=== PATIENT | male | born 1960 | race Caucasian/White ===

== ENCOUNTER 2016-09-12 08:32 | Observation (INO) ==
[2016-09-12] MEDS ORDERED: 0.9 % Sodium Chloride 500 ML IVC ONE (08:35)
[2016-09-12] MEDS ORDERED: Aspirin 81 MG TAB.CHEW PO ONE (08:35)
--- NOTE | 2016-09-12 08:37 | Emergency Department Note ---
Disposition Clinical Impression: Chest pain Disposition: Admitted As Inpatient Condition: Fair General Adult HPI - General Chief complaint: ED Chest Pain Stated complaint: CP/BEN Time Seen by Provider: 09/12/16 08:33 - Related Data Home Medications Medication Instructions Recorded Confirmed ALPRAZolam [Xanax 1 MG Tablet] 1 mg PO QID 06/29/15 09/12/16 Albuterol Sulfate [Albuterol 1 - 2 puff IH Q6HR PRN 06/29/15 09/12/16 Inhaler] Atorvastatin [Lipitor] 40 mg PO DAILY 06/29/15 09/12/16 Mirabegron [Myrbetriq] 50 mg PO DAILY 06/29/15 09/12/16 Nitroglycerin [Nitrostat] 0.4 mg SL PRN PRN 08/19/15 09/12/16 Aspirin 81 mg PO DAILY 09/12/16 09/12/16 Mirtazapine [Remeron] 15 mg PO HS 09/12/16 09/12/16 OxyCODONE/APAP 5/325 [Percocet 1 tab PO Q6HR PRN 09/12/16 09/12/16 5/325 MG] Pantoprazole Sodium [Protonix] 20 mg PO DAILY 09/12/16 09/12/16 Previous Rx's Medication Instructions Recorded Dicyclomine [Bentyl] 20 mg PO QID #56 capsule 12/29/15 Simethicone [Gas-X] 80 mg PO TID #21 tab.chew 12/29/15 Allergies Allergy/AdvReac Type Severity Reaction Status Date / Time cephalexin [From Keflex] Allergy Hives Verified 12/25/15 11:12 ciprofloxacin [From Cipro] Allergy Hives Verified 12/25/15 11:12 clindamycin Allergy Rash Verified 12/24/15 19:52 meperidine [From Demerol] Allergy Rash Verified 12/24/15 19:52 Penicillins Allergy Rash Verified 12/24/15 19:52 sulfamethoxazole Allergy Rash Verified 12/24/15 19:52 [From Bactrim] trimethoprim [From Bactrim] Allergy Rash Verified 12/24/15 19:52 bupropion AdvReac Dizziness Verified 12/24/15 19:52 Past Medical History - Past Medical History Medical history: Reports: asthma, COPD, coronary artery disease, CVA, GERD, hyperlipidemia, hypertension, kidney stones, myocardial infarction, peripheral artery disease, renal disease, other Surgical history: Reports: angioplasty/stent, cholecystectomy, vasectomy Psychiatric history: Reports: no psych history - Social History Smoking Status: Former smoker Smokeless Tobacco Status: No Alcohol use: Reports: occasionally Drug use: Reports: none Course Vital Signs Temperature 97.8 F 09/12/16 08:34 Pulse Rate 72 09/12/16 08:34 Respiratory Rate 16 09/12/16 08:34 Blood Pressure 168/72 09/12/16 08:34 O2 Sat by Pulse Oximetry 98 09/12/16 08:34 Temperature 97.5 F L 09/14/16 04:15 Pulse Rate 70 09/14/16 04:15 Respiratory Rate 16 09/14/16 04:15 Blood Pressure 109/60 09/14/16 04:15 O2 Sat by Pulse Oximetry 98 09/14/16 04:15 Oxygen Delivery Oxygen Delivery Room Air Medical Decision Making - Lab Data Result diagrams: 09/13/16 05:11 09/13/16 05:11 Lab Results 09/12/16 09/12/16 09/12/16 Range/Units 09:05 09:05 09:05 WBC 6.5 (4.3-11.1) K/mcL RBC 4.11 L (4.19-5.50) M/mcL Hgb 12.3 L (12.9-16.9) g/dL Hct 37.6 (37.5-50.1) % MCV 91.5 (83.0-100.0) fL MCH 29.9 (28.0-33.3) pg MCHC 32.7 (31.6-35.5) g/dL RDW 14.4 (11.5-14.5) % Plt Count 136 L (140-400) K/mcL MPV 11.7 (9.4-12.4) fL Immature Gran % 0.3 (0-4) % Seg Neutrophils % 67.2 % Lymphocytes % 21.2 % Monocytes % 8.8 % Eosinophils % 2.2 % Basophils % 0.3 % Neutrophils # 4.4 (1.6-8.9) K/mcL Lymphocytes # 1.4 (0.6-4.6) K/mcL Monocytes # 0.6 (0.0-1.3) K/mcL Eosinophils # 0.1 (0.0-0.6) K/mcL Basophils # 0.0 (0.0-0.2) K/mcL PT 10.3 (9.4-12.1) Seconds INR 1.0 APTT 27.5 (26.0-36.0) Seconds Sodium (136-145) mEq/L Potassium (3.5-4.5) mEq/L Chloride (98-109) mEq/L Carbon Dioxide (19-29) mEq/L BUN (8-26) mg/dL Creatinine (0.72-1.25) mg/dL Est GFR ( Amer) (> 60) Est GFR (Non-Af Amer) (> 60) BUN/Creatinine Ratio (6-26) Glucose (70-99) mg/dL Calculated Osmolality (280-300) Calcium (8.6-10.8) mg/dL Troponin I (0-0.03) ng/mL B-Natriuretic Peptide 86 (0-100) pg/mL 09/12/16 09/12/16 Range/Units 09:05 09:05 WBC (4.3-11.1) K/mcL RBC (4.19-5.50) M/mcL Hgb (12.9-16.9) g/dL Hct (37.5-50.1) % MCV (83.0-100.0) fL MCH (28.0-33.3) pg MCHC (31.6-35.5) g/dL RDW (11.5-14.5) % Plt Count (140-400) K/mcL MPV (9.4-12.4) fL Immature Gran % (0-4) % Seg Neutrophils % % Lymphocytes % % Monocytes % % Eosinophils % % Basophils % % Neutrophils # (1.6-8.9) K/mcL Lymphocytes # (0.6-4.6) K/mcL Monocytes # (0.0-1.3) K/mcL Eosinophils # (0.0-0.6) K/mcL Basophils # (0.0-0.2) K/mcL PT (9.4-12.1) Seconds INR APTT (26.0-36.0) Seconds Sodium 139 (136-145) mEq/L Potassium 4.0 (3.5-4.5) mEq/L Chloride 110 H (98-109) mEq/L Carbon Dioxide 22 (19-29) mEq/L BUN 17 (8-26) mg/dL Creatinine 0.87 (0.72-1.25) mg/dL Est GFR ( Amer) > 60 (> 60) Est GFR (Non-Af Amer) > 60 (> 60) BUN/Creatinine Ratio 20 (6-26) Glucose 101 H (70-99) mg/dL Calculated Osmolality 290 (280-300) Calcium 8.5 L (8.6-10.8) mg/dL Troponin I 0.04 H* (0-0.03) ng/mL B-Natriuretic Peptide (0-100) pg/mL Attestation Statement - Attestation Attestation: I examined this patient and my medical decision-making was reviewed with the PLATING INSPECTOR/PA/Advanced Practice Nurse/Resident Physician. I agree with the documented findings, disposition and treatment plan as described except to the extent set forth below. [id number] time provided Patient reports chest pain since yesterday. He has a history of coronary artery disease and takes nitroglycerin. he has a previous history of myocardial infarctions. Patient seen and evaluated in conjunction with the resident physician Dr. Whalen. He appears in no acute distress on exam
--- NOTE | 2016-09-12 08:47 | Emergency Department Note ---
Disposition Clinical Impression: Chest pain Qualifiers: Chest pain type: unspecified Qualified Code(s): R07.9 - Chest pain, unspecified Disposition: Admitted As Inpatient Condition: Fair Chest Pain HPI - General Chief Complaint: ED Chest Pain Stated Complaint: CP/BEN Time Seen by Provider: 09/12/16 08:33 Source: patient Mode of arrival: ambulatory Limitations: no limitations Vital Signs Reviewed: Yes Nursing Notes Reviewed: Yes - History of Present Illness HPI Narrative: Patient with a past medical history of COPD as well as 5 stents and previous CABG that was performed 2 years ago presents for evaluation of chest pain and dyspnea similar to previous symptoms that required stents and CABG. Patient woke up with chest pain yesterday at 5:30 secondary to chest pain with associated shortness of breath and diaphoresis that was relieved with nitroglycerin. Patient awoke with similar symptoms but has not taken any nitroglycerin. - Related Data Home Medications Medication Instructions Recorded Confirmed ALPRAZolam [Xanax 1 MG Tablet] 1 mg PO QID 06/29/15 09/12/16 Albuterol Sulfate [Albuterol 1 - 2 puff IH Q6HR PRN 06/29/15 09/12/16 Inhaler] Atorvastatin [Lipitor] 40 mg PO DAILY 06/29/15 09/12/16 Mirabegron [Myrbetriq] 50 mg PO DAILY 06/29/15 09/12/16 Nitroglycerin [Nitrostat] 0.4 mg SL PRN PRN 08/19/15 09/12/16 Aspirin 81 mg PO DAILY 09/12/16 09/12/16 Mirtazapine [Remeron] 15 mg PO HS 09/12/16 09/12/16 OxyCODONE/APAP 5/325 [Percocet 1 tab PO Q6HR PRN 09/12/16 09/12/16 5/325 MG] Pantoprazole Sodium [Protonix] 20 mg PO DAILY 09/12/16 09/12/16 Previous Rx's Medication Instructions Recorded Dicyclomine [Bentyl] 20 mg PO QID #56 capsule 12/29/15 Simethicone [Gas-X] 80 mg PO TID #21 tab.chew 12/29/15 Allergies Allergy/AdvReac Type Severity Reaction Status Date / Time cephalexin [From Keflex] Allergy Hives Verified 12/25/15 11:12 ciprofloxacin [From Cipro] Allergy Hives Verified 12/25/15 11:12 clindamycin Allergy Rash Verified 12/24/15 19:52 meperidine [From Demerol] Allergy Rash Verified 12/24/15 19:52 Penicillins Allergy Rash Verified 12/24/15 19:52 sulfamethoxazole Allergy Rash Verified 12/24/15 19:52 [From Bactrim] trimethoprim [From Bactrim] Allergy Rash Verified 12/24/15 19:52 bupropion AdvReac Dizziness Verified 12/24/15 19:52 Review of Systems: CONSTITUTIONAL: Diaphoresis; No weight loss, fever, chills, weakness or fatigue. HEENT: Eyes: No visual changes. Ears, Nose, Throat: No hearing loss, difficulty talking or unable to swallow. SKIN: No rash or itching. CARDIOVASCULAR: Chest pain RESPIRATORY: SOB GASTROINTESTINAL: epigastric burning GENITOURINARY: No burning on urination or hematuria. NEUROLOGICAL: No headache, dizziness, syncope, paralysis, ataxia, numbness or tingling in the extremities. No change in bowel or bladder control. MUSCULOSKELETAL: No muscle pain, back pain, joint pain or stiffness. HEMATOLOGIC: No bleeding or bruising. LYMPHATICS: No enlarged lymphnodes. PSYCHIATRIC: No change to depression or anxiety. ENDOCRINOLOGIC: No reports of heat or cold intolerance, Polyuria ALLERGIES: No history of asthma, hives, eczema or rhinitis. Chest Pain PMH - Past Medical History Medical history: Reports: asthma, COPD, coronary artery disease, CVA, GERD, hyperlipidemia, hypertension, kidney stones, myocardial infarction, peripheral artery disease, renal disease, other Surgical history: Reports: angioplasty/stent, cholecystectomy, vasectomy Psychiatric history: Reports: no psych history - Social History Smoking Status: Former smoker Alcohol use: Reports: occasionally Drug use: Reports: none Physical Exam General appearance: NAD, conversant Eyes: anicteric sclerae, moist conjunctivae; PERRL HENT: Atraumatic; oropharynx clear with moist mucous membranes and no mucosal ulcerations Neck: Normal inspection; Trachea midline; FROM, supple Lungs: CTA, with normal respiratory effort and no intercostal retractions CV: RRR, no MRGs Abdomen: Soft, non-tender; no rebound or gaurding Extremities: No peripheral edema or extremity lymphadenopathy Skin: Normal temperature; no rash, ulcers or lesions Psych: Appropriate mood and affect Neuro: alert and oriented to person, place and time Course - Reevaluation(s) Reevaluation #1: Patient's pain significantly relieved with nitroglycerin. Patient is almost pain-free. Troponin slightly elevated at 0.04. This is consistent with previous troponins. Heparin drip held at this time. - Consultations Consultation #1: Dr. Lyons discussed with hospitalistTrevor. Patient excepted for admission Vital Signs Temperature 97.8 F 09/12/16 08:34 Pulse Rate 72 09/12/16 08:34 Respiratory Rate 16 09/12/16 08:34 Blood Pressure 168/72 09/12/16 08:34 O2 Sat by Pulse Oximetry 98 09/12/16 08:34 Temperature 97.7 F 09/12/16 18:41 Pulse Rate 67 09/12/16 18:41 Respiratory Rate 16 09/12/16 18:41 Blood Pressure 112/66 09/12/16 18:41 O2 Sat by Pulse Oximetry 94 09/12/16 18:41 Oxygen Delivery Oxygen Delivery Room Air Chest Pain - Medical Records Medical records reviewed: Yes I reviewed the patient's medical records. - Lab Data Lab results reviewed: Yes I reviewed the patient's lab results. Result diagrams: 09/12/16 09:05 09/12/16 09:05 Lab Results 09/12/16 09/12/16 09/12/16 Range/Units 09:05 09:05 09:05 WBC 6.5 (4.3-11.1) K/mcL RBC 4.11 L (4.19-5.50) M/mcL Hgb 12.3 L (12.9-16.9) g/dL Hct 37.6 (37.5-50.1) % MCV 91.5 (83.0-100.0) fL MCH 29.9 (28.0-33.3) pg MCHC 32.7 (31.6-35.5) g/dL RDW 14.4 (11.5-14.5) % Plt Count 136 L (140-400) K/mcL MPV 11.7 (9.4-12.4) fL Immature Gran % 0.3 (0-4) % Seg Neutrophils % 67.2 % Lymphocytes % 21.2 % Monocytes % 8.8 % Eosinophils % 2.2 % Basophils % 0.3 % Neutrophils # 4.4 (1.6-8.9) K/mcL Lymphocytes # 1.4 (0.6-4.6) K/mcL Monocytes # 0.6 (0.0-1.3) K/mcL Eosinophils # 0.1 (0.0-0.6) K/mcL Basophils # 0.0 (0.0-0.2) K/mcL PT 10.3 (9.4-12.1) Seconds INR 1.0 APTT 27.5 (26.0-36.0) Seconds Sodium (136-145) mEq/L Potassium (3.5-4.5) mEq/L Chloride (98-109) mEq/L Carbon Dioxide (19-29) mEq/L BUN (8-26) mg/dL Creatinine (0.72-1.25) mg/dL Est GFR ( Amer) (> 60) Est GFR (Non-Af Amer) (> 60) BUN/Creatinine Ratio (6-26) Glucose (70-99) mg/dL Calculated Osmolality (280-300) Calcium (8.6-10.8) mg/dL Troponin I (0-0.03) ng/mL B-Natriuretic Peptide 86 (0-100) pg/mL 09/12/16 09/12/16 Range/Units 09:05 09:05 WBC (4.3-11.1) K/mcL RBC (4.19-5.50) M/mcL Hgb (12.9-16.9) g/dL Hct (37.5-50.1) % MCV (83.0-100.0) fL MCH (28.0-33.3) pg MCHC (31.6-35.5) g/dL RDW (11.5-14.5) % Plt Count (140-400) K/mcL MPV (9.4-12.4) fL Immature Gran % (0-4) % Seg Neutrophils % % Lymphocytes % % Monocytes % % Eosinophils % % Basophils % % Neutrophils # (1.6-8.9) K/mcL Lymphocytes # (0.6-4.6) K/mcL Monocytes # (0.0-1.3) K/mcL Eosinophils # (0.0-0.6) K/mcL Basophils # (0.0-0.2) K/mcL PT (9.4-12.1) Seconds INR APTT (26.0-36.0) Seconds Sodium 139 (136-145) mEq/L Potassium 4.0 (3.5-4.5) mEq/L Chloride 110 H (98-109) mEq/L Carbon Dioxide 22 (19-29) mEq/L BUN 17 (8-26) mg/dL Creatinine 0.87 (0.72-1.25) mg/dL Est GFR ( Amer) > 60 (> 60) Est GFR (Non-Af Amer) > 60 (> 60) BUN/Creatinine Ratio 20 (6-26) Glucose 101 H (70-99) mg/dL Calculated Osmolality 290 (280-300) Calcium 8.5 L (8.6-10.8) mg/dL Troponin I 0.04 H* (0-0.03) ng/mL B-Natriuretic Peptide (0-100) pg/mL - Radiology Data Radiology results reviewed: Yes I reviewed the patient's radiology results. - EKG Data EKG attestation: Yes I reviewed and interpreted this EKG. EKG results narrative: EKG shows sinus rhythm with ventricular rate of 68. [place] interval 142. QRS 96. QTC 415. There is no evidence of acute ST elevation or depressions. There is some mild flattening of V2 T-wave otherwise no acute abnormality previous EKG of 04/20/16.
[2016-09-12] MEDS: Nitroglycerin 0.4 MG TAB.SUBL SL ONE ×2 (08:55→09:01)
[2016-09-12 09:14] LABS: Basophils % 0.3 %; Eosinophils # 0.1 K/mcL (0.0-0.6); Eosinophils % 2.2 %; Hematocrit 37.6 % (37.5-50.1); Hemoglobin 12.3 g/dL (12.9-16.9); Immature Granulocytes % 0.3 % (0-4); Lymphocytes # 1.4 K/mcL (0.6-4.6); Lymphocytes % 21.2 %; Mean Corpuscular HGB Conc 32.7 g/dL (31.6-35.5); Mean Corpuscular Hemoglobin 29.9 pg (28.0-33.3); Mean Corpuscular Volume 91.5 fL (83.0-100.0); Mean Platelet Volume 11.7 fL (9.4-12.4); Monocytes # 0.6 K/mcL (0.0-1.3); Monocytes % 8.8 %; Neutrophils # 4.4 K/mcL (1.6-8.9); Platelet Count 136 K/mcL (140-400); Red Blood Count 4.11 M/mcL (4.19-5.50); Red Cell Distribution Width 14.4 % (11.5-14.5); Segmented Neutrophils % 67.2 %
[2016-09-12 09:18] LABS: Prothrombin Time 10.3 Seconds (9.4-12.1)
[2016-09-12 09:20] LABS: Activated Partial Thrombo Time 27.5 Seconds (26.0-36.0)
[2016-09-12 09:26] LABS: Calcium 8.5 mg/dL (8.6-10.8); Carbon Dioxide 22 mEq/L (19-29); Chloride 110 mEq/L (98-109); Glucose 101 mg/dL (70-99); Sodium 139 mEq/L (136-145); eGFR For African Americans > 60 (> 60); eGFR For Non-African Americans > 60 (> 60)
[2016-09-12 09:58] LABS: BUN/Creatinine Ratio 20 (6-26); Blood Urea Nitrogen 17 mg/dL (8-26); Osmolality,Calculated 290 (280-300)
[2016-09-12] MEDS ORDERED: Naloxone 0.4 MG/ML INJ IVP PRN (11:38)
[2016-09-12] MEDS ORDERED: Nitroglycerin 0.4 MG TAB.SUBL SL PRN (11:40)
--- NOTE | 2016-09-12 12:02 | Internal Med History&Physical ---
<Maral Murray - Last Filed: 09/12/16 16:51> Date of Encounter: 09/12/16 Time of Encounter: 12:00 Assessment and Plan (1) Chest pain Current visit: Yes Status: Acute 1 patient was awakened with chest pain which was relieved with nitroglycerin he does have an extensive cardiac history with CABG stents mitral valve replacement. Cardiac troponins 0.04 he does seem to have chronically elevated troponins we will continue to cycle. 2 continuous cardiac monitoring 3 consult cardiology I did speak with Dr. Esteban will see patient 4 nitroglycerin as needed for chest pain 5 continue with aspirin and statin beta quyen Qualifiers: Chest pain type: unspecified Qualified Code(s): R07.9 - Chest pain, unspecified (2) HTN (hypertension) Current visit: Yes Status: Acute 1 continue home medications goals maintain systolic less than 140 Qualifiers: Hypertension type: essential hypertension Qualified Code(s): I10 - Essential (primary) hypertension (3) COPD (chronic obstructive pulmonary disease) Current visit: Yes Status: Acute 1 presently stable we will continue with bronchodilators 2 oxygen as needed Qualifiers: COPD type: unspecified COPD Qualified Code(s): J44.9 - Chronic obstructive pulmonary disease, unspecified (4) Coronary artery disease Current visit: No Status: Chronic 1 continue with aspirin and statin and beta quyen Qualifiers: Coronary Disease-Associated Artery/Lesion type: [place] artery [place] vs. transplanted heart: [place] heart Associated angina: with unstable angina Qualified Code(s): I25.110 - Atherosclerotic heart disease of [place] coronary artery with unstable angina pectoris (5) DVT prophylaxis Current visit: Yes Status: Acute Enoxaparin Internal Medicine - H&P: HPI Chief complaint: Chest pain Admitted From: Emergency Dept Plans for Post Hospital Care: Home History of present illness: Mr. Champion is a 56 year old male with extensive medical history including COPD coronary artery disease 5 stents CABG 2 years ago hypertension mitral valve replacement CVA. According to the patient he was awakened yesterday morning by midsternal chest pain that he described as squeezing spasm like that radiated to his epigastric region . He also experienced shortness of breath and diaphoresis during this episode. He took 2 nitroglycerin which did relieve his pain. This a.m. the patient awoke the same symptoms he did not take any nitroglycerin was concerned about his heart so he presented to the ER for evaluation. Patient does state that he has been seen at [facility] as well as [facility] for cardiology management. He was recently on Coumadin I suspect for mural thrombus?. He states he had a TOI completed 3 weeks ago and his physician switched him to full strength aspirin. He also states that he had a link placed last year after he sustained a stroke He states he has been doing well up until yesterday. According to ER records first cardiac troponins 0.04 which seems to be chronically elevated he did have an echo of June this year which revealed EF of 50-55% with mild mitral stenosis and mild tricuspid regurg and mild pulmonary hypertension. EKG with nonspecific T-wave changes chest x- ray no acute findings. Patient has been admitted for further workup and evaluation. Presently patient denies any chest pain or shortness of breath at this time. He does not appear to be in any respiratory distress. He is sinus rhythm on the monitor lung sounds are clear heart sounds S1-S2 with no rub clipped counts murmurs noted no peripheral edema. Patient does state that he does experience epigastric discomfort during his chest pain. He is concerned about the epigastric discomfort. It does appear that he did have GI workup approximately one month ago EGD was normal gastric emptying study was normal He is hemodynamically stable at this time. I reviewed this case with who agrees with plan. Past Med Surg Social Fam HX - Past Medical History Medical history: asthma, COPD, coronary artery disease, CVA, GERD, hyperlipidemia, hypertension, kidney stones, myocardial infarction, peripheral artery disease, renal disease, other Psychiatric history: no psych history - Past Surgical History Surgical History: angioplasty/stent, cholecystectomy, vasectomy - Social History Smoking Status: Former smoker Smokeless Tobacco Status: No Alcohol use: occasionally Drug use: none - Family History Father Living Status: Still Living Hx Family Cardiac Disorders: Yes Hx Family Respiratory Disorders: Yes (COPD) Hx Family Cancer: Yes Hx Family GI Disorders: Yes (Ulcers) Hx Family Endocrine Disorder: No Hx Family Neuromuscular Disorders: No Hx Family Neurologic Disorders: No Hx Family HEENT Disorders: No Hx Family Autoimmune Disorders: No Mother Living Status: Still Living Hx Family Cardiac Disorders: Yes (NH, stents) Hx Family Respiratory Disorders: No Hx Family Cancer: Yes (Stomach) Hx Family GI Disorders: No Hx Family Endocrine Disorder: Yes (DM) Hx Family Neuromuscular Disorders: No Hx Family Neurologic Disorders: No Hx Family HEENT Disorders: No Hx Family Autoimmune Disorders: No Internal Medicine - H&P: Meds ALPRAZolam [Xanax 1 MG Tablet] 1 mg PO QID 06/29/15 [History] Albuterol Sulfate [Albuterol Inhaler] 1 - 2 puff IH Q6HR PRN 06/29/15 [History] Atorvastatin [Lipitor] 40 mg PO DAILY 06/29/15 [History] Mirabegron [Myrbetriq] 50 mg PO DAILY 06/29/15 [History] Nitroglycerin [Nitrostat] 0.4 mg SL PRN PRN 08/19/15 [History] Dicyclomine [Bentyl] 20 mg PO QID #56 capsule 12/29/15 [Rx] Simethicone [Gas-X] 80 mg PO TID #21 tab.chew 12/29/15 [Rx] Aspirin 81 mg PO DAILY 09/12/16 [History] Mirtazapine [Remeron] 15 mg PO HS 09/12/16 [History] OxyCODONE/APAP 5/325 [Percocet 5/325 MG] 1 tab PO Q6HR PRN 09/12/16 [History] Pantoprazole Sodium [Protonix] 20 mg PO DAILY 09/12/16 [History] Allergies cephalexin [From Keflex] Allergy (Verified 12/25/15 11:12) Hives ciprofloxacin [From Cipro] Allergy (Verified 12/25/15 11:12) Hives clindamycin Allergy (Verified 12/24/15 19:52) Rash meperidine [From Demerol] Allergy (Verified 12/24/15 19:52) Rash Penicillins Allergy (Verified 12/24/15 19:52) Rash sulfamethoxazole [From Bactrim] Allergy (Verified 12/24/15 19:52) Rash trimethoprim [From Bactrim] Allergy (Verified 12/24/15 19:52) Rash bupropion Adverse Reaction (Verified 12/24/15 19:52) Dizziness All Systems PM: A 10-system review of systems was performed and is negative for pertinent findings except as documented above in the HPI. - Constitutional Constitutional: no chills, no fever(s), no night sweats - EENT Eyes: no change in vision, no discharge, no pain, no photophobia Nose, mouth and throat: no dysphagia, no nasal discharge, no neck pain, no sore throat - Cardiovascular Cardiovascular ROS IM: no chest pain, no diaphoresis, no dyspnea, no lightheadedness, no palpitations, no syncope - Respiratory Respiratory: no cough, no dyspnea, no wheezing, no excessive phlegm production - Gastrointestinal Gastrointestinal: abdominal pain, no diarrhea, no hematemesis, no hematochezia, no melena, no nausea, no vomiting - Musculoskeletal Musculoskeletal ROS IM: no numbness, no tingling - Constitutional Vitals: Temp Pulse Resp BP Pulse Ox 97.8 F 57 16 133/79 98 09/12/16 08:34 09/12/16 11:47 09/12/16 11:47 09/12/16 11:47 09/12/16 11:47 General appearance: Present: A&O X 3, answers questions appropriately - Head Head exam: Present: atraumatic, normocephalic - Eye Eye exam: Present: PERRL, conjuntiva pink, sclera anicteric Pupils: Present: PERRL - Neck Neck exam general surgery: Present: supple, trachea midline. Absent: lymphadenopathy - Respiratory Respiratory exam: Present: CTAB. Absent: accessory muscle use, rales, rhonchi, wheezes - Cardiovascular Cardiovascular exam: Present: RRR, +S1, +S2. Absent: diastolic murmur, gallop, rubs, systolic murmur - GI/Abdominal GI/Abdominal exam: Present: normal bowel sounds, soft, no peritoneal signs. Absent: distended, tenderness - Extremities Exam Extremities exam: Present: warm, radial pulses palpable and symetrical. Absent : calf tenderness, cyanotic, pedal edema - Neurological Exam Neurological exam: Present: CN II-XII intact, oriented X3, no focal deficits. Absent: pronater drift, facial droop, speech deficit - Skin Skin exam: Present: dry, intact Internal Med - H&P Results - Labs CBC & Chem 7: 09/12/16 09:05 09/12/16 09:05 Labs: Short CBC 09/12/16 Range/Units 09:05 WBC 6.5 (4.3-11.1) K/mcL Hgb 12.3 L (12.9-16.9) g/dL Hct 37.6 (37.5-50.1) % Plt Count 136 L (140-400) K/mcL Neutrophils # 4.4 (1.6-8.9) K/mcL BMP 09/12/16 09:05 Sodium 139 Potassium 4.0 Chloride 110 H Carbon Dioxide 22 BUN 17 Creatinine 0.87 Glucose 101 H Calcium 8.5 L Cardiac Enzymes 09/12/16 Range/Units 09:05 Troponin I 0.04 H* (0-0.03) ng/mL - EKG Data EKG shows normal: sinus rhythm - EKG Data Prior EKG available for review: yes When compared to previous EKG: there is no significant change - Impressions ITS Impressions Chest X-Ray 09/12/16 08:35 IMPRESSION: Mild bibasilar atelectasis. No focal consolidation. D/ / Earlene Rome MD / Earlene Rome MD Interpreting Provider: Earlene Rome MD - Diagnostic Studies Other Images Additional comments: Chest X-Ray 09/12/16 08:35 IMPRESSION: Mild bibasilar atelectasis. No focal consolidation. D/ / Earlene Rome MD / Earlene Rome MD Interpreting Provider: Earlene Rome MD <Rogelio Castro T - Last Filed: 09/12/16 17:37> Date of Encounter: 09/12/16 Internal Medicine - H&P: HPI History of present illness: Mr. Champion is a 56 year old male All Systems PM: A 10-system review of systems was performed and is negative for pertinent findings except as documented above in the HPI. - Constitutional Vitals: Temp Pulse Resp BP Pulse Ox 97.6 F 66 15 144/79 96 09/12/16 14:21 09/12/16 14:21 09/12/16 14:21 09/12/16 14:21 09/12/16 14:21 Internal Med - H&P Results - Labs CBC & Chem 7: 09/12/16 09:05 09/12/16 09:05 Labs: Cardiac Enzymes 09/12/16 Range/Units 14:34 Troponin I 0.03 (0-0.03) ng/mL - Attending Attestation 56 year old male with extensive medical history including COPD, CAD s/p stents/ CABG, HTN, s/p CVA, s/p MVR Patient is seen and independently examined Physical exam unremarkable Labs and Imaging reviewed: Chronic thrombocytopenia, Chronically elevated troponin, EKG with biphasic Twaves i V2, new. A/P: Unstable angina, continue ASA/Statin, cycle trops, consult cardiology, Rest of details as in FEDERICA Murray' documentation which i agree with
[2016-09-12] MEDS ORDERED: *HR* OxyCODONE/APAP 5/325 TABLET PO ONE (12:56)
[2016-09-12] MEDS: ALPRAZolam 1 MG TABLET PO SCH ×3 (15:14→21:16)
[2016-09-12] MEDS: Simethicone 80 MG TAB.CHEW PO SCH ×2 (16:45→21:16)
[2016-09-12] MEDS: *HR* OxyCODONE/APAP 5/325 TABLET PO PRN (20:13)
--- NOTE | 2016-09-12 20:25 | Electrocardiograph Report ---
[place] [address] Test Date: 2016-09-12 Pat Name: Warren Champion Department: 105 Room: 3B14 Gender: M Crew Leader/Control Room Operator: AM : 1960 Requested By: Rajinder Whalen Order Number: [id number] Reading MD: Bo Mak MD Measurements Intervals [place] Rate: 68 P: 64 DE: 142 QRS: 73 QRSD: 96 T: 47 QT: 398 QTc: 415 Interpretive Statements SINUS RHYTHM LEFT ATRIAL ENLARGEMENT Electronically Signed On 09-12-2016 20:23:56 EDT by Bo Mak MD
[2016-09-12] MEDS: Mirtazapine 15 MG TABLET PO SCH (21:16)
[2016-09-13 05:46] LABS: BUN/Creatinine Ratio 16 (6-26); Basophils % 0.4 %; Blood Urea Nitrogen 15 mg/dL (8-26); Calcium 8.4 mg/dL (8.6-10.8); Carbon Dioxide 23 mEq/L (19-29); Chloride 112 mEq/L (98-109); Chol/HDL Ratio 4.5 (0-4.9); Cholesterol 122 mg/dL (< 200); Eosinophils # 0.2 K/mcL (0.0-0.6); Eosinophils % 4.1 %; Glucose 89 mg/dL (70-99); HDL Cholesterol 27 mg/dL (40-59); Hematocrit 37.3 % (37.5-50.1); Immature Granulocytes % 0.2 % (0-4); LDL Cholesterol,Calculated 76 mg/dL (0-99); Lymphocytes # 1.5 K/mcL (0.6-4.6); Lymphocytes % 28.4 %; Mean Corpuscular HGB Conc 32.2 g/dL (31.6-35.5); Mean Corpuscular Hemoglobin 29.6 pg (28.0-33.3); Mean Corpuscular Volume 91.9 fL (83.0-100.0); Mean Platelet Volume 12.2 fL (9.4-12.4); Monocytes # 0.5 K/mcL (0.0-1.3); Monocytes % 8.5 %; Neutrophils # 3.2 K/mcL (1.6-8.9); Osmolality,Calculated 290 (280-300); Platelet Count 139 K/mcL (140-400); Potassium 4.3 mEq/L (3.5-4.5); Red Blood Count 4.06 M/mcL (4.19-5.50); Red Cell Distribution Width 14.4 % (11.5-14.5); Segmented Neutrophils % 58.4 %; Sodium 140 mEq/L (136-145); Triglycerides 94 mg/dL (< 150); eGFR For African Americans > 60 (> 60); eGFR For Non-African Americans > 60 (> 60)
[2016-09-13] MEDS: Aspirin 81 MG TAB.CHEW PO SCH (08:52)
[2016-09-13] MEDS: Simethicone 80 MG TAB.CHEW PO SCH ×3 (08:53→20:02)
[2016-09-13] MEDS: ALPRAZolam 1 MG TABLET PO SCH ×4 (08:54→20:02)
--- NOTE | 2016-09-13 11:17 | Cardiology Consult Note ---
Date of Encounter: 09/13/16 Time of Encounter: 11:11 Assessment and Plan (1) Chest pain Current Visit: Yes Status: Acute Reports chest/epigastric discomfort 2 mornings prior to admission, relieved with nitro. Pt unable to recall if this is similar to prior anginal equivalent. No significant EKG changes. Recent TOI 08/19/16 at [facility] EF 60-65%. No evidence of LV thrombus. Troponins 0.04, 0.03, 0.04. Hx of chronically borderline troponins. [facility] in 2012 pt received DENG to 99% mid circ lesion, had moderate 3 vessel disease and atrectic/occluded TILLMAN. [place] left main had 40-50% stenosis and [place] LAD with 50-60% mid LAD stenosis. Pt denies any ischemic evaluation since that time. Pt has already eaten breakfast this AM. Plan for pharmacologic nuclear stress test in AM to further evaluate. Qualifiers: Chest pain type: unspecified Qualified Code(s): R07.9 - Chest pain, unspecified (2) H/O mitral valve repair Current Visit: Yes Status: Chronic Hx of mitral valve ring annuloplasty. TOI 08/19/16 at [facility]. Mild-moderate mitral valve regurgitation and mild stenosis. (3) Coronary artery disease Current Visit: No Status: Chronic As above, hx of CABG and PCI. [facility] 2012 with DENG to mid circ, occluded TILLMAN and moderate 3 vessel disease otherwise. Continue ASA and Statin. Currently not on BB. Will not initiate since AVG HR is 59. Qualifiers: Coronary Disease-Associated Artery/Lesion type: [place] artery [place] vs. transplanted heart: [place] heart Associated angina: with unstable angina Qualified Code(s): I25.110 - Atherosclerotic heart disease of [place] coronary artery with unstable angina pectoris (4) Elevated troponin Current Visit: Yes Status: Acute Borderline--0.04, 0.03, 0.04. Hx of chronically borderline troponins. Nondiagnostic for ACS. Plan as above, stress in AM. Discussion w patient/family: The assessment and plan as outlined above was discussed with the patient and/or family members who expressed understanding and agreement. All questions were answered. Thank you for involving us in the care of your patient. Please call with any questions. History of Present Illness Consult date: 09/13/16 Requesting physician: Rogelio Castro Consult reason: Chest pain Chief complaint: chest/epigastric pain History of present illness: Mr. Champion is a 56 year old male with PMH significant for CAD s/p CABG 2009, hx of NSTEMI in 2012 and underwent LHC demonstrating atretic, occluded TILLAMN and had PCI with DENG to mLCx. LV function previously has been normal. He also had a complex mitral valve repair in the past. He has hx of CVA and loop recorder insertion in 2014. Hx of suspected LV mural thrombus in setting of CVA and previously on Coumadin. He receives all his cardiology care in [place] at [facility] and [place]. He recently had a TOI at [facility] 08/19/16. No evidence of thrombus, so Coumadin has been discontinued. Pt presented to ED for chest pain that woke him 2 days ago, described as squeezing spasm like that radiated to his epigastric region . He also experienced shortness of breath and diaphoresis. He took 2 nitroglycerin with relief. Yesterday a.m. the patient awoke the same symptoms he did not take any nitroglycerin was concerned about his heart so he presented to the ER for evaluation. Also reports increased fatigue over the past 6 months. Troponin 0.04, troponins are chronically borderline/mildly elevated. Pt currently chest pain free. No significant EKG changes. Past Med Surg Social Fam HX - Past Medical History Medical history: asthma, COPD, coronary artery disease, CVA, GERD, hyperlipidemia, hypertension, kidney stones, myocardial infarction, peripheral artery disease, renal disease, other Psychiatric history: no psych history - Past Surgical History Surgical History: angioplasty/stent, cholecystectomy, vasectomy - Social History Smoking Status: Former smoker Smokeless Tobacco Status: No Alcohol use: occasionally Drug use: none - Family History Father Living Status: Still Living Hx Family Cardiac Disorders: Yes Hx Family Respiratory Disorders: Yes (COPD) Hx Family Cancer: Yes Hx Family GI Disorders: Yes (Ulcers) Hx Family Endocrine Disorder: No Hx Family Neuromuscular Disorders: No Hx Family Neurologic Disorders: No Hx Family HEENT Disorders: No Hx Family Autoimmune Disorders: No Mother Living Status: Still Living Hx Family Cardiac Disorders: Yes (UT, stents) Hx Family Respiratory Disorders: No Hx Family Cancer: Yes (Stomach) Hx Family GI Disorders: No Hx Family Endocrine Disorder: Yes (DM) Hx Family Neuromuscular Disorders: No Hx Family Neurologic Disorders: No Hx Family HEENT Disorders: No Hx Family Autoimmune Disorders: No Medications and Allergies ALPRAZolam [Xanax 1 MG Tablet] 1 mg PO QID 06/29/15 [History] Albuterol Sulfate [Albuterol Inhaler] 1 - 2 puff IH Q6HR PRN 06/29/15 [History] Atorvastatin [Lipitor] 40 mg PO DAILY 06/29/15 [History] Mirabegron [Myrbetriq] 50 mg PO DAILY 06/29/15 [History] Nitroglycerin [Nitrostat] 0.4 mg SL PRN PRN 08/19/15 [History] Dicyclomine [Bentyl] 20 mg PO QID #56 capsule 12/29/15 [Rx] Simethicone [Gas-X] 80 mg PO TID #21 tab.chew 12/29/15 [Rx] Aspirin 81 mg PO DAILY 09/12/16 [History] Mirtazapine [Remeron] 15 mg PO HS 09/12/16 [History] OxyCODONE/APAP 5/325 [Percocet 5/325 MG] 1 tab PO Q6HR PRN 09/12/16 [History] Pantoprazole Sodium [Protonix] 20 mg PO DAILY 09/12/16 [History] Allergies cephalexin [From Keflex] Allergy (Verified 12/25/15 11:12) Hives ciprofloxacin [From Cipro] Allergy (Verified 12/25/15 11:12) Hives clindamycin Allergy (Verified 12/24/15 19:52) Rash meperidine [From Demerol] Allergy (Verified 12/24/15 19:52) Rash Penicillins Allergy (Verified 12/24/15 19:52) Rash sulfamethoxazole [From Bactrim] Allergy (Verified 12/24/15 19:52) Rash trimethoprim [From Bactrim] Allergy (Verified 12/24/15 19:52) Rash bupropion Adverse Reaction (Verified 12/24/15 19:52) Dizziness All Systems Review: A 10-system review of systems was performed and is negative for pertinent findings except as documented above in the HPI. - Constitutional Constitutional: fatigue - Cardiovascular Cardiovascular: as per HPI, chest pain at rest, diaphoresis, dyspnea at rest, dyspnea on exertion - Respiratory Respiratory: dyspnea Physical Examination Vital Signs, Last 4 Hours Temp Pulse Resp BP Pulse Ox 09/13/16 08:00 97.5 F L 64 15 133/85 93 Vital Signs Temp Pulse Resp BP Pulse Ox 09/13/16 08:00 97.5 F L 64 15 133/85 93 09/13/16 04:07 97.4 F L 60 16 128/80 95 09/12/16 22:21 97.4 F L 62 16 116/72 95 09/12/16 18:41 97.7 F 67 16 112/66 94 09/12/16 14:21 97.6 F 66 15 144/79 96 09/12/16 14:00 16 121/74 09/12/16 12:38 60 16 148/85 97 09/12/16 11:47 57 16 133/79 98 Intake and Output 09/12/16 09/13/16 09/13/16 23:59 07:59 15:59 Intake Total 220 / 220 0 / 0 Balance 220 / 220 0 / 0 Intake: Oral 220 / 220 0 / 0 Other: Meal Dinner Breakfast Percent of Meal Consumed 100% 100% Weight 92.941 kg Patient Weight 09/13/16 23:59 Weight 92.941 kg General: Conversant, No Apparent Distress HEENT: Atraumatic, Normocephaly, Mucus Membranes Moist Neck: No JVD, Normal carotid pulses Cardiac: Reg Rate and Rhythm, Normal S1 and S2, No Murmur Lungs: Normal Breath Sounds, No Wheeze, Rales, Rhonchi Neuro: Alert and responsive, No focal deficits noted Abdomen: Soft, Non-Tender Skin: No rashes noted on visualized skin Musculoskeletal: No Chest Wall Tenderness Extremities: No Clubbing, No Cyanosis, No Edema, Normal Pulses Results 09/13/16 05:11 09/13/16 05:11 Lab Results 09/12/16 09/12/16 09/13/16 14:34 21:08 05:11 WBC 5.4 Hgb 12.0 L Hct 37.3 L Plt Count 139 L Sodium Potassium Chloride Carbon Dioxide BUN Creatinine Glucose Calcium Troponin I 0.03 0.04 H* 09/13/16 05:11 WBC Hgb Hct Plt Count Sodium 140 Potassium 4.3 Chloride 112 H Carbon Dioxide 23 BUN 15 Creatinine 0.95 Glucose 89 Calcium 8.4 L Troponin I Short CBC 09/13/16 Range/Units 05:11 WBC 5.4 (4.3-11.1) K/mcL Hgb 12.0 L (12.9-16.9) g/dL Hct 37.3 L (37.5-50.1) % Plt Count 139 L (140-400) K/mcL Neutrophils # 3.2 (1.6-8.9) K/mcL BMP 09/13/16 Range/Units 05:11 Sodium 140 (136-145) mEq/L Potassium 4.3 (3.5-4.5) mEq/L Chloride 112 H (98-109) mEq/L Carbon Dioxide 23 (19-29) mEq/L BUN 15 (8-26) mg/dL Creatinine 0.95 (0.72-1.25) mg/dL Glucose 89 (70-99) mg/dL Calcium 8.4 L (8.6-10.8) mg/dL Cardiac Enzymes 09/12/16 09/12/16 Range/Units 21:08 14:34 Troponin I 0.04 H* 0.03 (0-0.03) ng/mL Active Medications Albuterol Sulfate (Albuterol Inhaler) 2 puff IH Q6HR PRN PRN Reason: Allergy Symptoms Stop: 03/14/17 11:41 Alprazolam (Xanax) 1 mg PO QID [facility] PRN Reason: Protocol Stop: 03/14/17 13:01 Last Admin: 09/13/16 08:54 Dose: 1 mg Aspirin (Aspirin) 81 mg PO DAILY [facility] Stop: 03/15/17 09:01 Last Admin: 09/13/16 08:52 Dose: 81 mg Atorvastatin Calcium (Lipitor) 40 mg PO DAILY [facility] Stop: 03/15/17 09:01 Last Admin: 09/13/16 08:53 Dose: 40 mg Dicyclomine HCl (Bentyl) 20 mg PO QID [facility] Stop: 03/14/17 13:01 Last Admin: 09/13/16 08:52 Dose: 20 mg Mirtazapine (Remeron) 15 mg PO HS [facility] Stop: 03/14/17 21:01 Last Admin: 09/12/16 21:16 Dose: 15 mg Naloxone HCl (Narcan) 0.4 mg IVP Q2MIN PRN PRN Reason: Opioid Reversal Stop: 03/14/17 11:39 Nitroglycerin (Nitroglycerin) 0.4 mg SL Q5MIN PRN PRN Reason: Chest Pain Stop: 03/14/17 11:41 Omeprazole (Prilosec) 20 mg PO DAILY [facility] Stop: 03/15/17 09:01 Last Admin: 09/13/16 08:54 Dose: 20 mg Oxycodone/Acetaminophen (Percocet 5/325) 1 each PO Q6HR PRN PRN Reason: Pain Stop: 03/14/17 11:41 Last Admin: 09/12/16 20:13 Dose: 1 each Pharmacy Profile Note (Patient Taking Own Medication) 0 each PO DAILY [facility] Stop: 03/15/17 09:01 Last Admin: 09/13/16 08:53 Dose: Not Given Simethicone (Gas-X) 80 mg PO TID [facility] Stop: 03/14/17 15:01 Last Admin: 09/13/16 08:53 Dose: 80 mg - Imaging and Cardiology Echo: report reviewed Cardiac cath: report reviewed - EKG Interpretation EKG results cardiology: personally reviewed (SR, no significant change from prior), other (24 hour tele AVG HR 59, no significant pauses or arrhythmias noted.) Consult Discharge Plan - Plan Referrals: Graham Holden MD [Primary Care Provider] -
--- NOTE | 2016-09-13 12:08 | Internal Med Progress Note ---
Date of Encounter: 09/13/16 Time of Encounter: 12:05 - Assessment and plan (1) Coronary artery disease Current Visit: No Status: Chronic Assessment and plan: With angina/angina equivalents Continue ASA/Statin Not on BB due to bradycardia Qualifiers: Coronary Disease-Associated Artery/Lesion type: [place] artery [place] vs. transplanted heart: [place] heart Associated angina: with unstable angina Qualified Code(s): I25.110 - Atherosclerotic heart disease of [place] coronary artery with unstable angina pectoris (2) Hyperlipidemia Current Visit: Yes Status: Chronic Assessment and plan: Continue statin Qualifiers: Hyperlipidemia type: unspecified Qualified Code(s): E78.5 - Hyperlipidemia , unspecified (3) HTN (hypertension) Current Visit: Yes Status: Chronic Assessment and plan: Controlled, continue meds Qualifiers: Hypertension type: essential hypertension Qualified Code(s): I10 - Essential (primary) hypertension (4) COPD (chronic obstructive pulmonary disease) Current Visit: Yes Status: Chronic Assessment and plan: Not wheezing, no evidence of exacerbation, duonebs prn Qualifiers: COPD type: unspecified COPD Qualified Code(s): J44.9 - Chronic obstructive pulmonary disease, unspecified (5) Chest pain Current Visit: Yes Status: Acute Assessment and plan: Follow [facility] report Will follow cardiology recommendations Qualifiers: Chest pain type: unspecified Qualified Code(s): R07.9 - Chest pain, unspecified (6) H/O mitral valve repair Current Visit: Yes Status: Chronic Assessment and plan: Chronic, stable, LINC in-situ - Subjective Interval history: Seen and evaluated at bedside Patient is being worked up for chest pain r/o ACS No new complains Still thinks his abdomen is distended, he had a Gastric study done in 07/2016 which was normal Per cardiology, he will undergo C - Constitutional Vitals: Temp Pulse Resp BP Pulse Ox 97.6 F 63 18 127/87 95 09/13/16 11:40 09/13/16 11:40 09/13/16 11:40 09/13/16 11:40 09/13/16 11:40 General appearance: Present: A&O X 3, no acute distress, answers questions appropriately - Head Head exam: Present: atraumatic, normocephalic - Eye Eye exam: Present: PERRL, conjuntiva pink, sclera anicteric Pupils: Present: PERRL - Neck Neck exam general surgery: Present: supple, trachea midline. Absent: lymphadenopathy - Respiratory Respiratory exam: Present: CTAB. Absent: accessory muscle use, rales, rhonchi, wheezes - Cardiovascular Cardiovascular exam: Present: RRR, +S1, +S2. Absent: diastolic murmur, gallop, rubs, systolic murmur - GI/Abdominal GI/Abdominal exam: Present: normal bowel sounds, soft, no peritoneal signs. Absent: distended, tenderness - Extremities Exam Extremities exam: Present: warm, radial pulses palpable and symetrical. Absent : calf tenderness, cyanotic, pedal edema - Neurological Exam Neurological exam: Present: alert, CN II-XII intact, oriented X3, no focal deficits. Absent: pronater drift, facial droop, speech deficit - Skin Skin exam: Present: dry, intact Internal Medicine: Result - Labs CBC & Chem 7: 09/13/16 05:11 09/13/16 05:11 Labs: Short CBC 09/13/16 Range/Units 05:11 WBC 5.4 (4.3-11.1) K/mcL Hgb 12.0 L (12.9-16.9) g/dL Hct 37.3 L (37.5-50.1) % Plt Count 139 L (140-400) K/mcL Neutrophils # 3.2 (1.6-8.9) K/mcL BMP 09/13/16 05:11 Sodium 140 Potassium 4.3 Chloride 112 H Carbon Dioxide 23 BUN 15 Creatinine 0.95 Glucose 89 Calcium 8.4 L Cardiac Enzymes 09/12/16 09/12/16 Range/Units 14:34 21:08 Troponin I 0.03 0.04 H* (0-0.03) ng/mL - ABG Interpretation ABG results: PT/INR, D-dimer PT 10.3 Seconds (9.4-12.1) 09/12/16 09:05 Consult Discharge Plan - Plan Referrals: Graham Holden MD [Primary Care Provider] -
[2016-09-13] MEDS: *HR* OxyCODONE/APAP 5/325 TABLET PO PRN (12:11)
[2016-09-13] MEDS ORDERED: Verapamil 5 MG/2 ML VIAL ONE (13:14)
[2016-09-13] MEDS ORDERED: 0.9 % Sodium Chloride 1,000 ML ONE ×2 (13:15→13:56)
[2016-09-13] MEDS ORDERED: Heparin 1,000 UNITS/500 mL NS 500 ML ONE (13:15)
[2016-09-13] MEDS ORDERED: *HR* Heparin 10,000 UNIT/10 ML VIAL ONE (13:15)
[2016-09-13] MEDS ORDERED: Nitroglycerin 1,000 MCG/10 ML VIAL IV ONE (13:15)
[2016-09-13] MEDS ORDERED: *HR* FentaNYL (PF) 100 MCG/2 ML VIAL ONE (13:55)
[2016-09-13] MEDS ORDERED: *HR* Midazolam HCl 2 MG/2 ML VIAL ONE (13:55)
[2016-09-13] MEDS ORDERED: Tirofiban 5 MG/100ML 5 MG/100 ML BAG IV ONE ×2 (14:40)
[2016-09-13] MEDS ORDERED: *HR* Ticagrelor 90 MG TABLET ONE (14:57)
--- NOTE | 2016-09-13 15:13 | Invasive Diagnostic Lab Proc ---
Name: Warren Champion Date of Study: 09/13/2016 Date: 1960 Ht: 68.1in Medical Record#: [id number] Age: 56 Wt: 205.03lb Gender: Male BSA: 2.07 Order #: [id number] BMI: 31.07 Physicians Procedure Physician: Bo Mak MD, [facility] Referring MD: Referring MD: Staff Name Position Time In Kalyani Aragon RT (R) Monitor 01:23 PM Miryam Reese RT Scrub 01:23 PM Freida Corcoran RN Pharmaceutical Physician 01:23 PM Indications Indication Non-Stemi Procedures Performed Procedure L HRT ARTERY/VENTRICLE ANGIO PRQ CARD DENG STENT W/ANGIO 1 VSL Pre-Procedure Checklist Informed consent is complete signed and on chart. H\T\P is on chart. ID band is on and ID verified with patient. Patient NPO for procedure The procedure was described for the patient and questions were answered. ECG is on chart. Plan of Care Patient will tolerate the procedure without complications. Adequate level of comfort will be maintained. Hemodynamics will remain stable Patient will recover from procedure without complications. Respiratory function will be maintained. Cardiac rhythm will remain stable. Patient temperature will be maintained. Patient and/or family have verbalized understanding of the procedure. Patient Education Chief Complaint/Reason for Test: Cardiac Cath Developmental Category: Geriatric (65+ years) Developmentally Appropriate for Age: Yes Learning Barriers: None Education Needs: Procedure Education Method: Verbal Information Taught: Cardiac Cath Educational Evaluation: Able to repeat information Allergies clindamycin Penicillins cephalexin sulfamethoxazole trimethoprim Vital Signs Time BP (mmHg) HR (bpm) O2 Sat. RR (bpm) LOC 01:21 PM 127 / 87 63 95 % 18 5 = Fully awake and oriented or at pre-proc level 02:09 PM / % 5 = Fully awake and oriented or at pre-proc level 02:09 PM / % 5 = Fully awake and oriented or at pre-proc level 02:24 PM 139 / 76 60 95 % 17 02:29 PM 88 / 46 64 87 % 16 02:31 PM 116 / 69 60 90 % 13 02:35 PM 120 / 69 68 89 % 13 02:39 PM 120 / 71 62 91 % 17 02:44 PM 127 / 72 60 94 % 12 02:49 PM 127 / 76 59 93 % 15 02:54 PM 118 / 64 57 92 % 16 02:59 PM 101 / 64 56 90 % 23 02:00 PM 133 / 72 57 94 % 7 02:04 PM 135 / 76 54 93 % 16 02:09 PM 142 / 75 55 92 % 13 02:14 PM 131 / 75 56 93 % 13 02:19 PM 125 / 79 54 92 % 17 Procedural Medications Time Medication Dose Units Method Given By 02:09 PM Oxygen 2 L/min nasal cannula Bethanie Diehl RN 02:22 PM Lidocaine 2% 0.5 ml Subcutaneous Bo Mak MD, FAC 02:24 PM Heparin 4000 units Nitroglycerin 200 mcg Verapamil 2.5 mg Intraarterial Bo Mak MD, FAC 02:28 PM Nitroglycerin 100 mcg Intracoronary Bo Mak MD 02:43 PM Aggrastat Bolus: 46 ml Intravenous Bethanie Diehl RN 02:43 PM Aggrastat 5mg/100ml 16.5 ml Intravenous Bethanie Diehl RN 02:44 PM Heparin 1000 units Intravenous Bethanie Diehl RN 02:52 PM Nitroglycerin 150 mcg Intracoronary Bo Mak MD 02:53 PM Versed 1 mg Intravenous Bethanie Diehl RN 02:53 PM Fentanyl 12.5 mcg Intravenous Bethanie Diehl RN 02:53 PM Fentanyl 12.5 mcg Intravenous Bethanie Diehl RN 02:54 PM Nitroglycerin 200 mcg IntracoronBo Yuen MD 02:56 PM Brilinta 180 mg Orally Bethanie Diehl RN ASA Classification: CLASS II- Mild systemic disease (i.e. well-controlled diabetes, hypertension, asthma, cigarette smoking) Grabiel Score Preprocedure Postprocedure Activity 2- Moves 4 extremities sustained head lift Activity 2- Moves 4 extremities sustained head lift Circulation 2- SBP +/= 20 points of pre-anesthetic level Circulation 2- SBP +/= 20 points of pre-anesthetic level Consciousness 2- Awake and alert oriented x 3 Consciousness 2- Awake and alert oriented x 3 O2 Saturation 2- Able to maintain O2 satruation of 92% on room air O2 Saturation 2- Able to maintain O2 satruation of 92% on room air Respiratory 2- Able to deep breathe and cough well Respiratory 2- Able to deep breathe and cough well Total Score 10 Total Score 10 Contrast Agent: Isovue Diagnostic Contrast: 134 ml Total Contrast: 134 ml Fluoro Dose: 546 mGy Procedure Log Time Note Enter By 01: PM Kalyani Aragon RT (R) Position: Monitor Time in: : PM Miryam Reese RT Position: Scrub Time in: PM Freida Corcoran RN Position: Pharmaceutical Physician Time in: :: PM Patient charges- Angio tray pack, Navilyst 3mm J, Pulse Oximetry and ACIST tubing and transducer PM IV Supplies used: J loop Angio Cath. :57 PM Physician arrived 13:57 58 PM ASA Class CLASS II- Mild systemic disease (i.e. well-controlled diabetes, hypertension, asthma, cigarette smoking) Meet and greet completed PM Sign in performed according to hospital policy. 58 PM Procedure start :58 58 PM Vitals capture started with the following parameters, Patient=Adult, Interval=5 min, Initial Cmzlwejk=505 mmHg, Deflation Rate=5 mmHg, Cuff placed on Right Arm :59 PM Case Start :59 PM CathStat 02:00 PM HR=57 bpm, NUZN=704/72 mmhg, SpO2=94.0 %, Resp=7 B/min, Comment=NSR 02:04 PM HR=54 bpm, RLAU=760/76 mmhg, SpO2=93 %, Resp=16 B/min 02:09 PM Time: 14:09 Oxygen on at 2 L/min per nasal cannula by Bethanie Diehl RN : PM Time: 14:09 Patient comfortable and pain free: Yes :09 PM HR=55 bpm, MBYH=353/75 mmhg, SpO2=92 %, Resp=13 B/min 02:09 PM Time: 14:09LOC: 5 = Fully awake and oriented or at pre-proc level 02:12 PM Hair removed from procedure site in procedure lab using clippers. Right wrist, right groin prepped with Chloraprep by Freida Corcoran RN, safety strap applied then patient was draped. Skin intact. 02:14 PM HR=56 bpm, OFEC=716/75 mmhg, SpO2=93.0 %, Resp=13 B/min, Comment=NSR 02:19 PM HR=54 bpm, ELHD=901/79 mmhg, SpO2=92.0 %, Resp=17 B/min, Comment=NSR 02:21 PM Clinical Presentation: Non-STEMI : PM Time out performed according to hospital policy : PM Time: 14:22 0.5 ml Lidocaine 2% to right radial Subcutaneous Given by Bo Mak MD, [facility] :23 PM Access obtained by percutaneous puncture. 5Fr 10cm Terumo Glidesheath sheath placed in right Radial artery. [id number] :24 PM Time: 14:24 Patient given 4,000 units Heparin, 200 mcg Nitroglycerin, and 2.5 mg Verapamil Intraarterial by Bo Mak MD, [facility] : PM HR=60 bpm, GZLZ=330/76 mmhg, SpO2=95.0 %, Resp=17 B/min, Comment=NSR PM Time: 14:09 Patient comfortable and pain free: Yes : PM 5Fr TIG catheter inserted over the wire [facility] PM Time: 14:09LOC: 5 = Fully awake and oriented or at pre-proc level : PM 0.035 260cm Navilyst 3mmJ wire [id number] 02: PM LCA angiography performed in multiple views. :27 PM Recorded Pressure: Ao, HR=60, Condition=Condition 1 (Aorta) Ao 96/66/80 02:28 PM RCA angiography performed in multiple views. PM Time: 14:28 Nitroglycerin 100 mcg Intracoronary Given by Bo Mak MD :29 PM Recorded Pressure: Ao, HR=65, Condition=Condition 1 (Aorta) Ao 76/55/65 02:29 PM HR=64 bpm, NIBP=88/46 mmhg, SpO2=87 %, Resp=16 B/min 02:30 PM NIBP STAT measurement started. 02:31 PM HR=60 bpm, HZYU=035/69 mmhg, SpO2=90.0 %, Resp=13 B/min, Comment=NSR 02:32 PM Catheter removed [email or web address] 02:32 PM 5Fr Pigtail catheter inserted over the wire [facility] dspellman 02:32 PM Catheter selectively placed in left ventricle [email or web address] 02:32 PM Bolus angiogram of left Ventricle complete: 10 ml/sec for a total of 30 mls [email or web address] 02:34 PM Recorded Pressure: LV, HR=58, Condition=Condition 1 (Left Ventricle) LV 114/8/11 02:34 PM Recorded Pressure: LV, HR=65, Condition=Condition 1 (Left Ventricle) LV 115/19/11 02:35 PM HR=68 bpm, XNWC=292/69 mmhg, SpO2=89.0 %, Resp=13 B/min, Comment=NSR 02:35 PM Recorded Pressure: LV, Ao, HR=47, Condition=Condition 1 (Left Ventricle) LV 91/1/33, (Aorta) Ao 101/58/76 02:36 PM Catheter removed [email or web address] 02:36 PM Coronary Dominance: Co-dominant dspellman 02:38 PM PCI Status Urgent tsites 02:38 PM PCI Indication: PCI for high risk Non-STEMI or unstable angina tsites 02:38 PM PCI lesion in Mid LAD. tsites 02:38 PM 6Fr RBL 3.5 Convey guide catheter was used to cannulate the PCI vessel successfully. reused? No tsites 02:39 PM .014 PT Graphix 182cm guide wire across target lesion- successful. reused? No tsites 02:39 PM Inflation device was opened. tsites 02:39 PM HR=62 bpm, GDCG=280/71 mmhg, SpO2=91.0 %, Resp=17 B/min 02:40 PM 2.5 mm x 20 mm Emerge Monorail balloon across target lesion- successful. reused? No tsites 02:41 PM Balloon inflated @ 12 alvina for 14 seconds tsites 02:42 PM Recorded Pressure: Ao, HR=62, Condition=Condition 1 (Aorta) Ao 110/71/88 02:42 PM Balloon inflated @ 12 alvina for 10 seconds tsites 02:43 PM Balloon inflated @ 12 alvina for 10 seconds tsites 02:43 PM Time: 14:43 Aggrastat Bolus: 46 ml Intravenous Given by Bethanie Deihl RN Aragon pump tsites 02:43 PM Time: 14:43 Aggrastat 5mg/100ml 16.5 ml Intravenous Given by [place], Bethanie RN Aragon pump tsites 02:44 PM Balloon catheter removed intact. tsites 02:44 PM HR=60 bpm, JCTJ=608/72 mmhg, SpO2=94 %, Resp=12 B/min 02:44 PM Time: 14:44 Heparin 1000 units Intravenous Given by Bethanie iDehl RN tsites 02:45 PM 3.5mm x 38mm Synergy drug-eluting stent across target lesion- successful Lot #[id number] tsites 02:46 PM Stent deployed @ 16 alvina for 20 seconds tsites 02:47 PM Stent delivery system removed intact. tsites 02:47 PM 3.75 mm x 20mm NC Trek Rx balloon across target lesion- successful. reused? No tsites 02:48 PM Lesion found in Mid RCA. Pre Stenosis: 60 Pre CINDY Flow: tsites 02:48 PM Lesion found in LMCA. Pre Stenosis: 30 Pre CINDY Flow: tsites 02:49 PM Lesion found in Mid LAD. Pre Stenosis: 90 Pre CINDY Flow: 2: Partial Flow/Perfusion (> 1 but < 3) tsites 02:49 PM Left Main Coronary Artery with 30% stenosis tsites 02:49 PM HR=59 bpm, PPBJ=496/76 mmhg, SpO2=93.0 %, Resp=15 B/min 02:49 PM Mid/Distal Left Anterior Descending Coronary Artery and diagonal branches with 90% stenosis. If graft is supplying this area, 0 % stenosis tsites 02:50 PM Right Coronary, Right Posterior Descending Arteries with Right Posterolateral and Acute Marginal branches with 60 % stenosis. If graft is supplying this area, 0 % stenosis tsites 02:50 PM Balloon inflated @ 8 alvina for 10 seconds tsites 02:51 PM Balloon inflated @ 8 alvina for 10 seconds tsites 02:51 PM Balloon inflated @ 18 alvina for 9 seconds tsites 02:52 PM Time: 14:52 Nitroglycerin 150 mcg Intracoronary Given by Bo Mak MD tsites 02:52 PM Recorded Pressure: Ao, HR=58, Condition=Condition 1 (Aorta) Ao 113/71/88 02:53 PM Time: 14:53 Versed 1 mg Intravenous Given by Bethanie Diehl RN tsites 02:53 PM Time: 14:53 Fentanyl 12.5 mcg Intravenous Given by Bethanie Diehl RN tsites 02:54 PM Time: 14:53 Fentanyl 12.5 mcg Intravenous Given by Bethanie Diehl RN tsites 02:54 PM Time: 14:54 Nitroglycerin 200 mcg Intracoronary Given by Bo Mak MD tsites 02:54 PM HR=57 bpm, WZMF=267/64 mmhg, SpO2=92 %, Resp=16 B/min 02:55 PM Guide wire removed intact. tsites 02:55 PM Balloon catheter removed intact. tsites 02:56 PM Guide catheter removed intact. tsites 02:57 PM Time: 14:56 Brilinta 180 mg Orally Given by Bethanie Diehl RN tsites 02:57 PM Procedure completed at 14:57 tsites 02:57 PM Sign out completed: Radiation Dose 546 mGy Fluoro Time: 8.4 Isovue 370 - 200ml contrast 134 ml given by Bo Mak MD, [facility]. Complications: NoneCardiac Rehab Consult needed: YesConfirmed administered medications: Yes tsites 02:58 PM Isovue 370 - 200ml,1 Bottle(s) used. tsites 02:58 PM Arterial sheath pulled, Vasc Band closure device used and was Successful S/N. tsites 02:58 PM 9 ml air in Vasc Band. tsites 02:58 PM Post ECG NSR tsites 02:58 PM Post Blood Pressure 116/64 tsites 02:58 PM 14:58 Post Pulses Rt Radial 2+ tsites 02:58 PM Information taught Cardiac Cath, PCI, and Vasc Band tsites 02:58 PM Education needs Procedure, Plan of Care, and Responsibilities of Patient in Care tsites 02:58 PM Learning barriers :None tsites 02:58 PM Education Methods Verbal tsites 02:58 PM Education evaluation Able to repeat information tsites 02:59 PM Site status No bleeding/hematoma - Rt Wrist as reported by Miryam Reese RT at 14:58 tsites 02:59 PM HR=56 bpm, SNWQ=864/64 mmhg, SpO2=90 %, Resp=23 B/min 03:02 PM Plavix, Effient or Brilinta given Yes tsites 03:02 PM Delay to floor No tsites 03:02 PM Patient out of room: 15:02 tsites 03:02 PM Family placed in consult room. tsites 03:03 PM Report given to racheal ADEN Pt taken to 3B Room #14. 15:03 tsites Complications Complication None Hemodynamics Pressures Site Systolic/A Wave Diastolic/V Wave Mean AO 96 66 80 AO 76 55 65 LV 114 8 11 LV 115 19 11 LV 91 1 33 AO 101 58 76 AO 110 71 88 AO 113 71 88 Post Procedure Information Blood Pressure: 116/64 mmHg Rhythm: NSR Post procedural instructions were given Closure Device Time Device Success/Fail 09/13/2016 3:04:00 PM Mechanical Compression Successful Site Checks Time Location Status Staff Sheath In? Note 02:58 PM Rt Wrist No bleeding/hematoma Miryam Reese RT Pulses Time Site Pre-Procedure Post-Procedure Note 09/13/2016 1:21:00 PM Bilateral DP \T\ PT 1+ 09/13/2016 1:21:00 PM Bilateral radial 2+ 2:58:00 PM Rt Radial 2+ Updated by [facility], RT (R) on 09/13/2016 3:07:55 PM [facility], RT electronically signed on 09/13/2016 3:09:00 PM with status of Final
[2016-09-13] MEDS ORDERED: Tirofiban 12.5 MG/250ML 12.5 MG/250 ML BAG IVC SCH (15:30)
[2016-09-13] MEDS: *HR* Ticagrelor 90 MG TABLET PO SCH (20:02)
[2016-09-13] MEDS: Mirtazapine 15 MG TABLET PO SCH (20:02)
[2016-09-14] MEDS: *HR* Ticagrelor 90 MG TABLET PO SCH (07:50)
[2016-09-14] MEDS: *HR* OxyCODONE/APAP 5/325 TABLET PO PRN (07:50)
[2016-09-14] MEDS: ALPRAZolam 1 MG TABLET PO SCH ×2 (07:50→12:09)
[2016-09-14] MEDS: Aspirin 81 MG TAB.CHEW PO SCH (07:51)
[2016-09-14] MEDS: Simethicone 80 MG TAB.CHEW PO SCH (07:51)
[2016-09-14 08:34] LABS: Basophils % 0.3 %; Eosinophils # 0.1 K/mcL (0.0-0.6); Eosinophils % 1.8 %; Hematocrit 39.6 % (37.5-50.1); Hemoglobin 12.7 g/dL (12.9-16.9); Immature Granulocytes % 0.3 % (0-4); Lymphocytes # 1.1 K/mcL (0.6-4.6); Lymphocytes % 13.6 %; Mean Corpuscular HGB Conc 32.1 g/dL (31.6-35.5); Mean Corpuscular Hemoglobin 29.4 pg (28.0-33.3); Mean Corpuscular Volume 91.7 fL (83.0-100.0); Mean Platelet Volume 11.9 fL (9.4-12.4); Monocytes # 0.6 K/mcL (0.0-1.3); Monocytes % 7.4 %; Neutrophils # 5.9 K/mcL (1.6-8.9); Platelet Count 142 K/mcL (140-400); Red Blood Count 4.32 M/mcL (4.19-5.50); Red Cell Distribution Width 14.3 % (11.5-14.5); Segmented Neutrophils % 76.6 %
[2016-09-14 08:42] LABS: BUN/Creatinine Ratio 19 (6-26); Blood Urea Nitrogen 17 mg/dL (8-26); Calcium 8.7 mg/dL (8.6-10.8); Carbon Dioxide 21 mEq/L (19-29); Chloride 113 mEq/L (98-109); Glucose 95 mg/dL (70-99); Osmolality,Calculated 293 (280-300); Potassium 4.1 mEq/L (3.5-4.5); Sodium 141 mEq/L (136-145); eGFR For African Americans > 60 (> 60); eGFR For Non-African Americans > 60 (> 60)
--- NOTE | 2016-09-14 09:24 | Invasive Diagnostic Lab ---
Name: Warren Champion Date of Study: 09/13/2016 Date: 1960 Ht: 172.7 cm /68.1 in Medical Record#: [id number] Age: 56 Wt: 93.2 kg / 205.03 lb Account/Order#: [id number] Gender: Male BSA: 2.07 Order #: [id number] Fluoro Dose: 546 mGy BMI: 31.07 Procedure Physician: Bo Mak MD, [facility] Referring MD: Referring MD: Procedures Performed: LEFT HEART CATH Stent w/ PTCA Single Major Vessel Indications: Non-Stemi Impressions: There is severe one vessel coronary artery disease. The left ventricle is normal and has normal contractility EF 50% Patient had successful PTCA/Drug-Eluting Stent placement in the mid LAD. Recommendations: Optimal medical therapy of patient's disease. Aggressive risk factor modification. Patient being referred for cardiac rehab. History/Risk Factors: chest pain asthma mitral valve repair Hypertension Dyslipidemia Family History of CAD Chronic Lung Disease Procedure Access obtained in the right Radial artery by percutaneous puncture Patient had successful PTCA/Drug-Eluting Stent placement in the mid LAD. Complications: None Contrast: Isovue 134ml Closure Device: Mechanical Compression Hemodynamics: Pressures Site Systolic/ A Wave Diastolic/ V Wave End Diastolic/ Mean HR AO 96 66 80 60 AO 76 55 65 65 LV 114 8 11 58 LV 115 19 11 65 LV 91 1 33 41 AO 101 58 76 65 AO 110 71 88 62 AO 113 71 88 58 LV Ventriculography Ejection Method: LV Gram Ejection Fraction: 50% Wall Motion: ROMAN Anterobasal Normal Anterolateral Normal Apical: Normal Inferoapical Normal Inferobasal Normal Coronary Dominance: Co-dominant Lesion Findings/Interventions * Left Main Coronary Artery There is a 30% stenosis in the LMCA. * Left Anterior Descending There is a 38 mm long, 90% stenosis in the Mid LAD. The lesion has a CINDY flow of 2 and has no thrombus present. An intervention was performed on the Mid LAD with a final stenosis of 0%. There were no lesion complications. The final CINDY flow was 3. * Circumflex The Circumflex has 30% stenosis The 1st Marginal has 50% stenosis The Left PDA is subtotally occluded in the midportion * Right Coronary Artery There is a 50-60% stenosis in the Mid RCA. R PDA with mild disease - Additional Findings: Grafts * The left internal mammary graft to the is occluded. Interventional Device(s) Vessel Segment Type Name Diameter (mm) Length (mm) Mid LAD Balloon Emerge Monorail 2.5 20 Mid LAD Drug Eluting Stent Synergy 3.5 38 Mid LAD Balloon NC Trek Rx 3.75 20 Updated by Kim Maciel RT (R) on 09/13/2016 3:09:04 PM Bo Mak MD, [facility] electronically signed on 09/14/2016 9:18:56 AM with status of Final
--- NOTE | 2016-09-14 10:07 | Cardiology Progress Note ---
Date of Encounter: 09/14/16 Time of Encounter: 10:04 Assessment and Plan (1) Coronary artery disease Current Visit: No Status: Chronic Hx of CABG and PCI. S/P [facility] yesterday with severe 1 vessel CAD, successful PTCA/DENG to mid LAD. 30% LMCA stenosis, 50-60% mid RCA stenosis. Known occluded TILLMAN-LAD. Pt denies chest pain, reports continued intermittent epigastric pain. Recommend DAPT (ASA and Brilinta) uninterrupted x 1 year. Pt verbalizes understanding. Continue Statin. AVG HR overnight 65, add low dose BB. Echo EF 55-60%. Right radial access site healing well. No bleeding, hematoma or ecchymosis noted. Cardiology signing off. Reconsult PRN. Follow-up as outpt in 3-4 weeks. Will coordinate. Qualifiers: Coronary Disease-Associated Artery/Lesion type: [place] artery [place] vs. transplanted heart: [place] heart Associated angina: with unstable angina Qualified Code(s): I25.110 - Atherosclerotic heart disease of [place] coronary artery with unstable angina pectoris (2) H/O mitral valve repair Current Visit: Yes Status: Chronic Hx of mitral valve ring annuloplasty. TOI 08/19/16 at [facility]. Mild-moderate mitral valve regurgitation and mild stenosis. Echo 09/13/16 EF 55-60%, borderline mild MS. Discussion w patient/family: The assessment and plan as outlined above was discussed with the patient and/or family members who expressed understanding and agreement. All questions were answered. Thank you for involving us in the care of your patient. Please call with any questions. I will discuss all the above with Dr. Esteban and make changes as necessary. Subjective Principal diagnosis: CAD Interval history: S/p [facility] yesterday--revealed severe 1 vessel CAD, EF 50%. Successful PTCA/DENG to mid LAD. Echo EF 55-60%, mild concentric LVH, s/p mitral valve repair, borderline mild MS, trace MR, mild-moderate phtn est RVSP 46mmHg. Pt denies chest pain overnight, but reports intermittent epigastric pain continues. Objective Vital Signs, Last 4 Hours Temp Pulse Resp BP Pulse Ox 09/14/16 08:18 97.5 F L 68 16 137/81 96 Vital Signs Temp Pulse Resp BP Pulse Ox 09/14/16 08:18 97.5 F L 68 16 137/81 96 09/14/16 04:15 97.5 F L 70 16 109/60 98 09/13/16 23:22 98.3 F 63 16 129/74 96 09/13/16 18:49 97.4 F L 56 15 142/88 96 09/13/16 18:00 60 15 122/78 97 09/13/16 17:00 97.7 F 58 18 121/80 95 09/13/16 16:30 63 18 124/85 95 09/13/16 16:00 57 14 138/85 97 09/13/16 15:45 59 14 131/76 95 09/13/16 15:30 55 14 135/86 94 09/13/16 15:15 97.7 F 58 12 118/71 92 09/13/16 11:40 97.6 F 63 18 127/87 95 Intake and Output 09/13/16 09/14/16 09/14/16 23:59 07:59 15:59 Intake Total 250 / 250 Balance 250 / 250 Intake: IV Fluids 250 / 250 Aggrastat 12.5 MG/250 ML 250 / 250 12.5 mg In 250 ml @ 0.15 MCG/KG/MIN 16.729 mls/hr IVC .[id number] [facility] Rx#: [id number] Other: Weight 91.172 kg Patient Weight 09/14/16 23:59 Weight 91.172 kg General: Conversant HEENT: Atraumatic, Normocephaly, Mucus Membranes Moist Neck: No JVD, Normal carotid pulses Cardiac: Reg Rate and Rhythm, Normal S1 and S2, No Murmur Lungs: Normal Breath Sounds, No Wheeze, Rales, Rhonchi Neuro: Alert and responsive, No focal deficits noted Abdomen: Soft, Non-Tender Skin: Other (right radial access site healing well. No bleeding, hematoma or ecchymosis noted.) Musculoskeletal: No Chest Wall Tenderness Extremities: No Clubbing, No Cyanosis, No Edema, Normal Pulses Results 09/14/16 08:22 09/14/16 08:22 Lab Results 09/14/16 09/14/16 08:22 08:22 WBC 7.7 Hgb 12.7 L Hct 39.6 Plt Count 142 Sodium 141 Potassium 4.1 Chloride 113 H Carbon Dioxide 21 BUN 17 Creatinine 0.88 Glucose 95 Calcium 8.7 Short CBC 09/14/16 Range/Units 08:22 WBC 7.7 (4.3-11.1) K/mcL Hgb 12.7 L (12.9-16.9) g/dL Hct 39.6 (37.5-50.1) % Plt Count 142 (140-400) K/mcL Neutrophils # 5.9 (1.6-8.9) K/mcL BMP 09/14/16 Range/Units 08:22 Sodium 141 (136-145) mEq/L Potassium 4.1 (3.5-4.5) mEq/L Chloride 113 H (98-109) mEq/L Carbon Dioxide 21 (19-29) mEq/L BUN 17 (8-26) mg/dL Creatinine 0.88 (0.72-1.25) mg/dL Glucose 95 (70-99) mg/dL Calcium 8.7 (8.6-10.8) mg/dL Active Medications Albuterol Sulfate (Albuterol Inhaler) 2 puff IH Q6HR PRN PRN Reason: Allergy Symptoms Stop: 03/14/17 11:41 Alprazolam (Xanax) 1 mg PO QID [facility] PRN Reason: Protocol Stop: 03/14/17 13:01 Last Admin: 09/14/16 07:50 Dose: 1 mg Aspirin (Aspirin) 81 mg PO DAILY [facility] Stop: 03/15/17 09:01 Last Admin: 09/14/16 07:51 Dose: 81 mg Atorvastatin Calcium (Lipitor) 40 mg PO DAILY [facility] Stop: 03/15/17 09:01 Last Admin: 09/14/16 07:51 Dose: 40 mg Dicyclomine HCl (Bentyl) 20 mg PO QID [facility] Stop: 03/14/17 13:01 Last Admin: 09/14/16 07:51 Dose: 20 mg Mirtazapine (Remeron) 15 mg PO HS [facility] Stop: 03/14/17 21:01 Last Admin: 09/13/16 20:02 Dose: 15 mg Naloxone HCl (Narcan) 0.4 mg IVP Q2MIN PRN PRN Reason: Opioid Reversal Stop: 03/14/17 11:39 Nitroglycerin (Nitroglycerin) 0.4 mg SL Q5MIN PRN PRN Reason: Chest Pain Stop: 03/14/17 11:41 Omeprazole (Prilosec) 20 mg PO DAILY [facility] Stop: 03/15/17 09:01 Last Admin: 09/14/16 07:51 Dose: 20 mg Oxycodone/Acetaminophen (Percocet 5/325) 1 each PO Q6HR PRN PRN Reason: Pain Stop: 03/14/17 11:41 Last Admin: 09/14/16 07:50 Dose: 1 each Pharmacy Profile Note (Patient Taking Own Medication) 0 each PO DAILY [facility] Stop: 03/15/17 09:01 Last Admin: 09/14/16 07:51 Dose: Not Given Simethicone (Gas-X) 80 mg PO TID [facility] Stop: 03/14/17 15:01 Last Admin: 09/14/16 07:51 Dose: 80 mg Ticagrelor (Brilinta) 90 mg PO BID [facility] Stop: 03/15/17 21:01 Last Admin: 09/14/16 07:50 Dose: 90 mg - Imaging and Cardiology Echo: report reviewed Cardiac cath: report reviewed - EKG Interpretation EKG results cardiology: other (24 hour tele AVG HR 65, no significant pauses or arrhythmias noted.) Consult Discharge Plan - Plan Additional Instructions: RISK FACTORS: STOP SMOKING: If you smoke, STOP. Smoking or tobacco use significantly increases your risk of heart disease because nicotine causes the arteries to narrow or constrict. It also causes fats to stick to the artery. Your chances of having a heart attack are greatly increased if you continue to smoke. For more information, call the education line for smoking cessation 8-198-LRFEZGX EAT A LOW FAT/CHOLESTEROL/SODIUM DIET: This diet may help reduce your chances of having a heart attack. LIFTING: With affected extremity: Avoid bending, pushing off and lifting more than 2 pounds for 24 hours The following 48 hours, avoid lifting anything more than 5 pounds Avoid strenuous activity or repetitive motions ACTIVITY: You may walk or climb stairs as tolerated You can resume sexual activity as tolerated In general, you are encouraged to engage in a minimum of 30 minutes or more of moderate intensity physical activity, such as brisk walking, daily or at least 3 -4 times weekly BATHING Do not submerge the site into water (bath tub, hot tub, swimming pool, dishes) for 1 week. This can be a source for infection into the blood stream. You may shower after 24 hours SITE CARE: After 24 hours, you may remove the dressing and leave the site open to air. Keep the site clean and dry. Clean gently and pat dry. You can expect bruising and tenderness that gradually resolve within a week or two. Return to work as instructed per your physician Resume driving as instructed per physician Keep all scheduled follow up appointments Resume medications as instructed IMPORTANT: If prescribed a Platelet Aggregation Inhibitor such as, Plavix, Brilinta or Effient: Duration of therapy is minimum one year These medications are often used in combination with Aspirin in prevention of future heart attacks Never discontinue unless consult with your Engagement Manager STROKE (CVA) Risk factors for a stroke are: Age, cigarette smoking, diabetes, excessive alcohol consumption, family history, high blood pressure, overweight, physical inactivity, prior stroke, heart attack, diagnosis of carotid artery stenosis or other artery disease. Warning signs: Sudden numbness or weakness of the face, arm or leg; especially on one side of the body, sudden confusion, trouble speaking or understanding, sudden trouble seeing in one or both eyes, sudden trouble walking, dizziness, loss of balance or coordination, sudden severe headache with no cause. Call 911 or go to the Emergency Room. CONGESTIVE HEART FAILURE: If you have been diagnosed with Congestive Heart Failure (CHF) and your symptoms return, make an appointment with your physician Weigh yourself daily. Notify your physician if you have a weight gain of two or more pounds in one day or five or more pounds in one week. If you experience any difficulty breathing, please call 911 BLEEDING: Although the risk of bleeding is minimal, it can happen. If you have any bleeding from the site, apply firm pressure above the puncture site for 10-15 minutes. If the bleeding does not stop, continue manual pressure and call 911 Contact [facility] ( ) if: You develop a fever greater than 101 degrees Fahrenheit Your site becomes reddened or has any drainage You have an increase in pain or burning at the site or if a large knot forms at the site. If you experience chest pain, shortness of breath, dizziness, or extreme tiredness, stop the activity and rest. Please notify [facility] office if you experience any of these symptoms and they are not relieved by rest please call 911! Referrals: Graham Holden MD [Primary Care Provider] -
[2016-09-14] MEDS ORDERED: Metoprolol XL (24 HR) Succ 25 MG TAB.ER.24H PO SCH (10:15)
[2016-09-14 11:24] VITALS: BP 130/86
--- NOTE | 2016-09-14 12:07 | Discharge Summary ---
Date of Encounter: 09/14/16 Time of Encounter: 12:05 - Discharge Diagnosis (1) Coronary artery disease Priority: Secondary Status: Chronic Qualifiers: Coronary Disease-Associated Artery/Lesion type: [place] artery [place] vs. transplanted heart: [place] heart Associated angina: with unstable angina Qualified Code(s): I25.110 - Atherosclerotic heart disease of [place] coronary artery with unstable angina pectoris (2) Hyperlipidemia Priority: Secondary Status: Chronic Qualifiers: Hyperlipidemia type: unspecified Qualified Code(s): E78.5 - Hyperlipidemia , unspecified (3) HTN (hypertension) Priority: Secondary Status: Chronic Qualifiers: Hypertension type: essential hypertension Qualified Code(s): I10 - Essential (primary) hypertension (4) COPD (chronic obstructive pulmonary disease) Priority: Secondary Status: Chronic Qualifiers: COPD type: unspecified COPD Qualified Code(s): J44.9 - Chronic obstructive pulmonary disease, unspecified (5) Chest pain Priority: Primary Status: Acute Qualifiers: Chest pain type: unspecified Qualified Code(s): R07.9 - Chest pain, unspecified (6) H/O mitral valve repair Priority: Secondary Status: Chronic - Discharge Medications Prescriptions: Metoprolol XL (24 HR) Succ [Toprol Xl] 12.5 mg PO DAILY #30 tab.er.24h Ticagrelor [Brilinta] 90 mg PO BID #60 tablet Home Medications: ALPRAZolam [Xanax 1 MG Tablet] 1 mg PO QID 06/29/15 [History] Albuterol Sulfate [Albuterol Inhaler] 1 - 2 puff IH Q6HR PRN 06/29/15 [History] Atorvastatin [Lipitor] 40 mg PO DAILY 06/29/15 [History] Mirabegron [Myrbetriq] 50 mg PO DAILY 06/29/15 [History] Nitroglycerin [Nitrostat] 0.4 mg SL PRN PRN 08/19/15 [History] Dicyclomine [Bentyl] 20 mg PO QID #56 capsule 12/29/15 [Rx] Simethicone [Gas-X] 80 mg PO TID #21 tab.chew 12/29/15 [Rx] Aspirin 81 mg PO DAILY 09/12/16 [History] Mirtazapine [Remeron] 15 mg PO HS 09/12/16 [History] OxyCODONE/APAP 5/325 [Percocet 5/325 MG] 1 tab PO Q6HR PRN 09/12/16 [History] Pantoprazole Sodium [Protonix] 20 mg PO DAILY 09/12/16 [History] Metoprolol XL (24 HR) Succ [Toprol Xl] 12.5 mg PO DAILY #30 tab.er.24h 09/14/16 [Rx] Ticagrelor [Brilinta] 90 mg PO BID #60 tablet 09/14/16 [Rx] Allergies/Adverse Reactions: Allergies cephalexin [From Keflex] Allergy (Verified 12/25/15 11:12) Hives ciprofloxacin [From Cipro] Allergy (Verified 12/25/15 11:12) Hives clindamycin Allergy (Verified 12/24/15 19:52) Rash meperidine [From Demerol] Allergy (Verified 12/24/15 19:52) Rash Penicillins Allergy (Verified 12/24/15 19:52) Rash sulfamethoxazole [From Bactrim] Allergy (Verified 12/24/15 19:52) Rash trimethoprim [From Bactrim] Allergy (Verified 12/24/15 19:52) Rash bupropion Adverse Reaction (Verified 12/24/15 19:52) Dizziness Procedures/tests Complete & Pending: Procedures Performed prior 72 hours Category Date Time Status CL Cardiac Catheterization [CL] Routine Housekeeping/Laundry Supervisor 09/13/16 12:11 Completed ECG 12 lead ECG [ECG] Routine Y 09/13/16 15:17 Ordered EV echocardiogram Routine Y 09/13/16 08:34 Completed Date of admission: 09/12/16 13:58 Primary care physician: Graham Holden MD Consults: 09/12/16 14:17 Consult to Cardiology [CONS] Routine Comment: Consulting Provider: Cardiology Elena Reason for Consult: CP Time Notified: 14:17 Call Completed: Yes 09/14/16 11:51 Consult to Cardiac Rehabilitation-Phase1 [CONS] Routine Comment: Reason for Consult: CAD s/p PCI Call Completed: No Discharging clinician: Rogelio Castro Anticipated date of discharge: 09/14/16 - Patient Status Disposition: Home, Self-Care Condition: Fair Functional capacity at discharge: independent ambulation Overall status at discharge: patient is back to baseline - Discharge Instructions Instructions: Chest Pain (DC), Chronic Hypertension (DC), Hyperlipidemia (DC) Follow Up With: Graham Holden MD [Primary Care Provider] - Additional Instructions: RISK FACTORS: STOP SMOKING: If you smoke, STOP. Smoking or tobacco use significantly increases your risk of heart disease because nicotine causes the arteries to narrow or constrict. It also causes fats to stick to the artery. Your chances of having a heart attack are greatly increased if you continue to smoke. For more information, call the education line for smoking cessation 8-464-ELBRCTW EAT A LOW FAT/CHOLESTEROL/SODIUM DIET: This diet may help reduce your chances of having a heart attack. LIFTING: With affected extremity: Avoid bending, pushing off and lifting more than 2 pounds for 24 hours The following 48 hours, avoid lifting anything more than 5 pounds Avoid strenuous activity or repetitive motions ACTIVITY: You may walk or climb stairs as tolerated You can resume sexual activity as tolerated In general, you are encouraged to engage in a minimum of 30 minutes or more of moderate intensity physical activity, such as brisk walking, daily or at least 3 -4 times weekly BATHING Do not submerge the site into water (bath tub, hot tub, swimming pool, dishes) for 1 week. This can be a source for infection into the blood stream. You may shower after 24 hours SITE CARE: After 24 hours, you may remove the dressing and leave the site open to air. Keep the site clean and dry. Clean gently and pat dry. You can expect bruising and tenderness that gradually resolve within a week or two. Return to work as instructed per your physician Resume driving as instructed per physician Keep all scheduled follow up appointments Resume medications as instructed IMPORTANT: If prescribed a Platelet Aggregation Inhibitor such as, Plavix, Brilinta or Effient: Duration of therapy is minimum one year These medications are often used in combination with Aspirin in prevention of future heart attacks Never discontinue unless consult with your Copy Center Associate STROKE (CVA) Risk factors for a stroke are: Age, cigarette smoking, diabetes, excessive alcohol consumption, family history, high blood pressure, overweight, physical inactivity, prior stroke, heart attack, diagnosis of carotid artery stenosis or other artery disease. Warning signs: Sudden numbness or weakness of the face, arm or leg; especially on one side of the body, sudden confusion, trouble speaking or understanding, sudden trouble seeing in one or both eyes, sudden trouble walking, dizziness, loss of balance or coordination, sudden severe headache with no cause. Call 911 or go to the Emergency Room. CONGESTIVE HEART FAILURE: If you have been diagnosed with Congestive Heart Failure (CHF) and your symptoms return, make an appointment with your physician Weigh yourself daily. Notify your physician if you have a weight gain of two or more pounds in one day or five or more pounds in one week. If you experience any difficulty breathing, please call 911 BLEEDING: Although the risk of bleeding is minimal, it can happen. If you have any bleeding from the site, apply firm pressure above the puncture site for 10-15 minutes. If the bleeding does not stop, continue manual pressure and call 911 Contact [facility] ( ) if: You develop a fever greater than 101 degrees Fahrenheit Your site becomes reddened or has any drainage You have an increase in pain or burning at the site or if a large knot forms at the site. If you experience chest pain, shortness of breath, dizziness, or extreme tiredness, stop the activity and rest. Please notify [facility] office if you experience any of these symptoms and they are not relieved by rest please call 911! - Diet and Activity Activity: resume usual activities as tolerated Interval History: See below Hospital course: Mr. Champion is a 56 year old male with PMH of CADs/p CABG/PCI in the past, s/p MVR , HLD, CVA He presented with typical chest pain suspicious for unstable anigna Work up on admission reveals EKG with non-specific T wave changes, and elevated troponin Patient is S/P [facility] 09/13/16 with severe 1 vessel CAD, successful PTCA/DENG to mid LAD. 30% LMCA stenosis, 50-60% mid RCA stenosis. Known occluded TILLMAN-LAD. Echo done 09/13/16 EF 55-60%, borderline mild MS. Patient is seen at bedside this morning, asymptomatic in no form of distress He is stable for discharge home on ASA, Brilinta, Metoprolol. Continue other home meds, including Statin Extensive education on lifestyle modification - Time Spent with Patient Total time spent providing and/or coordinating discharge services: Less than 30 minutes - Constitutional Vitals: Temp Pulse Resp BP Pulse Ox 97.6 F 68 16 130/86 95 09/14/16 11:21 09/14/16 11:21 09/14/16 11:21 09/14/16 11:21 09/14/16 11:21 General appearance: Present: A&O X 3, no acute distress, answers questions appropriately - Head Head exam: Present: atraumatic, normocephalic - Eye Eye exam: Present: PERRL, conjuntiva pink, sclera anicteric Pupils: Present: PERRL - Neck Neck exam general surgery: Present: supple, trachea midline. Absent: lymphadenopathy - Respiratory Respiratory exam: Present: CTAB. Absent: accessory muscle use, rales, rhonchi, wheezes - Cardiovascular Cardiovascular exam: Present: RRR, +S1, +S2. Absent: diastolic murmur, gallop, rubs, systolic murmur - GI/Abdominal GI/Abdominal exam: Present: normal bowel sounds, soft, no peritoneal signs. Absent: distended, tenderness - Extremities Exam Extremities exam: Present: warm, radial pulses palpable and symetrical. Absent : calf tenderness, cyanotic, pedal edema Additional comments: R wrist no swelling, pulse present - Neurological Exam Neurological exam: Present: alert, CN II-XII intact, oriented X3, no focal deficits. Absent: pronater drift, facial droop, speech deficit - Skin Skin exam: Present: dry, intact
== END 2016-09-14 13:15 | disposition home or self-care (01) ==
LOC: EMEROO 08:32 → 3BNU 08:32
PROVIDERS: ADMIT Nurse Practitioner Acute Care; ATTEND Nurse Practitioner Family

== ENCOUNTER 2016-10-01 19:37 | Inpatient (IN) ==
[2016-10-01 20:36] LABS: Basophils % 0.3 %; Eosinophils # 0.1 K/mcL (0.0-0.6); Eosinophils % 1.8 %; Hematocrit 37.4 % (37.5-50.1); Hemoglobin 12.3 g/dL (12.9-16.9); Immature Granulocytes % 0.3 % (0-4); Lymphocytes # 1.4 K/mcL (0.6-4.6); Lymphocytes % 21.3 %; Mean Corpuscular HGB Conc 32.9 g/dL (31.6-35.5); Mean Corpuscular Hemoglobin 29.9 pg (28.0-33.3); Mean Corpuscular Volume 90.8 fL (83.0-100.0); Mean Platelet Volume 11.6 fL (9.4-12.4); Monocytes # 0.6 K/mcL (0.0-1.3); Monocytes % 8.3 %; Neutrophils # 4.6 K/mcL (1.6-8.9); Platelet Count 174 K/mcL (140-400); Red Blood Count 4.12 M/mcL (4.19-5.50); Red Cell Distribution Width 14.5 % (11.5-14.5)
[2016-10-01 20:44] LABS: INR 1.1; Prothrombin Time 11.4 Seconds (9.4-12.1)
[2016-10-01 20:47] LABS: Activated Partial Thrombo Time 29.3 Seconds (26.0-36.0)
[2016-10-01 20:51] LABS: Alanine Aminotransferase 23 Units/L (0-55); Albumin 3.7 g/dL (3.5-5.0); Alkaline Phosphatase 122 Units/L (38-126); Aspartate Amino Transferase 26 Units/L (5-34); BUN/Creatinine Ratio 14 (6-26); Bilirubin,Direct 0.2 mg/dL (0.0-0.5); Bilirubin,Indirect 0.3 mg/dL (0.0-1.2); Bilirubin,Total 0.5 mg/dL (0.2-1.2); Blood Urea Nitrogen 15 mg/dL (8-26); Calcium 9.2 mg/dL (8.6-10.8); Carbon Dioxide 18 mEq/L (19-29); Chloride 112 mEq/L (98-109); Globulin 3.6 g/dL (2.4-3.5); Glucose 115 mg/dL (70-99); Lipase 47 Units/L (8-78); Osmolality,Calculated 294 (280-300); Potassium 3.9 mEq/L (3.5-4.5); Sodium 141 mEq/L (136-145); Total Protein 7.3 g/dL (6.0-8.3); eGFR For African Americans > 60 (> 60); eGFR For Non-African Americans > 60 (> 60)
--- NOTE | 2016-10-01 21:08 | Emergency Department Note ---
Disposition Clinical Impression: Epigastric pain, Angina at rest, Elevated troponin Disposition: Admitted As Inpatient Condition: Good General Adult HPI - General Chief complaint: ED Shortness of Breath/Dyspnea Stated complaint: BERT CONTRERAS Time Seen by Provider: 10/01/16 19:59 Source: patient Nursing Notes Reviewed: Yes Vital Signs Reviewed: Yes - History of Present Illness HPI Narrative: 56-year-old male presents to the ED with the chief complaint of epigastric pain. This has been going on intermittently for several months. He reports sharp epigastric pain and distention of the abdomen, he reports pain radiating into the back at times. He denies any chest pain however he reports some shortness of breath as if his abdomen is pushing up on his lungs. He was recently in the hospital due to similar epigastric pain and symptoms They decided to perform a heart catheterization and a stent was placed. 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 He denies any history of blood clots or DVTs. He denies any numbness or weakness in the extremities however he reports pain in both of his legs with walking and has history of peripheral arterial disease. He has not smoked in 2 years. He has had pancreatitis in the past with a previous cholecystectomy. Denies any black or bloody stools. Denies any hematemesis. He has had this pain for quite some time and undergone testing such as abdomen MRI, abdomen CT, gastric emptying test and upper endoscopy which were all normal. Pain Scale: 9 - Related Data Home Medications Medication Instructions Recorded Confirmed ALPRAZolam [Xanax 1 MG Tablet] 1 mg PO QID 06/29/15 09/12/16 Albuterol Sulfate [Albuterol 1 - 2 puff IH Q6HR PRN 06/29/15 09/12/16 Inhaler] Atorvastatin [Lipitor] 40 mg PO DAILY 06/29/15 09/12/16 Mirabegron [Myrbetriq] 50 mg PO DAILY 06/29/15 09/12/16 Nitroglycerin [Nitrostat] 0.4 mg SL PRN PRN 08/19/15 09/12/16 Aspirin 81 mg PO DAILY 09/12/16 09/12/16 Mirtazapine [Remeron] 15 mg PO HS 09/12/16 09/12/16 OxyCODONE/APAP 5/325 [Percocet 1 tab PO Q6HR PRN 09/12/16 09/12/16 5/325 MG] Pantoprazole Sodium [Protonix] 20 mg PO DAILY 09/12/16 09/12/16 Previous Rx's Medication Instructions Recorded Dicyclomine [Bentyl] 20 mg PO QID #56 capsule 12/29/15 Simethicone [Gas-X] 80 mg PO TID #21 tab.chew 12/29/15 Metoprolol XL (24 HR) Succ [Toprol 12.5 mg PO DAILY #30 tab.er.24h 09/14/16 Xl] Ticagrelor [Brilinta] 90 mg PO BID #60 tablet 09/14/16 Allergies Allergy/AdvReac Type Severity Reaction Status Date / Time cephalexin [From Keflex] Allergy Hives Verified 12/25/15 11:12 ciprofloxacin [From Cipro] Allergy Hives Verified 12/25/15 11:12 clindamycin Allergy Rash Verified 12/24/15 19:52 meperidine [From Demerol] Allergy Rash Verified 12/24/15 19:52 Penicillins Allergy Rash Verified 12/24/15 19:52 sulfamethoxazole Allergy Rash Verified 12/24/15 19:52 [From Bactrim] trimethoprim [From Bactrim] Allergy Rash Verified 12/24/15 19:52 bupropion AdvReac Dizziness Verified 12/24/15 19:52 All systems ED: reviewed and negative except as stated. Constitutional: Denies: fever, chills Cardiovascular: Denies: syncope Respiratory: Reports: dyspnea. Denies: cough Gastrointestinal: Reports: abdominal pain (epigastric), nausea. Denies: vomiting, diarrhea, melena, hematochezia Musculoskeletal: Denies: neck pain Neurological: Denies: headache, weakness, numbness Past Medical History - Past Medical History Medical history: Reports: asthma, COPD, coronary artery disease, CVA, GERD, hyperlipidemia, hypertension, kidney stones, myocardial infarction, peripheral artery disease, renal disease, other Surgical history: Reports: angioplasty/stent, cholecystectomy, vasectomy Psychiatric history: Reports: no psych history - Social History Smoking Status: Former smoker Smokeless Tobacco Status: No Alcohol use: Reports: occasionally Drug use: Reports: none Physical Exam General: Patient is resting in bed, talkative and alert Cardiovascular: Regular rate and rhythm, S1-S2, no rubs or gallops Respiratory: Breath sounds clear bilaterally. No wheezing, rales or rhonchi. No resp distress Abdomen: Abdomen is soft without any guarding, rebound or rigidity. He does have some reproducible epigastric tenderness without any pulsatile abdominal mass. No palpable organomegaly. No overlying signs of injury. Normal bowel sounds throughout. Eyes: Conjunctiva clear without scleral icterus HENT: No oral mucosal lesions. Moist mucous membranes Neuro: Normal motor and sensory throughout, stands and inability dependently, alert, oriented talkative Musculoskeletal: No lower extremity swelling, asymmetry, calf tenderness or edema. No signs of infection. No other joint swelling or tenderness. Skin: No overlying rashes, lesions. He is not diaphoretic, skin is normal color with normal turgor. Psych: Appropriate - General General appearance: alert, in no apparent distress Course Course Narrative: Presents with ongoing epigastric pain that is similar to his previous symptoms. About 2 weeks ago he had similar symptoms, had a heart catheterization and had a 90% mid LAD stenosis which a stent was placed. He had other coronary vessel disease but nothing significant. His EKG shows no change from previous. His troponin is elevated at 0.07 but patient chronically has an elevated troponin. He does have a history of lupus. He has had ongoing epigastric pain and has had an endoscopy and CT scan with no apparent diagnosis. However, with patient complaining of ongoing epigastric pain that radiates into his back without any other clear cause we discussed the possibility of dissection. The patient was completely comfortable having this CTA ordered. CTA reveals some atherosclerosis and nodes but no dissection or aneurysm. At this time the concern is epigastric pain is his anginal equivalent and has returned with recent stenting. I find no acute changes on the EKG and his troponin is chronically elevated and I discussed with the hospitals, Dr. Singh who accepts for admission. He does request that I page the navigation officer because of the recent catheterization which I will do. Patient will be admitted to the telemetry unit for further monitoring and evaluation Vital Signs Temperature 97.5 F L 10/01/16 19:38 Pulse Rate 74 10/01/16 19:38 Respiratory Rate 20 10/01/16 19:38 Blood Pressure 166/89 10/01/16 19:38 O2 Sat by Pulse Oximetry 95 10/01/16 19:38 Temperature 97.5 F L 10/01/16 19:38 Pulse Rate 66 10/01/16 23:12 Respiratory Rate 20 10/01/16 23:12 Blood Pressure 130/91 10/01/16 23:12 O2 Sat by Pulse Oximetry 97 10/01/16 23:12 Oxygen Delivery Oxygen Delivery Room Air Medical Decision Making - Lab Data Result diagrams: 10/01/16 20:25 10/01/16 20:25 Lab Results 10/01/16 10/01/16 10/01/16 Range/Units 20:25 20:25 20:25 WBC 6.7 (4.3-11.1) K/mcL RBC 4.12 L (4.19-5.50) M/mcL Hgb 12.3 L (12.9-16.9) g/dL Hct 37.4 L (37.5-50.1) % MCV 90.8 (83.0-100.0) fL MCH 29.9 (28.0-33.3) pg MCHC 32.9 (31.6-35.5) g/dL RDW 14.5 (11.5-14.5) % Plt Count 174 (140-400) K/mcL MPV 11.6 (9.4-12.4) fL Immature Gran % 0.3 (0-4) % Seg Neutrophils % 68.0 % Lymphocytes % 21.3 % Monocytes % 8.3 % Eosinophils % 1.8 % Basophils % 0.3 % Neutrophils # 4.6 (1.6-8.9) K/mcL Lymphocytes # 1.4 (0.6-4.6) K/mcL Monocytes # 0.6 (0.0-1.3) K/mcL Eosinophils # 0.1 (0.0-0.6) K/mcL Basophils # 0.0 (0.0-0.2) K/mcL PT 11.4 (9.4-12.1) Seconds INR 1.1 APTT 29.3 (26.0-36.0) Seconds Sodium (136-145) mEq/L Potassium (3.5-4.5) mEq/L Chloride (98-109) mEq/L Carbon Dioxide (19-29) mEq/L BUN (8-26) mg/dL Creatinine (0.72-1.25) mg/dL Est GFR ( Amer) (> 60) Est GFR (Non-Af Amer) (> 60) BUN/Creatinine Ratio (6-26) Glucose (70-99) mg/dL Calculated Osmolality (280-300) Lactic Acid (0.5-2.2) mmol/L Calcium (8.6-10.8) mg/dL Total Bilirubin (0.2-1.2) mg/dL Direct Bilirubin (0.0-0.5) mg/dL Indirect Bilirubin (0.0-1.2) mg/dL AST (5-34) Units/L ALT (0-55) Units/L Alkaline Phosphatase (38-126) Units/L Troponin I 0.06 H* (0-0.03) ng/mL Serum Total Protein (6.0-8.3) g/dL Albumin (3.5-5.0) g/dL Globulin (2.4-3.5) g/dL Albumin/Globulin Ratio (1.1-2.2) Lipase (8-78) Units/L 10/01/16 10/01/16 Range/Units 20:25 21:25 WBC (4.3-11.1) K/mcL RBC (4.19-5.50) M/mcL Hgb (12.9-16.9) g/dL Hct (37.5-50.1) % MCV (83.0-100.0) fL MCH (28.0-33.3) pg MCHC (31.6-35.5) g/dL RDW (11.5-14.5) % Plt Count (140-400) K/mcL MPV (9.4-12.4) fL Immature Gran % (0-4) % Seg Neutrophils % % Lymphocytes % % Monocytes % % Eosinophils % % Basophils % % Neutrophils # (1.6-8.9) K/mcL Lymphocytes # (0.6-4.6) K/mcL Monocytes # (0.0-1.3) K/mcL Eosinophils # (0.0-0.6) K/mcL Basophils # (0.0-0.2) K/mcL PT (9.4-12.1) Seconds INR APTT (26.0-36.0) Seconds Sodium 141 (136-145) mEq/L Potassium 3.9 (3.5-4.5) mEq/L Chloride 112 H (98-109) mEq/L Carbon Dioxide 18 L (19-29) mEq/L BUN 15 (8-26) mg/dL Creatinine 1.10 (0.72-1.25) mg/dL Est GFR ( Amer) > 60 (> 60) Est GFR (Non-Af Amer) > 60 (> 60) BUN/Creatinine Ratio 14 (6-26) Glucose 115 H (70-99) mg/dL Calculated Osmolality 294 (280-300) Lactic Acid 1.1 (0.5-2.2) mmol/L Calcium 9.2 (8.6-10.8) mg/dL Total Bilirubin 0.5 (0.2-1.2) mg/dL Direct Bilirubin 0.2 (0.0-0.5) mg/dL Indirect Bilirubin 0.3 (0.0-1.2) mg/dL AST 26 (5-34) Units/L ALT 23 (0-55) Units/L Alkaline Phosphatase 122 (38-126) Units/L Troponin I (0-0.03) ng/mL Serum Total Protein 7.3 (6.0-8.3) g/dL Albumin 3.7 (3.5-5.0) g/dL Globulin 3.6 H (2.4-3.5) g/dL Albumin/Globulin Ratio 1.0 L (1.1-2.2) Lipase 47 (8-78) Units/L - EKG Data EKG #1 EKG results narrative: EKG shows a sinus rhythm with a rate of [address] elevation or depression. Intervals within normal limits. Normal axis. T-wave inversion in V1. Previous EKG and 09/12/16 shows similar wave morphology without any acute changes. Attestation Statement - Attestation Attestation: I, Graham Martinez, examined this patient and my medical decision-making was reviewed with the TANNING DRUM OPERATOR/PA/Advanced Practice Nurse/Resident Physician. I agree with the documented findings, disposition and treatment plan as described except to the extent set forth below. 56-year-old male with a history of lupus presents with concerns of epigastric pain. Patient has history of epigastric pain that recently had a cardiac catheterization that showed a 90% blockage and received stenting. Patient states he has been using his brillinta faithfully since that time. Patient reports the pain in his epigastrium as sharp, stabbing, intermittent, radiating to his back. Patient denies near syncopal symptoms. Denies history of [place], melena, diarrhea, constipation. No history of manic dysuria or dysuria. No history of pancreatitis. Patient had an elevated troponin of 0.06 however this is similar to previous levels but he did have a recent stenting of his cardiac vasculature. Patient will be admitted to the hospital for further care and evaluation of his epigastric pain to rule out ACS.
[2016-10-01] MEDS ORDERED: *HR* HYDROmorphone (PF) 1 MG/ML SYRINGE IVP ONE (21:41)
[2016-10-01] MEDS ORDERED: *HR* Morphine 2 MG/ML SYRINGE IVP STA (22:49)
[2016-10-02] MEDS ORDERED: Acetaminophen 325 MG TABLET PO PRN (00:17)
[2016-10-02] MEDS ORDERED: Ondansetron 4 MG/2 ML VIAL IVP PRN (00:17)
[2016-10-02] MEDS ORDERED: Naloxone 0.4 MG/ML INJ IVP PRN (00:17)
[2016-10-02] MEDS ORDERED: Mag Hydrox/Al Hydrox/Simeth 30 ML UDC PO PRN (01:14)
--- NOTE | 2016-10-02 01:18 | Internal Med History&Physical ---
Date of Encounter: 10/02/16 Time of Encounter: 01:16 Assessment and Plan (1) Epigastric pain Current visit: Yes Status: Acute Patient presents with epigastric pain that started 3 days ago. He has a history of coronary artery stent placement about 2 weeks ago. Exam reveals tenderness to palpation in the epigastric region. Parrish's sign is negative. Patient does have a history of cholecystectomy. Troponin mildly elevated. EKG does not reveal any acute new changes. Patient will be placed under observation on telemetry. Cardiology consult. Cycle cardiac enzymes. Nitroglycerin sublingual when necessary. Maalox when necessary. (2) Elevated troponin Current visit: Yes Status: Acute Patient has chronically elevated troponins. Cycle cardiac enzymes. If adynamic, this is likely due to his baseline. Cardiology consult. (3) COPD (chronic obstructive pulmonary disease) Current visit: Yes Status: Chronic Stable and without exacerbation. Continue home medications. Qualifiers: COPD type: unspecified COPD Qualified Code(s): J44.9 - Chronic obstructive pulmonary disease, unspecified (4) Coronary artery disease Current visit: Yes Status: Chronic Stable. Continue home medications. Qualifiers: Coronary Disease-Associated Artery/Lesion type: [place] artery [place] vs. transplanted heart: [place] heart Associated angina: angina presence unspecified Qualified Code(s): I25.10 - Atherosclerotic heart disease of [place] coronary artery without angina pectoris (5) HTN (hypertension) Current visit: Yes Status: Chronic Stable. Continue home medications. Qualifiers: Hypertension type: essential hypertension Qualified Code(s): I10 - Essential (primary) hypertension (6) H/O mitral valve repair Current visit: No Status: Chronic (7) History of coronary artery bypass graft Current visit: No Status: Chronic Internal Medicine - H&P: HPI Chief complaint: Abdominal pain Admitted From: Emergency Dept Plans for Post Hospital Care: Home History of present illness: Mr. Champion is a 56 year old male who presents to the emergency department due to abdominal pain. Patient states that he has 10/10 pain in his mid abdomen in the upper aspect that is squeezing in nature with radiation to the back that started 3 days ago. The patient has a history of chronic pain in his abdomen. About 2 weeks ago, he presented to the hospital with the same complaint and was found to have single-vessel coronary artery disease and had a stent placed. Hence, he presented to the emergency department concerned about an acute SD. He states that the pain is worsened with food intake and relieved if he does not eat any food. He also reports some nausea and vomiting. He reports diarrhea which he attributes to taking stool softener in preparation for his colonoscopy to be performed by GI as an outpatient. He denies any fever or chills. He states that the abdominal pain is associated with sweating and nausea. He states that it is also associated with shortness of breath. He denies any cough or palpitations. He reports wheezing. He denies any urinary symptoms, weight changes recently or changes in his appetite. Past Med Surg Social Fam HX - Past Medical History Attestation: Yes The following information was validated with the patient. Source: patient Medical history: COPD, coronary artery disease, CVA, GERD, hyperlipidemia, hypertension, kidney stones, myocardial infarction, peripheral artery disease, renal disease, other Psychiatric history: no psych history - Past Surgical History Surgical History: angioplasty/stent, cholecystectomy, orthopedic, other, vasectomy, other (Valve replacement) - Social History Smoking Status: Former smoker Smokeless Tobacco Status: No Alcohol use: none Drug use: none - Family History Father Living Status: Still Living Hx Family Cardiac Disorders: Yes Hx Family Respiratory Disorders: Yes (COPD) Hx Family Cancer: Yes Hx Family GI Disorders: Yes (Ulcers) Hx Family Endocrine Disorder: No Hx Family Neuromuscular Disorders: No Hx Family Neurologic Disorders: No Hx Family HEENT Disorders: No Hx Family Autoimmune Disorders: No Mother Living Status: Still Living Hx Family Cardiac Disorders: Yes (SD, stents) Hx Family Respiratory Disorders: No Hx Family Cancer: Yes (Stomach) Hx Family GI Disorders: No Hx Family Endocrine Disorder: Yes (DM) Hx Family Neuromuscular Disorders: No Hx Family Neurologic Disorders: No Hx Family HEENT Disorders: No Hx Family Autoimmune Disorders: No Internal Medicine - H&P: Meds ALPRAZolam [Xanax 1 MG Tablet] 1 mg PO QID 06/29/15 [History] Albuterol Sulfate [Albuterol Inhaler] 1 - 2 puff IH Q6HR PRN 06/29/15 [History] Atorvastatin [Lipitor] 40 mg PO DAILY 06/29/15 [History] Mirabegron [Myrbetriq] 50 mg PO DAILY 06/29/15 [History] Nitroglycerin [Nitrostat] 0.4 mg SL PRN PRN 08/19/15 [History] Dicyclomine [Bentyl] 20 mg PO QID #56 capsule 12/29/15 [Rx] Simethicone [Gas-X] 80 mg PO TID #21 tab.chew 12/29/15 [Rx] Aspirin 81 mg PO DAILY 09/12/16 [History] Mirtazapine [Remeron] 15 mg PO HS 09/12/16 [History] OxyCODONE/APAP 5/325 [Percocet 5/325 MG] 1 tab PO Q6HR PRN 09/12/16 [History] Pantoprazole Sodium [Protonix] 20 mg PO DAILY 09/12/16 [History] Metoprolol XL (24 HR) Succ [Toprol Xl] 12.5 mg PO DAILY #30 tab.er.24h 09/14/16 [Rx] Ticagrelor [Brilinta] 90 mg PO BID #60 tablet 09/14/16 [Rx] Allergies cephalexin [From Keflex] Allergy (Verified 12/25/15 11:12) Hives ciprofloxacin [From Cipro] Allergy (Verified 12/25/15 11:12) Hives clindamycin Allergy (Verified 12/24/15 19:52) Rash meperidine [From Demerol] Allergy (Verified 12/24/15 19:52) Rash Penicillins Allergy (Verified 12/24/15 19:52) Rash sulfamethoxazole [From Bactrim] Allergy (Verified 12/24/15 19:52) Rash trimethoprim [From Bactrim] Allergy (Verified 12/24/15 19:52) Rash bupropion Adverse Reaction (Verified 12/24/15 19:52) Dizziness All Systems PM: A 10-system review of systems was performed and is negative for pertinent findings except as documented above in the HPI. Review of systems: 10 systems have been reviewed and are negative except as mentioned in the history of present illness - Constitutional Vitals: Temp Pulse Resp BP Pulse Ox 97.8 F 64 16 138/76 96 10/02/16 00:42 10/02/16 00:42 10/02/16 00:42 10/02/16 00:42 10/02/16 00:42 Exam: Gen.: Lying in bed. Mild distress. Eyes: Pupils equal, round and reactive to light. Extraocular muscles intact. ENT: Moist mucous membranes. No oropharyngeal erythema or discharge. Chest: Clear to auscultation bilaterally. No adventitious sounds present. Midline CABG scar. CVS: First and second heart sounds present. No murmurs, rubs or gallops. Abdomen: Soft, tenderness to palpation in the epigastric and right hypochondriac regions without any rebound tenderness, guarding or rigidity; nondistended. Bowel sounds present. No hepatosplenomegaly. Skin: No decubitus ulcers appreciated. VEGETABLES COOK: No focal neuro deficits present. Psychiatric: Alert, awake and oriented to time, place and person. Lymphatic system: No lymphadenopathy appreciated Internal Med - H&P Results - Labs CBC & Chem 7: 10/01/16 20:25 10/01/16 20:25 - EKG Data -: EKG Interpreted by Myself EKG shows normal: sinus rhythm, ST-T waves (Nonspecific ST-T changes) Rate: normal - EKG Data Prior EKG available for review: yes When compared to previous EKG: there is no significant change - Diagnostic Studies Chest x-ray Status: image reviewed by me (No acute abnormality demonstrated)
[2016-10-02] MEDS ORDERED: Nitroglycerin 0.4 MG TAB.SUBL SL PRN (01:24)
[2016-10-02] MEDS ORDERED: ALPRAZolam 1 MG TABLET PO PRN (02:07)
[2016-10-02] MEDS: *HR* OxyCODONE/APAP 5/325 TABLET PO PRN ×3 (02:21→22:29)
[2016-10-02] MEDS: *HR* Ticagrelor 90 MG TABLET PO SCH ×3 (02:21→20:32)
[2016-10-02] MEDS: Aspirin Enteric Coated 81 MG Tablet PO SCH (08:04)
[2016-10-02] MEDS: Metoprolol XL (24 HR) Succ 25 MG TAB.ER.24H PO SCH (08:04)
--- NOTE | 2016-10-02 11:02 | Cardiology Consult Note ---
<Rohit Ayala Meghan - Last Filed: 10/02/16 12:18> Date of Encounter: 10/02/16 Time of Encounter: 10:59 Assessment and Plan (1) Elevated troponin Current Visit: No Status: Acute Troponin 0.06, 0.07, 0.06--flat and adynamic. Pt has hx of chronically elevated troponins in this range. In setting of Epigastric pain and distention. Denies chest pain. Nondiagnostic for ACS. Recent LHC DENG to mid LAD 09/13/16 with no missed doses of ASA or Brilinta. No EKG changes. EF preserved on echo 09/2016. No further cardiac work-up warranted. Anticipate sign off once seen and evaluated by Dr. Joyner. (2) Coronary artery disease Current Visit: Yes Status: Chronic LHC 09/13/16 single vessel CAD s/p DENG to mid LAD. DAPT (ASA and Brilinta) uninterrupted x 1 year. Pt denies missing any doses. Continue statin and BB. Qualifiers: Coronary Disease-Associated Artery/Lesion type: [place] artery [place] vs. transplanted heart: [place] heart Associated angina: angina presence unspecified Qualified Code(s): I25.10 - Atherosclerotic heart disease of [place] coronary artery without angina pectoris (3) H/O mitral valve repair Current Visit: No Status: Chronic Hx of mitral valve repair. Trace MR and borderline mitral stenosis on recent echo. (4) Epigastric pain Current Visit: Yes Status: Chronic Seems noncardiac in origin. Epigastric pain and distention. Epigastric pain has been ongoing since prior to recent PCI. Was scheduled for outpt follow-up with Dr. Liz tomorrow. Hospitalist consulted Dr. Liz while inpt. Await GI recommendations. Discussion w patient/family: The assessment and plan as outlined above was discussed with the patient and/or family members who expressed understanding and agreement. All questions were answered. Thank you for involving us in the care of your patient. Please call with any questions. I will discuss all the above with Dr. Joyner and make changes as necessary. History of Present Illness Consult date: 10/02/16 Requesting physician: Christina Madison Consult reason: Epigastric pain, elevated troponin Chief complaint: Epigastsric pain History of present illness: Mr. Champion is a 56 year old male with PMH of CAD s/p PCI 09/13/16 to mid LAD, Hx of CABG, hx of mitral valve repair, PAD, intracranial bleed, CVA, HTN, HLD, CKD , prior tobacco abuse. He presented 10/02 to the ED due to epigastric pain. Patient states that he had 10/10 pain in his mid upper right quadrant that feels like a stinging sensation. Reports "it feels like something is twisted in there". The patient has a history of chronic epigastric pain which he reports taking protonix and simethicone for daily. With prior cardiac event pain radiated to chest, which he states did not occur with this episode. He states that the epigastric pain is constant and does not wax or wane. Rates pain 10/10 at its worse and currently 6/10. Reports his abdomen is distended and firm. He has experienced nausea and vomiting. Reports daily BM's with multiple BM's the last few days due to use of stool softeners. He reports abdominal weight gain and at times pedal edema. He denies any fever or chills. Patient reports dyspnea with exertion. States "it feels like everything is pushing up which is causing me to not be able to breath." He denies any cough or palpitations. Troponins 0.06, 0.07, 0.06. Cardiology consulted. Pt denies missing any doses of ASA or Brilinta. Previous CV testing: Echocardiogram: 09/13/16 EF- 55-60% Mild LV hypertrophy Normal RV, borderline mitral stenosis Trace MR Mild-moderate pulmonary HTN LHC: 09/13/16 Severe 1 vessel disease LV gram: EF 50% 90% stenosis with PTCA/DENG mid LAD 30% stenosis LMCA 30% stenosis circumflex 50% stenosis 1st marginal Left PDA subtotally occluded in the mid portion 50-60% stenosis mid RCA Right PDA mild occlusion TILLMAN occluded TOI: 08/19/16 [facility] Mild-moderate MVR and mild stenosis Past Med Surg Social Fam HX - Past Medical History Medical history: COPD, coronary artery disease, CVA, GERD, hyperlipidemia, hypertension, kidney stones, myocardial infarction, peripheral artery disease, renal disease, other Psychiatric history: no psych history - Past Surgical History Surgical History: angioplasty/stent, cholecystectomy, orthopedic, other, vasectomy, other (Valve replacement) - Social History Smoking Status: Former smoker Smokeless Tobacco Status: No Alcohol use: none Drug use: none - Family History Father Living Status: Still Living Hx Family Cardiac Disorders: Yes Hx Family Respiratory Disorders: Yes (COPD) Hx Family Cancer: Yes Hx Family GI Disorders: Yes (Ulcers) Hx Family Endocrine Disorder: No Hx Family Neuromuscular Disorders: No Hx Family Neurologic Disorders: No Hx Family HEENT Disorders: No Hx Family Autoimmune Disorders: No Mother Living Status: Still Living Hx Family Cardiac Disorders: Yes ([place], stents) Hx Family Respiratory Disorders: No Hx Family Cancer: Yes (Stomach) Hx Family GI Disorders: No Hx Family Endocrine Disorder: Yes (DM) Hx Family Neuromuscular Disorders: No Hx Family Neurologic Disorders: No Hx Family HEENT Disorders: No Hx Family Autoimmune Disorders: No Medications and Allergies ALPRAZolam [Xanax 1 MG Tablet] 1 mg PO TID 06/29/15 [History] Albuterol Sulfate [Albuterol Inhaler] 1 - 2 puff IH Q6HR PRN 06/29/15 [History] Atorvastatin [Lipitor] 40 mg PO DAILY 06/29/15 [History] Mirabegron [Myrbetriq] 50 mg PO DAILY 06/29/15 [History] Nitroglycerin [Nitrostat] 0.4 mg SL PRN PRN 08/19/15 [History] Simethicone [Gas-X] 80 mg PO TID #21 tab.chew 12/29/15 [Rx] Aspirin 81 mg PO DAILY 09/12/16 [History] Mirtazapine [Remeron] 15 mg PO HS 09/12/16 [History] OxyCODONE/APAP 5/325 [Percocet 5/325 MG] 1 tab PO Q6HR PRN 09/12/16 [History] Pantoprazole Sodium [Protonix] 20 mg PO DAILY 09/12/16 [History] Metoprolol XL (24 HR) Succ [Toprol Xl] 12.5 mg PO DAILY #30 tab.er.24h 09/14/16 [Rx] Ticagrelor [Brilinta] 90 mg PO BID #60 tablet 09/14/16 [Rx] Allergies cephalexin [From Keflex] Allergy (Verified 12/25/15 11:12) Hives ciprofloxacin [From Cipro] Allergy (Verified 12/25/15 11:12) Hives clindamycin Allergy (Verified 12/24/15 19:52) Rash meperidine [From Demerol] Allergy (Verified 12/24/15 19:52) Rash Penicillins Allergy (Verified 12/24/15 19:52) Rash sulfamethoxazole [From Bactrim] Allergy (Verified 12/24/15 19:52) Rash trimethoprim [From Bactrim] Allergy (Verified 12/24/15 19:52) Rash bupropion Adverse Reaction (Verified 12/24/15 19:52) Dizziness All Systems Review: A 10-system review of systems was performed and is negative for pertinent findings except as documented above in the HPI. - Cardiovascular Cardiovascular: as per HPI, dyspnea at rest, dyspnea on exertion, leg edema - Respiratory Respiratory: dyspnea - Gastrointestinal Gastrointestinal: abdominal pain, nausea Physical Examination Vital Signs, Last 4 Hours Temp Pulse Resp BP Pulse Ox 10/02/16 07:13 97.7 F 61 16 117/73 96 Vital Signs Temp Pulse Resp BP Pulse Ox 10/02/16 11:11 97.4 F L 57 16 114/74 96 10/02/16 07:13 97.7 F 61 16 117/73 96 10/02/16 04:18 97.6 F 59 16 126/79 95 10/02/16 00:42 97.8 F 64 16 138/76 96 10/02/16 00:41 96 10/01/16 23:54 18 117/70 10/01/16 23:12 66 20 130/91 97 10/01/16 22:39 66 20 124/91 97 10/01/16 22:13 71 18 112/68 99 10/01/16 20:34 99 10/01/16 20:12 84 24 100 10/01/16 19:38 97.5 F L 74 20 166/89 95 Intake and Output 10/01/16 10/02/16 10/02/16 23:59 07:59 15:59 Intake Total 380 / 380 Balance 380 / 380 Intake: Oral 380 / 380 Other: Meal Breakfast Percent of Meal Consumed 90% # Voids 1 Weight 92.624 kg 91.9 kg Patient Weight 10/02/16 23:59 Weight 91.9 kg General: Conversant, No Apparent Distress HEENT: Atraumatic, Normocephaly, Mucus Membranes Moist Neck: No JVD, Normal carotid pulses Cardiac: Reg Rate and Rhythm, Normal S1 and S2, No Murmur Lungs: Normal Breath Sounds, No Wheeze, Rales, Rhonchi Neuro: Alert and responsive, No focal deficits noted Abdomen: Other (tenderness on palpation, firm, distended) Skin: No rashes noted on visualized skin Musculoskeletal: No Chest Wall Tenderness Extremities: No Clubbing, No Cyanosis, No Edema, Normal Pulses Results 10/01/16 20:25 10/01/16 20:25 Lab Results 10/02/16 10/02/16 01:32 04:33 Troponin I 0.07 H* 0.06 H* Short CBC 10/01/16 Range/Units 20:25 WBC 6.7 (4.3-11.1) K/mcL Hgb 12.3 L (12.9-16.9) g/dL Hct 37.4 L (37.5-50.1) % Plt Count 174 (140-400) K/mcL Neutrophils # 4.6 (1.6-8.9) K/mcL BMP 10/01/16 Range/Units 20:25 Sodium 141 (136-145) mEq/L Potassium 3.9 (3.5-4.5) mEq/L Chloride 112 H (98-109) mEq/L Carbon Dioxide 18 L (19-29) mEq/L BUN 15 (8-26) mg/dL Creatinine 1.10 (0.72-1.25) mg/dL Glucose 115 H (70-99) mg/dL Calcium 9.2 (8.6-10.8) mg/dL Cardiac Enzymes 10/02/16 10/02/16 10/01/16 Range/Units 04:33 01:32 20:25 Troponin I 0.06 H* 0.07 H* 0.06 H* (0-0.03) ng/mL Liver Function 10/01/16 Range/Units 20:25 Total Bilirubin 0.5 (0.2-1.2) mg/dL Direct Bilirubin 0.2 (0.0-0.5) mg/dL AST 26 (5-34) Units/L ALT 23 (0-55) Units/L Alkaline Phosphatase 122 (38-126) Units/L Albumin 3.7 (3.5-5.0) g/dL Impressions Chest CTA 10/01/16 00:00 IMPRESSION: Chest: No aortic dissection or aneurysm. 1.7 x 2.6 cm right hilar lymph node with multiple smaller mediastinal nodes, indeterminate. Impression abdomen: Multifocal atherosclerotic change throughout the abdomen and pelvis as described. Multifocal associated narrowing is noted. There is no aneurysm or dissection. Additional findings in the abdomen and pelvis as described above. D/ / Yung Graham / Yung Graham Interpreting Provider: Yung Graham Chest X-Ray 10/01/16 20:03 IMPRESSION: No acute cardiopulmonary disease. D/ / Gasper Canas MD / Gasper Canas MD Interpreting Provider: Gasper Canas MD X-Ray 10/01/16 20:08 IMPRESSION: Nonspecific abdominal bowel gas pattern. D/ / Gasper Canas MD / Gasper Canas MD Interpreting Provider: Gasper Canas MD Abdomen/Pelvis CTA 10/01/16 21:16 IMPRESSION: Chest: No aortic dissection or aneurysm. 1.7 x 2.6 cm right hilar lymph node with multiple smaller mediastinal nodes, indeterminate. Impression abdomen: Multifocal atherosclerotic change throughout the abdomen and pelvis as described. Multifocal associated narrowing is noted. There is no aneurysm or dissection. Additional findings in the abdomen and pelvis as described above. D/ / Yung Graham / Yung Graham Interpreting Provider: Yung Graham Active Medications Acetaminophen (Tylenol) 650 mg PO Q6HR PRN PRN Reason: Mild Pain (1-3) Stop: 04/03/17 00:18 Al Hydrox/Mg Hydrox/Simethicone (Maalox) 15 ml PO Q6HR PRN; Protocol PRN Reason: Dyspepsia Stop: 04/03/17 01:15 Alprazolam (Xanax) 1 mg PO QID PRN; Protocol PRN Reason: Anxiety Stop: 04/03/17 02:08 Aspirin (Aspirin Ec) 81 mg PO DAILY BEENA Stop: 04/03/17 09:01 Last Admin: 10/02/16 08:04 Dose: 81 mg Atorvastatin Calcium (Lipitor) 40 mg PO DAILY BEENA Stop: 04/03/17 09:01 Last Admin: 10/02/16 08:04 Dose: 40 mg Metoprolol Succinate (Toprol Xl) 12.5 mg PO DAILY BEENA Stop: 04/03/17 09:01 Last Admin: 10/02/16 08:04 Dose: 12.5 mg Naloxone HCl (Narcan) 0.4 mg IVP Q2MIN PRN PRN Reason: Opioid Reversal Stop: 04/03/17 00:18 Nitroglycerin (Nitroglycerin) 0.4 mg SL Q5MIN PRN PRN Reason: Chest Pain Stop: 04/03/17 01:25 Ondansetron HCl (Zofran) 4 mg IVP Q8HR PRN PRN Reason: Nausea And Vomiting Stop: 04/03/17 00:18 Oxycodone/Acetaminophen (Percocet 5/325) 1 each PO Q6HR PRN PRN Reason: Severe Pain Stop: 04/03/17 02:08 Last Admin: 10/02/16 08:07 Dose: 1 each Ticagrelor (Brilinta) 90 mg PO BID COUNTS INCLUDE 234 BEDS AT THE [facility] Stop: 04/03/17 01:16 Last Admin: 10/02/16 08:04 Dose: 90 mg - Imaging and Cardiology Echo: report reviewed Cardiac cath: report reviewed - EKG Interpretation EKG results cardiology: personally reviewed Consult Discharge Plan - Plan Referrals: NO,PCP [Primary Care Provider] - <Mary Joyner - Last Filed: 10/02/16 17:16> Date of Encounter: 10/02/16 Assessment and Plan Discussion w patient/family: The assessment and plan as outlined above was discussed with the patient and/or family members who expressed understanding and agreement. All questions were answered. Thank you for involving us in the care of your patient. Please call with any questions. History of Present Illness History of present illness: Mr. Champion is a 56 year old male All Systems Review: A 10-system review of systems was performed and is negative for pertinent findings except as documented above in the HPI. Physical Examination Vital Signs, Last 4 Hours Temp Pulse Resp BP Pulse Ox 10/02/16 15:54 97.6 F 62 16 125/81 98 Results 10/01/16 20:25 10/01/16 20:25 Lab Results 10/02/16 10/02/16 01:32 04:33 Troponin I 0.07 H* 0.06 H* - Attending Attestation I examined this patient and my medical decision-making was reviewed with the SKILLED NURSING CASE MANAGER/PA/Advanced Practice Nurse/Resident Physician. I agree with the documented findings, disposition and treatment plan. Mr. Champion presents with mild, flat elevated troponins in setting of epigastric pain and distention. Recent LHC was 09/13/2016. He admits compliance with DAPT and there are no concerning ECG changes. CT abd/pelvis did not show acute findings-scattered vascular calcifications noted. Blood counts are normal. Cath was done by way of radial approach. EF was normal on echo. Troponins in this setting are not diagnostic for an acute coronary syndrome. Recommend GI evaluation. We will sign off. Please call with questions. Continue cardiac medical therapy.
[2016-10-02] MEDS ORDERED: GI Cocktail 40 ML EACH PO ONE (11:39)
--- NOTE | 2016-10-02 11:43 | Internal Med Progress Note ---
Date of Encounter: 10/02/16 Time of Encounter: 08:10 - Assessment and plan (1) Epigastric pain Current Visit: Yes Status: Chronic Assessment and plan: Pr reports that he has had this same pain for at least one year. He said,"I feel like my buts have locked up." He had this same pain earlier this month and was admitted and had a new coronary artery stent placed. Pt has flat, adynamic troponin elevation, has been evaluated by cardiology this a.m. Abd is distended and firm, epigastric area tender to palpation. Pt has seen Dr. Liz and has had GERD symptoms for several years. Pt rates the pain 8/10 and pt is obviously SOB due to distension. He is to have an outpt EGD done tomorrow by Dr. Liz. I have consulted with GI and Dr. Liz states that they will be over to see this pt later this afternoon. Pt states that he has been constipated intermittently and has been taking a pill that was given to him that he describes as a laxative. He states that the pain is constant and that it is worse with walking, better with Percocet. I have ordered a GI cocktail and will wait for nursing to notify me about the results. (2) Elevated troponin Current Visit: Yes Status: Acute Assessment and plan: Mildly elevated, highest at 0.07. Pt had PCI/DENG to mid LAD on 09/13/16. Echo on same date EF 55-60%, mild mild LV hypertrophy, Normal RV, borderline mitral stenosis, trace MR, and mild-moderate pulmonary htn. Pt had LHC on same date that showed severe 1 vessel disease, stent placed. Cardiology has evaluated and signed off. (3) History of mitral valve replacement Current Visit: No Status: Chronic (4) HTN (hypertension) Current Visit: Yes Status: Chronic Assessment and plan: Continue home medications. Qualifiers: Hypertension type: essential hypertension Qualified Code(s): I10 - Essential (primary) hypertension (5) COPD (chronic obstructive pulmonary disease) Current Visit: Yes Status: Chronic Assessment and plan: No acute exacerbaton. Continue home medications. Qualifiers: COPD type: unspecified COPD Qualified Code(s): J44.9 - Chronic obstructive pulmonary disease, unspecified (6) Coronary artery disease Current Visit: Yes Status: Chronic Assessment and plan: Stable. Continue home medications. Aspirin, Lipitor and Metoprolol Qualifiers: Coronary Disease-Associated Artery/Lesion type: [place] artery [place] vs. transplanted heart: [place] heart Associated angina: angina presence unspecified Qualified Code(s): I25.10 - Atherosclerotic heart disease of [place] coronary artery without angina pectoris - Time Spent With Patient less than 15 minutes - Subjective Interval history: Patient was seen and assessed this morning and about 8:10 AM. Patient reports epigastric pain 3 days. States he has had pain for about a year, however is in really bad for the last 3 days. He says this is same pain that he had earlier this month when he was taken to [facility] and had a cardiac stent. Placed. He does report nausea and vomiting 2 this morning, nausea and vomiting awakened him during the night. He says the pain is 6/10 in the epigastric area with radiation, describes it as sharp. States that he seemed was given a pill he is not sure what it was from Dr. Hester he has been taking, he had 2 bowel movements yesterday and multiple episodes of diarrhea after after taking the pill. He is a patient of Dr. Liz and was scheduled to have an outpatient EGD tomorrow. He says he has had reflux symptoms and abdominal pain for at least 6 months to a year. He is a nonsmoker last 2 years. The pain is constant, he tells me the pain is worse with walking, he does report shortness of breath with the pain, and Percocet makes the pain better. Patient is very poor historian with what appears to be limited knowledge of his medications or medical history. - Constitutional Vitals: Temp Pulse Resp BP Pulse Ox 97.4 F L 57 16 114/74 96 10/02/16 11:11 10/02/16 11:11 10/02/16 11:11 10/02/16 11:11 10/02/16 11:11 General appearance: Present: cooperative, A&O X 3, pleasant, severe distress, answers questions appropriately - Head Head exam: Present: normal inspection - Eye Eye exam: Present: normal appearance, conjuntiva pink - ENT ENT exam: Present: mucous membranes moist, normal exam, normal external ear exam - Neck Neck exam general surgery: Present: normal inspection. Absent: lymphadenopathy , tenderness - Respiratory Respiratory exam: Present: CTAB. Absent: rales, respiratory distress, rhonchi, wheezes, tachypnea - Cardiovascular Cardiovascular exam: Present: RRR, +S1, +S2. Absent: clicks, diastolic murmur, gallop, systolic murmur - GI/Abdominal GI/Abdominal exam: Present: firm, normal bowel sounds, soft. Absent: distended , hepatomegaly, tenderness - Extremities Exam Extremities exam: Present: warm, radial pulses palpable and symetrical. Absent : pedal edema, tenderness - Neurological Exam Neurological exam: Present: alert, oriented X3, no focal deficits. Absent: facial droop, speech deficit - Skin Skin exam: Present: dry, intact, normal color, warm Internal Medicine: Result - Labs CBC & Chem 7: 10/01/16 20:25 10/01/16 20:25 Labs: Cardiac Enzymes 10/02/16 10/02/16 Range/Units 01:32 04:33 Troponin I 0.07 H* 0.06 H* (0-0.03) ng/mL - ABG Interpretation ABG results: PT/INR, D-dimer PT 11.4 Seconds (9.4-12.1) 10/01/16 20:25 Consult Discharge Plan - Plan Referrals: NO,PCP [Primary Care Provider] -
[2016-10-02] MEDS: Simethicone 80 MG TAB.CHEW PO SCH ×2 (15:55→20:32)
--- NOTE | 2016-10-02 17:50 | Electrocardiograph Report ---
[place] [id number] Test Date: 2016-10-01 Pat Name: Warren Champion Department: 103 Room: 3B Gender: M Rn Er: CARLOS : 1960 Requested By: Mohinder Lyons Order Number: [id number] Reading MD: Bo Mak MD Measurements Intervals [place] Rate: 72 P: 61 TX: 145 QRS: 69 QRSD: 94 T: 40 QT: 404 QTc: 428 Interpretive Statements SINUS RHYTHM LEFT ATRIAL ENLARGEMENT Electronically Signed On 10-02-2016 17:49:25 EDT by Bo Mak MD
[2016-10-02] MEDS: Sucralfate 1 GM TABLET PO SCH (23:43)
[2016-10-02] MEDS: Sennosides/Docusate Sodium TABLET PO SCH (23:43)
[2016-10-03 03:52] LABS: Basophils % 0.3 %; Eosinophils # 0.2 K/mcL (0.0-0.6); Eosinophils % 2.2 %; Hematocrit 37.9 % (37.5-50.1); Hemoglobin 12.2 g/dL (12.9-16.9); Immature Granulocytes % 0.3 % (0-4); Lymphocytes # 1.2 K/mcL (0.6-4.6); Mean Corpuscular HGB Conc 32.2 g/dL (31.6-35.5); Mean Corpuscular Hemoglobin 29.3 pg (28.0-33.3); Mean Corpuscular Volume 91.1 fL (83.0-100.0); Mean Platelet Volume 11.6 fL (9.4-12.4); Monocytes # 0.5 K/mcL (0.0-1.3); Monocytes % 7.9 %; Neutrophils # 4.8 K/mcL (1.6-8.9); Platelet Count 152 K/mcL (140-400); Red Blood Count 4.16 M/mcL (4.19-5.50); Red Cell Distribution Width 14.5 % (11.5-14.5); Segmented Neutrophils % 71.3 %
[2016-10-03 04:08] LABS: BUN/Creatinine Ratio 15 (6-26); Blood Urea Nitrogen 13 mg/dL (8-26); Calcium 8.8 mg/dL (8.6-10.8); Carbon Dioxide 20 mEq/L (19-29); Chloride 109 mEq/L (98-109); Glucose 85 mg/dL (70-99); Osmolality,Calculated 283 (280-300); Sodium 137 mEq/L (136-145); eGFR For African Americans > 60 (> 60); eGFR For Non-African Americans > 60 (> 60)
[2016-10-03] MEDS: *HR* OxyCODONE/APAP 5/325 TABLET PO PRN ×2 (06:49→17:43)
[2016-10-03] MEDS: Sennosides/Docusate Sodium TABLET PO SCH ×2 (08:23→20:18)
[2016-10-03] MEDS: Sucralfate 1 GM TABLET PO SCH ×4 (08:23→20:19)
[2016-10-03] MEDS: Aspirin Enteric Coated 81 MG Tablet PO SCH (08:23)
[2016-10-03] MEDS: Simethicone 80 MG TAB.CHEW PO SCH ×3 (08:23→15:45)
[2016-10-03] MEDS: *HR* Ticagrelor 90 MG TABLET PO SCH ×2 (08:23→20:18)
[2016-10-03] MEDS: Metoprolol XL (24 HR) Succ 25 MG TAB.ER.24H PO SCH (08:23)
--- NOTE | 2016-10-03 12:39 | Gastroenterology Consult Note ---
<Hayder Case - Last Filed: 10/03/16 12:35> Date of Encounter: 10/03/16 Time of Encounter: 11:25 - Assessment and plan (1) Abdominal pain Current Visit: No Status: Acute Assessment and plan: Could be due to functional dyspepsia. Patient has undergone extensive workup which has not offered explanation for his abdominal pain. Upper EUS on [address] Liz was normal. Enteroscopy December 2015 was normal. Increase home omeprazole to 40 mg BID. Continue Gas-X, Carafate Qualifiers: Abdominal location: epigastric Qualified Code(s): R10.13 - Epigastric pain (2) Abdominal bloating Current Visit: Yes Status: Acute Assessment and plan: Use Gas-X 30 minutes before meals. 1.) Avoid chewing gum or sucking on hard candies (especially sugarless gum or dietetic candies that contain sorbitol). 2.) Eliminate carbonated beverages and reduce foods containing high-fructose corn syrup from your diet. 3.) Avoid milk and milk products, such as soft cheeses 4.) Eat less gas-producing foods such as: Vegetables: brussel sprouts, broccoli, bagels, bananas, cabbage, cauliflower, cucumbers,carrots, celery and onion. Or when eating such foods, you may consider trying ksuh-bwz-jhaetnv gas relief medicines, which may help breakdown the non-absorbable carbohydrates found in these foods. 5.) Exercise helps to stimulate the passage of gas through the digestive tract, consider walking. 6.) Consider trying ddrk-aru-djzkexg gas relief medicines such as Activated charcoal one tablet with meals or Beano 1-2 tablets or 5-10 drops with meals or Gas-X 1 tablet three times a day with meals or bismuth subsalicylate 524 mg three times a day with meals as needed. (3) Coronary artery disease Current Visit: Yes Status: Chronic Qualifiers: Coronary Disease-Associated Artery/Lesion type: [place] artery [place] vs. transplanted heart: [place] heart Associated angina: angina presence unspecified Qualified Code(s): I25.10 - Atherosclerotic heart disease of [place] coronary artery without angina pectoris (4) COPD (chronic obstructive pulmonary disease) Current Visit: Yes Status: Chronic Qualifiers: COPD type: unspecified COPD Qualified Code(s): J44.9 - Chronic obstructive pulmonary disease, unspecified - Time Spent With Patient Total time spent is greater than 50% in coordination of care (as documented) at patient's floor/unit and/or counseling patient: GI History of Present Illness - Data of Consult Patient: known to practice within the last 3 years Consult date: 10/03/16 Requesting Physician: Christina Madison CNP - Consult Narrative Reason for consult: Abdominal pain History of present illness: Mr. Champion is a 56 year old male with PMHx of COPD, CAD, CVA, GERD, Boudreaux's esophagus HLD, HTN, SC, who presented to the ED with c/o abdominal pain. Patient states that he has 10/10 pain in his mid abdomen in the upper aspect that is squeezing in nature with radiation to the back that started 3 days prior to admission. About 2 weeks ago, he presented to the hospital with the same complaint and was found to have single-vessel CAD and had a stent placed, so he presented to the ED concerned about an acute SC. He states that the pain is worsened with food intake and relieved if he does not eat any food. He also reports some nausea and vomiting. He denies fever, chills, cough, palpitations, urinary symptoms, melena, or hematochezia. He states he is having a daily bowel movement. We were consulted to evaluate abdominal pain. He was scheduled for outpatient follow up with Dr. Liz today. Procedures: Upper EUS 06/13/2016 Dr. Liz: Normal Enteroscopy 12/28/2015 Dr. Liz: Normal esophagus, stomach, examined duodenum, and examined portion of jejunum was normal. Colonoscopy 08/02/2015 with tubular adenoma, internal hemorrhoids, diverticulosis. EGD 10/22/2013 with hiatal hernia, gastritis, Boudreaux's esophagus with no dysplasia. NSAIDs: None Anticoagulation: Brilinta Past Med Surg Social Fam HX - Past Medical History Medical history: COPD, coronary artery disease, CVA, GERD, hyperlipidemia, hypertension, kidney stones, myocardial infarction, peripheral artery disease, renal disease, other Psychiatric history: no psych history - Past Surgical History Surgical History: angioplasty/stent, cholecystectomy, orthopedic, other, vasectomy, other (Valve replacement) - Social History Smoking Status: Former smoker Smokeless Tobacco Status: No Alcohol use: none Drug use: none - Family History Father Living Status: Still Living Hx Family Cardiac Disorders: Yes Hx Family Respiratory Disorders: Yes (COPD) Hx Family Cancer: Yes Hx Family GI Disorders: Yes (Ulcers) Hx Family Endocrine Disorder: No Hx Family Neuromuscular Disorders: No Hx Family Neurologic Disorders: No Hx Family HEENT Disorders: No Hx Family Autoimmune Disorders: No Mother Living Status: Still Living Hx Family Cardiac Disorders: Yes (SC, stents) Hx Family Respiratory Disorders: No Hx Family Cancer: Yes (Stomach) Hx Family GI Disorders: No Hx Family Endocrine Disorder: Yes (DM) Hx Family Neuromuscular Disorders: No Hx Family Neurologic Disorders: No Hx Family HEENT Disorders: No Hx Family Autoimmune Disorders: No - Gastrointestinal Gastrointestinal: Present: as per HPI - Constitutional Constitutional: as per HPI - EENT Eyes: as per HPI Ears: Present: as per HPI Nose, mouth and throat: Present: as per HPI - Cardiovascular Cardiovascular ROS: Present: as per HPI - Respiratory Respiratory IM: Present: as per HPI - Genitourinary Genitourinary: Absent: change in color, Urinary frequency - Neurological ROS Neurological GI: Present: as per HPI - Hematologic/Lymphatic Hematologic/Lymphatic pediatric: Present: as per HPI - Musculoskeletal Musculoskeletal ROS GI: Present: as per HPI - Integumentary Integumentary GI: Present: as per HPI - Psychiatric ROS Psychiatric GI: Present: as per HPI - Endocrine Endocrine IM: Present: as per HPI - Constitutional Vitals: Temp Pulse Resp BP Pulse Ox 97.7 F 59 16 114/74 96 10/03/16 11:18 10/03/16 11:18 10/03/16 11:18 10/03/16 11:18 10/03/16 11:18 General appearance: Present: cooperative, A&O X 3, no acute distress, answers questions appropriately - Head Head exam: Present: atraumatic, normocephalic - Eye Eye exam: Present: normal appearance, sclera anicteric - ENT ENT exam: Present: mucous membranes dry - Neck Neck exam general surgery: Present: normal inspection, trachea midline - Respiratory Respiratory exam: Present: CTAB. Absent: rales, rhonchi, wheezes - Cardiovascular Cardiovascular exam: Present: RRR, +S1, +S2 - GI/Abdominal GI/Abdominal exam: Present: distended, firm, soft, tenderness (epigastric), no peritoneal signs. Absent: guarding - Rectal Rectal exam: Present: deferred - Extremities Exam Extremities exam: Present: warm - Neurological Exam Neurological exam: Present: no focal deficits - Psychiatric Psychiatric exam: Present: normal affect, normal mood - Skin Skin exam: Present: dry, intact, normal color, warm Results - Labs CBC & Chem 7: 10/03/16 03:04 10/03/16 03:04 Labs: Last Result Calcium 8.8 mg/dL (8.6-10.8) 10/03/16 03:04 Troponin I 0.06 ng/mL (0-0.03) H* 10/02/16 04:33 Entire Visit Hgb 12.2 g/dL (12.9-16.9) L 10/03/16 03:04 Hct 37.9 % (37.5-50.1) 10/03/16 03:04 PT 11.4 Seconds (9.4-12.1) 10/01/16 20:25 Total Bilirubin 0.5 mg/dL (0.2-1.2) 10/01/16 20:25 AST 26 Units/L (5-34) 10/01/16 20:25 ALT 23 Units/L (0-55) 10/01/16 20:25 Lipase 47 Units/L (8-78) 10/01/16 20:25 - ABG ABG results: PT/INR, D-dimer PT 11.4 Seconds (9.4-12.1) 10/01/16 20:25 Consult Discharge Plan - Plan Additional Instructions: Follow-up with their primary care physician and Dr. Liz as scheduled Please return to the emergency department as needed for any other problems or concerns. Take Gas-X 30 minutes prior to eating. se Gas-X 30 minutes before meals. 1.) Avoid chewing gum or sucking on hard candies (especially sugarless gum or dietetic candies that contain sorbitol). 2.) Eliminate carbonated beverages and reduce foods containing high-fructose corn syrup from your diet. 3.) Avoid milk and milk products, such as soft cheeses 4.) Eat less gas-producing foods such as: Vegetables: brussel sprouts, broccoli, bagels, bananas, cabbage, cauliflower, cucumbers,carrots, celery and onion. Or when eating such foods, you may consider trying ieqn-mkg-lgdyyra gas relief medicines, which may help breakdown the non-absorbable carbohydrates found in these foods. 5.) Exercise helps to stimulate the passage of gas through the digestive tract, consider walking. 6.) Consider trying gupu-ptw-wfjyqvp gas relief medicines such as Activated charcoal one tablet with meals or Beano 1-2 tablets or 5-10 drops with meals or Gas-X 1 tablet three times a day with meals or bismuth subsalicylate 524 mg three times a day with meals as needed. Resume taking her other home medications. Referrals: German Padilla MD [Primary Care Provider] - <Yoseph Liz - Last Filed: 10/03/16 18:05> Date of Encounter: 10/03/16 Time of Encounter: 17:30 - Time Spent With Patient Total time spent is greater than 50% in coordination of care (as documented) at patient's floor/unit and/or counseling patient: GI History of Present Illness - Data of Consult Requesting Physician: Christina Madison CNP - Consult Narrative History of present illness: Mr. Champion is a 56 year old male - Constitutional Vitals: Temp Pulse Resp BP Pulse Ox 97.8 F 70 20 127/82 95 10/03/16 15:47 10/03/16 15:47 10/03/16 15:47 10/03/16 15:47 10/03/16 15:47 Results - Labs CBC & Chem 7: 10/03/16 03:04 10/03/16 03:04 Labs: Last Result Calcium 8.8 mg/dL (8.6-10.8) 10/03/16 03:04 Troponin I 0.06 ng/mL (0-0.03) H* 10/02/16 04:33 Entire Visit Hgb 12.2 g/dL (12.9-16.9) L 10/03/16 03:04 Hct 37.9 % (37.5-50.1) 10/03/16 03:04 PT 11.4 Seconds (9.4-12.1) 10/01/16 20:25 Total Bilirubin 0.5 mg/dL (0.2-1.2) 10/01/16 20:25 AST 26 Units/L (5-34) 10/01/16 20:25 ALT 23 Units/L (0-55) 10/01/16 20:25 Lipase 47 Units/L (8-78) 10/01/16 20:25 - ABG ABG results: PT/INR, D-dimer PT 11.4 Seconds (9.4-12.1) 10/01/16 20:25 - Attending Attestation I examined this patient and my medical decision-making was reviewed with the STRIP MINE SUPERVISOR/PA/Advanced Practice Nurse/Resident Physician. I agree with the documented findings, disposition and treatment plan as described except to the extent set forth below. Pt with the right-sided upper abdominal pain. Extensive workup in the past including EUS multiple CT, EGDs has been negative. Per patient the pain is focal along with that he feels bloated and some distention. Pain could be due to functional dyspepsia versus SOD. Recommendation is to start the patient on low-dose Reglan and if remains symptomatic then consider's ERCP sphincterotomy as an outpatient
--- NOTE | 2016-10-03 17:53 | Discharge Summary ---
Date of Encounter: 10/03/16 Time of Encounter: 10:10 - Discharge Diagnosis (1) Epigastric pain Priority: Primary Status: Chronic Comments: Patient reports that he has had the same epigastric pain for at least one year. He says he feels like his "guts have locked up". He had the same pain earlier this month and was admitted, had a new coronary artery stent placed at that time. Patient had a mild adynamic troponin elevation. He has been evaluated by cardiology. His abdomen is distended and firm, epigastric area is tender to palpation. He has seen Dr. Gomez in the past and has had GERD symptoms for several years. He rates the pain constant 8/10 and patient is short of breath due to abdominal distention. He was to have an outpatient EGD done yesterday by Dr. wade. Patient reports that he was given some form of what sounds to be a laxative by Dr. Lamas. He says he has been taking it and has diarrhea with it. He says his pain is better with Percocet, worse with walking. He was seen by the eye today. Suggested that the abdominal pain could be due to functional dyspepsia. He has had extensive testing which is not offered any explanation for the pain. He had an upper endoscopy in 06-28 that was normal. He also had an enteroscopy in December, that was normal. We will increase his omeprazole to 40 mg twice daily. Continue with Gas-x and Carafate. The Gas-X will be given 30 minutes before meals. Chest CTA 10/01/16 00:00 IMPRESSION: Chest: No aortic dissection or aneurysm. 1.7 x 2.6 cm right hilar lymph node with multiple smaller mediastinal nodes, indeterminate. Impression abdomen: Multifocal atherosclerotic change throughout the abdomen and pelvis as described. Multifocal associated narrowing is noted. There is no aneurysm or dissection. Additional findings in the abdomen and pelvis as described above. D/ / Yung Graham / Yung Graham Interpreting Provider: Yung Graham Chest X-Ray 10/01/16 20:03 IMPRESSION: No acute cardiopulmonary disease. D/ / Gasper Canas MD / Gasper Canas MD Interpreting Provider: Gasper Canas MD Abdomen/Pelvis CTA 10/01/16 21:16 IMPRESSION: Chest: No aortic dissection or aneurysm. 1.7 x 2.6 cm right hilar lymph node with multiple smaller mediastinal nodes, indeterminate. Impression abdomen: Multifocal atherosclerotic change throughout the abdomen and pelvis as described. Multifocal associated narrowing is noted. There is no aneurysm or dissection. Additional findings in the abdomen and pelvis as described above. D/ / Yung Graham / Yung Graham Interpreting Provider: Yung Graham X-Ray 10/02/16 15:38 IMPRESSION: Nonspecific bowel gas pattern, without evidence of free air. D/ / 10/02/2016 17:00:22 Drake Eugene MD / earnold Interpreting Provider: Drake Eugene MD (2) Elevated troponin Priority: Secondary Status: Acute Comments: His troponin was flat and adynamic. Is a history of chronically elevated troponin within this range. He denies chest pain. Was nondiagnostic for ACS. He had a C DENG to mid LAD September 13 of this year and denies missing doses of aspirin or anticoagulant. There are no EKG changes. Cardiology has signed off. (3) History of mitral valve replacement Priority: Secondary Status: Chronic Comments: Continue anticoagulation. (4) HTN (hypertension) Priority: Secondary Status: Chronic Comments: Continue home medications. Qualifiers: Hypertension type: essential hypertension Qualified Code(s): I10 - Essential (primary) hypertension (5) COPD (chronic obstructive pulmonary disease) Priority: Secondary Status: Chronic Comments: No acute exacerbation. Continue home medications. Qualifiers: COPD type: unspecified COPD Qualified Code(s): J44.9 - Chronic obstructive pulmonary disease, unspecified (6) Coronary artery disease Priority: Secondary Status: Chronic Comments: Plan as above. Continue statin and beta quyen. Continue DAPT for one year. Qualifiers: Coronary Disease-Associated Artery/Lesion type: [place] artery [place] vs. transplanted heart: [place] heart Associated angina: angina presence unspecified Qualified Code(s): I25.10 - Atherosclerotic heart disease of [place] coronary artery without angina pectoris - Discharge Medications Home Medications: ALPRAZolam [Xanax 1 MG Tablet] 1 mg PO TID 06/29/15 [History] Albuterol Sulfate [Albuterol Inhaler] 1 - 2 puff IH Q6HR PRN 06/29/15 [History] Atorvastatin [Lipitor] 40 mg PO DAILY 06/29/15 [History] Mirabegron [Myrbetriq] 50 mg PO DAILY 06/29/15 [History] Nitroglycerin [Nitrostat] 0.4 mg SL PRN PRN 08/19/15 [History] Simethicone [Gas-X] 80 mg PO TID #21 tab.chew 12/29/15 [Rx] Aspirin 81 mg PO DAILY 09/12/16 [History] Mirtazapine [Remeron] 15 mg PO HS 09/12/16 [History] OxyCODONE/APAP 5/325 [Percocet 5/325 MG] 1 tab PO Q6HR PRN 09/12/16 [History] Pantoprazole Sodium [Protonix] 20 mg PO DAILY 09/12/16 [History] Metoprolol XL (24 HR) Succ [Toprol Xl] 12.5 mg PO DAILY #30 tab.er.24h 09/14/16 [Rx] Ticagrelor [Brilinta] 90 mg PO BID #60 tablet 09/14/16 [Rx] Allergies/Adverse Reactions: Allergies cephalexin [From Keflex] Allergy (Verified 12/25/15 11:12) Hives ciprofloxacin [From Cipro] Allergy (Verified 12/25/15 11:12) Hives clindamycin Allergy (Verified 12/24/15 19:52) Rash meperidine [From Demerol] Allergy (Verified 12/24/15 19:52) Rash Penicillins Allergy (Verified 12/24/15 19:52) Rash sulfamethoxazole [From Bactrim] Allergy (Verified 12/24/15 19:52) Rash trimethoprim [From Bactrim] Allergy (Verified 12/24/15 19:52) Rash bupropion Adverse Reaction (Verified 12/24/15 19:52) Dizziness Date of admission: 10/03/16 07:59 Primary care physician: German Padilla MD Discharging clinician: Christina Madison Anticipated date of discharge: 10/03/16 - Patient Status Disposition: Home, Self-Care Functional capacity at discharge: independent ambulation Overall status at discharge: patient is back to baseline - Discharge Instructions Follow Up With: German Padilla MD [Primary Care Provider] - Additional Instructions: Follow-up with their primary care physician and Dr. Liz as scheduled Please return to the emergency department as needed for any other problems or concerns. Take Gas-X 30 minutes prior to eating. se Gas-X 30 minutes before meals. 1.) Avoid chewing gum or sucking on hard candies (especially sugarless gum or dietetic candies that contain sorbitol). 2.) Eliminate carbonated beverages and reduce foods containing high-fructose corn syrup from your diet. 3.) Avoid milk and milk products, such as soft cheeses 4.) Eat less gas-producing foods such as: Vegetables: brussel sprouts, broccoli, bagels, bananas, cabbage, cauliflower, cucumbers,carrots, celery and onion. Or when eating such foods, you may consider trying ynov-ofm-fmlfkse gas relief medicines, which may help breakdown the non-absorbable carbohydrates found in these foods. 5.) Exercise helps to stimulate the passage of gas through the digestive tract, consider walking. 6.) Consider trying ykfd-hcf-vmhngpe gas relief medicines such as Activated charcoal one tablet with meals or Beano 1-2 tablets or 5-10 drops with meals or Gas-X 1 tablet three times a day with meals or bismuth subsalicylate 524 mg three times a day with meals as needed. Resume taking her other home medications. - Diet and Activity Activity: increase activity as tolerated Diet: advance to your usual diet Hospital course: Mr. Champion is a 56 year old male who presented to the emergency department continued epigastric pain. He was concerned, considering the last time he had this pain, he ended up getting an LHC and stent. He reports that he has had the same pain for one year. He is tender in the epigastric area. He describes a very specific area of tenderness and pain. His abdomen is distended, however imaging shows no obstruction or free air or free fluid. He reports his pain as 8/10 and appears to be short of breath with distention. He has had multiple tests by GI and he was even seen by cardiology and GI while he was here. Both have signed off. He has been taking medications that were given to him by Dr. Liz , he says that they immediately caused him to have bowel movements. I have also increased his simethicone. He will take it before meals, as well as his Carafate. GI reports that he has undergone extensive workups and there is no explanation for his abdominal pain. He has had testing in June and December of last year both were normal. We will increase his home omeprazole to 40 mg twice a day. GI has given a list of suggestions to decrease the distention and bloating. Cardiology has signed off and recommend DAPT for a year uninterrupted, continue statin and beta quyen. No further testing is needed. Labs and vital signs have been within normal limits. He will need to follow up with primary care and GI for further outpatient testing. GI has ordered a test that has to be done first thing in the morning patient must be nothing by mouth after midnight. Primary nurse made FISH LIVER SORTER aware. - Time Spent with Patient Total time spent providing and/or coordinating discharge services: - Constitutional Vitals: Temp Pulse Resp BP Pulse Ox 97.8 F 70 20 127/82 95 10/03/16 15:47 10/03/16 15:47 10/03/16 15:47 10/03/16 15:47 10/03/16 15:47 General appearance: Present: cooperative, A&O X 3, pleasant, severe distress, answers questions appropriately - Head Head exam: Present: normal inspection - Eye Eye exam: Present: normal appearance, conjuntiva pink - ENT ENT exam: Present: mucous membranes moist, normal exam - Neck Neck exam general surgery: Present: normal inspection. Absent: lymphadenopathy , tenderness - Respiratory Respiratory exam: Present: decreased breath sounds, CTAB. Absent: rales, respiratory distress, rhonchi, stridor, wheezes, tachypnea - Cardiovascular Cardiovascular exam: Present: RRR, +S1, +S2. Absent: clicks, systolic murmur - GI/Abdominal GI/Abdominal exam: Present: normal bowel sounds, soft. Absent: hepatomegaly, tenderness - Extremities Exam Extremities exam: Present: normal inspection, warm, radial pulses palpable and symetrical. Absent: pedal edema, tenderness - Neurological Exam Neurological exam: Present: alert, oriented X3, no focal deficits. Absent: facial droop, speech deficit
[2016-10-03] MEDS ORDERED: Metoclopramide 10 MG/2 ML VIAL IVP PRN (18:05)
[2016-10-04] MEDS: *HR* OxyCODONE/APAP 5/325 TABLET PO PRN (02:25)
[2016-10-04] MEDS: Sucralfate 1 GM TABLET PO SCH (06:27)
[2016-10-04] MEDS: Simethicone 80 MG TAB.CHEW PO SCH (06:27)
[2016-10-04 07:46] VITALS: BP 111/81
[2016-10-04] MEDS: Metoprolol XL (24 HR) Succ 25 MG TAB.ER.24H PO SCH (09:20)
[2016-10-04] MEDS: Aspirin Enteric Coated 81 MG Tablet PO SCH (09:21)
[2016-10-04] MEDS: Sennosides/Docusate Sodium TABLET PO SCH (09:21)
[2016-10-04] MEDS: *HR* Ticagrelor 90 MG TABLET PO SCH (09:22)
--- NOTE | 2016-10-04 11:08 | Internal Med Progress Note ---
Date of Encounter: 10/04/16 Time of Encounter: 09:15 - Assessment and plan (1) Epigastric pain Current Visit: Yes Status: Chronic Assessment and plan: Epigastric pain continues today. Pt is up, amb around room. Abd remains distended. He was seen by GI yesterday, recommend increasing Omeprazole to 40mg po bid, continue Simethicone 30min AC, and carafate 1000mg po QID before meals. Pt and discussed changing diet as recommended by GI, pt seemed agreeable. SIBO test is ordered and must be done outpatient. Pt is aware and has the order sheet that was given by lab. Pt will follow up with DR. Liz and PCP as scheduled. (2) Elevated troponin Current Visit: Yes Status: Acute Assessment and plan: Mildly elevated, highest at 0.07. Pt had PCI/DENG to mid LAD on 09/13/16. Echo on same date EF 55-60%, mild mild LV hypertrophy, Normal RV, borderline mitral stenosis, trace MR, and mild-moderate pulmonary htn. Pt had LHC on same date that showed severe 1 vessel disease, stent placed. Cardiology has evaluated and signed off. (3) History of mitral valve replacement Current Visit: No Status: Chronic (4) HTN (hypertension) Current Visit: Yes Status: Chronic Assessment and plan: Well controlled. Continue home medications. Qualifiers: Hypertension type: essential hypertension Qualified Code(s): I10 - Essential (primary) hypertension (5) COPD (chronic obstructive pulmonary disease) Current Visit: Yes Status: Chronic Assessment and plan: No acute exacerbaton. Continue home medications. Qualifiers: COPD type: unspecified COPD Qualified Code(s): J44.9 - Chronic obstructive pulmonary disease, unspecified (6) Coronary artery disease Current Visit: Yes Status: Chronic Assessment and plan: Stable. Continue home medications. Aspirin, Lipitor and Metoprolol Qualifiers: Coronary Disease-Associated Artery/Lesion type: [place] artery [place] vs. transplanted heart: [place] heart Associated angina: angina presence unspecified Qualified Code(s): I25.10 - Atherosclerotic heart disease of [place] coronary artery without angina pectoris - Time Spent With Patient less than 15 minutes - Subjective Interval history: Patient was seen and assessed this morning and about 8:10 AM. Patient reports epigastric pain 3 days. States he has had pain for about a year, however is in really bad for the last 3 days. He says this is same pain that he had earlier this month when he was taken to [facility] and had a cardiac stent. Placed. He does report nausea and vomiting 2 this morning, nausea and vomiting awakened him during the night. He says the pain is 6/10 in the epigastric area with radiation, describes it as sharp. States that he seemed was given a pill he is not sure what it was from Dr. Hester he has been taking, he had 2 bowel movements yesterday and multiple episodes of diarrhea after after taking the pill. He is a patient of Dr. Liz and was scheduled to have an outpatient EGD tomorrow. He says he has had reflux symptoms and abdominal pain for at least 6 months to a year. He is a nonsmoker last 2 years. The pain is constant, he tells me the pain is worse with walking, he does report shortness of breath with the pain, and Percocet makes the pain better. Patient is very poor historian with what appears to be limited knowledge of his medications or medical history. - Constitutional Vitals: Temp Pulse Resp BP Pulse Ox 97.6 F 66 16 111/81 95 10/04/16 07:45 10/04/16 07:45 10/04/16 07:45 10/04/16 07:45 10/04/16 07:45 General appearance: Present: cooperative, A&O X 3, pleasant, no acute distress, severe distress, answers questions appropriately - Head Head exam: Present: normal inspection - Eye Eye exam: Present: normal appearance, conjuntiva pink - ENT ENT exam: Present: mucous membranes moist, normal external ear exam - Respiratory Respiratory exam: Present: decreased breath sounds, CTAB. Absent: rales, rhonchi, wheezes - Cardiovascular Cardiovascular exam: Present: RRR, +S1, +S2. Absent: clicks, diastolic murmur, gallop, systolic murmur - GI/Abdominal GI/Abdominal exam: Present: distended, firm, normal bowel sounds, tenderness Additional comments: Tender right/mid/epigastric area - Extremities Exam Extremities exam: Present: normal inspection, warm. Absent: mottling, pedal edema, tenderness - Neurological Exam Neurological exam: Present: alert, normal gait, oriented X3, no focal deficits. Absent: facial droop, speech deficit - Skin Skin exam: Present: dry, normal color, warm. Absent: rash Internal Medicine: Result - Labs CBC & Chem 7: 10/03/16 03:04 10/03/16 03:04 - ABG Interpretation ABG results: PT/INR, D-dimer PT 11.4 Seconds (9.4-12.1) 10/01/16 20:25 Consult Discharge Plan - Plan Instructions: Sucralfate (By mouth), Omeprazole (By mouth) Additional Instructions: Follow-up with their primary care physician and Dr. Liz as scheduled Please return to the emergency department as needed for any other problems or concerns. Take Gas-X 30 minutes prior to eating. se Gas-X 30 minutes before meals. 1.) Avoid chewing gum or sucking on hard candies (especially sugarless gum or dietetic candies that contain sorbitol). 2.) Eliminate carbonated beverages and reduce foods containing high-fructose corn syrup from your diet. 3.) Avoid milk and milk products, such as soft cheeses 4.) Eat less gas-producing foods such as: Vegetables: brussel sprouts, broccoli, bagels, bananas, cabbage, cauliflower, cucumbers,carrots, celery and onion. Or when eating such foods, you may consider trying [id number] gas relief medicines, which may help breakdown the non-absorbable carbohydrates found in these foods. 5.) Exercise helps to stimulate the passage of gas through the digestive tract, consider walking. 6.) Consider trying [id number] gas relief medicines such as Activated charcoal one tablet with meals or Beano 1-2 tablets or 5-10 drops with meals or Gas-X 1 tablet three times a day with meals or bismuth subsalicylate 524 mg three times a day with meals as needed. Resume taking her other home medications. Referrals: German Padilla MD [Primary Care Provider] - 10/10/16 10:00 am Prescriptions: Omeprazole [PriLOSEC] 40 mg PO BID #60 cap Sucralfate [Carafate] 1 gm PO QIDAC #120 tablet
== END 2016-10-04 11:06 | disposition home or self-care (01) | DRG 392 ==
LOC: EMEROO 19:37 → 3BNU 19:37
PROVIDERS: ADMIT Family Medicine; ATTEND Registered Nurse

== ENCOUNTER 2017-07-02 13:44 | Observation (INO) ==
[2017-07-02] MEDS ORDERED: Aspirin 81 MG TAB.CHEW PO ONE (13:55)
[2017-07-02] MEDS ORDERED: Nitroglycerin 0.4 MG TAB.SUBL SL ONE (13:55)
--- NOTE | 2017-07-02 14:02 | Emergency Department Note ---
Disposition Clinical Impression: Epigastric pain Chest pain Qualifiers: Chest pain type: unspecified Qualified Code(s): R07.9 - Chest pain, unspecified Disposition: Admitted As Inpatient Condition: Undetermined Forms: ED Satisfaction Letter Time of Disposition: 15:52 Chest Pain HPI - General Chief Complaint: ED Chest Pain Stated Complaint: epigastric pain, dyspnea Time Seen by Provider: 07/02/17 13:51 Source: patient, family Mode of arrival: ambulatory Limitations: no limitations Vital Signs Reviewed: Yes Nursing Notes Reviewed: Yes - History of Present Illness HPI Narrative: 57-year-old male with history of 5 cardiac stents, arrives to emergency room complaining of epigastric pain, abdominal distention, nausea. The patient states that the epigastric pain is similar to his previous MIs. The patient states his abdominal distention and pain is unusual for him. He denies any other complaints at this time other than associated shortness of breath. Severity scale (1-10): 9 - Related Data Home Medications Medication Instructions Recorded Confirmed ALPRAZolam [Xanax 1 MG Tablet] 1 mg PO TID 06/29/15 10/02/16 Albuterol Sulfate [Albuterol 1 - 2 puff IH Q6HR PRN 06/29/15 10/02/16 Inhaler] Atorvastatin [Lipitor] 40 mg PO DAILY 06/29/15 10/02/16 Mirabegron [Myrbetriq] 50 mg PO DAILY 06/29/15 10/02/16 Nitroglycerin [Nitrostat] 0.4 mg SL PRN PRN 08/19/15 10/02/16 Aspirin 81 mg PO DAILY 09/12/16 10/02/16 Mirtazapine [Remeron] 15 mg PO HS 09/12/16 10/02/16 OxyCODONE/APAP 5/325 [Percocet 1 tab PO Q6HR PRN 09/12/16 10/02/16 5/325 MG] Previous Rx's Medication Instructions Recorded Simethicone [Gas-X] 80 mg PO TID #21 tab.chew 12/29/15 Metoprolol XL (24 HR) Succ [Toprol 12.5 mg PO DAILY #30 tab.er.24h 09/14/16 Xl] Ticagrelor [Brilinta] 90 mg PO BID #60 tablet 09/14/16 Omeprazole [PriLOSEC] 40 mg PO BID #60 cap 10/04/16 Sucralfate [Carafate] 1 gm PO QIDAC #120 tablet 10/04/16 Allergies Allergy/AdvReac Type Severity Reaction Status Date / Time cephalexin [From Keflex] Allergy Hives Verified 07/02/17 13:49 ciprofloxacin [From Cipro] Allergy Hives Verified 07/02/17 13:49 clindamycin Allergy Rash Verified 07/02/17 13:49 meperidine [From Demerol] Allergy Rash Verified 07/02/17 13:49 Penicillins Allergy Rash Verified 07/02/17 13:49 sulfamethoxazole Allergy Rash Verified 07/02/17 13:49 [From Bactrim] trimethoprim [From Bactrim] Allergy Rash Verified 07/02/17 13:49 bupropion AdvReac Dizziness Verified 07/02/17 13:49 All systems ED: reviewed and negative except as stated. Constitutional: Denies: fever, chills, weakness ENT ED: Denies: congestion Cardiovascular: Reports: chest pain, dyspnea on exertion. Denies: edema, syncope Respiratory: Reports: dyspnea. Denies: cough, wheezes, hemoptysis, sputum production Gastrointestinal: Reports: abdominal pain, nausea. Denies: vomiting, diarrhea, constipation, hematemesis, melena, hematochezia Genitourinary: Denies: urgency, dysuria Musculoskeletal: Denies: back pain, neck pain, arthralgia, myalgia Neurological: Denies: headache, weakness Chest Pain PMH - Past Medical History Medical history: Reports: COPD, coronary artery disease, CVA, GERD, hyperlipidemia, hypertension, kidney stones, myocardial infarction, peripheral artery disease, renal disease, other Surgical history: Reports: angioplasty/stent, cholecystectomy, orthopedic, other , vasectomy, other (Valve replacement) Psychiatric history: Reports: no psych history - Social History Smoking Status: Former smoker Alcohol use: Reports: none Drug use: Reports: none Physical Exam - General Limitations: no limitations General appearance: alert, in no apparent distress - Head Head exam: atraumatic, normocephalic, normal inspection - Eye Eye exam: Present: normal appearance, PERRL, EOMI - ENT ENT exam: normal exam, normal oropharynx, mucous membranes moist - Neck Neck exam: Present: normal inspection, full ROM, trachea midline - Chest Chest inspection: Present: normal inspection, symmetric chest wall rise - Respiratory Respiratory exam: Present: normal lung sounds bilaterally - Cardiovascular Cardiovascular exam: Present: regular rate, normal rhythm, normal heart sounds - Abdominal Exam Abdominal exam: Present: soft, tenderness (epigastric), distention. Absent: guarding, rebound, rigidity, Parrish's sign, Rovsing's sign, tenderness at McBurney's Point, pulsatile mass, hernia Course Vital Signs Temperature 97.7 F 07/02/17 13:44 Pulse Rate 64 07/02/17 13:44 Respiratory Rate 18 07/02/17 13:44 Blood Pressure 172/75 07/02/17 13:44 O2 Sat by Pulse Oximetry 98 07/02/17 13:44 Temperature 97.7 F 07/02/17 13:44 Pulse Rate 62 07/02/17 15:43 Respiratory Rate 20 07/02/17 15:43 Blood Pressure 147/92 07/02/17 15:43 O2 Sat by Pulse Oximetry 97 07/02/17 15:43 Oxygen Delivery Oxygen Delivery Room Air Chest Pain - MDM Narrative Medical decision making narrative: Workup in the emergency department demonstrates no acute process. Given the patient's history of previous MIs and the similarity between this in the previous PA, we will admit the patient to the hospital for further care. The patient is resting comfortably at this time. - Medical Records Medical records reviewed: Yes I reviewed the patient's medical records. - Lab Data Lab results reviewed: Yes I reviewed the patient's lab results. Result diagrams: 07/02/17 14:29 07/02/17 14:29 Lab Results 07/02/17 07/02/17 07/02/17 Range/Units 14:29 14:29 14:29 WBC (4.3-11.1) K/mcL RBC (4.19-5.50) M/mcL Hgb (12.9-16.9) g/dL Hct (37.5-50.1) % MCV (83.0-100.0) fL MCH (28.0-33.3) pg MCHC (31.6-35.5) g/dL RDW (11.5-14.5) % Plt Count (140-400) K/mcL MPV (9.4-12.4) fL Immature Gran % (0-4) % Seg Neutrophils % % Lymphocytes % % Monocytes % % Eosinophils % % Basophils % % Neutrophils # (1.6-8.9) K/mcL Lymphocytes # (0.6-4.6) K/mcL Monocytes # (0.0-1.3) K/mcL Eosinophils # (0.0-0.6) K/mcL Basophils # (0.0-0.2) K/mcL PT 10.9 (9.4-12.1) Seconds INR 1.0 APTT 29.7 (26.0-36.0) Seconds Sodium (136-145) mEq/L Potassium (3.5-5.1) mEq/L Chloride (98-107) mEq/L Carbon Dioxide (23-29) mEq/L BUN (6-20) mg/dL Creatinine (0.70-1.30) mg/dL Est GFR ( Amer) (> 60) Est GFR (Non-Af Amer) (> 60) BUN/Creatinine Ratio (6-26) Glucose (70-105) mg/dL Calculated Osmolality (280-300) Calcium (8.6-10.3) mg/dL Total Bilirubin 0.4 (0.3-1.0) mg/dL Direct Bilirubin 0.2 (0.0-0.2) mg/dL Indirect Bilirubin 0.2 (0.0-1.2) mg/dL AST 20 (13-39) Units/L ALT 17 (7-52) Units/L Alkaline Phosphatase 91 (34-104) Units/L Troponin I (< 0.04) ng/mL B-Natriuretic Peptide 63 (Less than 100) pg/mL Serum Total Protein 6.7 (6.4-8.9) g/dL Albumin 4.1 (3.5-5.7) g/dL Globulin 2.6 (2.4-3.5) g/dL Albumin/Globulin Ratio 1.6 (1.1-2.2) Lipase (11-82) Units/L 07/02/17 07/02/17 07/02/17 Range/Units 14:29 14:29 14:29 WBC 6.3 (4.3-11.1) K/mcL RBC 4.16 L (4.19-5.50) M/mcL Hgb 12.4 L (12.9-16.9) g/dL Hct 37.9 (37.5-50.1) % MCV 91.1 (83.0-100.0) fL MCH 29.8 (28.0-33.3) pg MCHC 32.7 (31.6-35.5) g/dL RDW 14.2 (11.5-14.5) % Plt Count 162 (140-400) K/mcL MPV 11.6 (9.4-12.4) fL Immature Gran % 0.3 (0-4) % Seg Neutrophils % 71.0 % Lymphocytes % 19.1 % Monocytes % 7.8 % Eosinophils % 1.6 % Basophils % 0.2 % Neutrophils # 4.5 (1.6-8.9) K/mcL Lymphocytes # 1.2 (0.6-4.6) K/mcL Monocytes # 0.5 (0.0-1.3) K/mcL Eosinophils # 0.1 (0.0-0.6) K/mcL Basophils # 0.0 (0.0-0.2) K/mcL PT (9.4-12.1) Seconds INR APTT (26.0-36.0) Seconds Sodium 139 (136-145) mEq/L Potassium 3.6 (3.5-5.1) mEq/L Chloride 110 H (98-107) mEq/L Carbon Dioxide 23 (23-29) mEq/L BUN 16 (6-20) mg/dL Creatinine 0.86 (0.70-1.30) mg/dL Est GFR ( Amer) > 60 (> 60) Est GFR (Non-Af Amer) > 60 (> 60) BUN/Creatinine Ratio 19 (6-26) Glucose 149 H (70-105) mg/dL Calculated Osmolality 292 (280-300) Calcium 9.0 (8.6-10.3) mg/dL Total Bilirubin (0.3-1.0) mg/dL Direct Bilirubin (0.0-0.2) mg/dL Indirect Bilirubin (0.0-1.2) mg/dL AST (13-39) Units/L ALT (7-52) Units/L Alkaline Phosphatase (34-104) Units/L Troponin I < 0.03 (< 0.04) ng/mL B-Natriuretic Peptide (Less than 100) pg/mL Serum Total Protein (6.4-8.9) g/dL Albumin (3.5-5.7) g/dL Globulin (2.4-3.5) g/dL Albumin/Globulin Ratio (1.1-2.2) Lipase 32 (11-82) Units/L - Radiology Data Radiology results reviewed: Yes I reviewed the patient's radiology results. Chest X-Ray 07/02/17 13:55 IMPRESSION: No evidence of acute cardiopulmonary disease. D/ / 07/02/2017 14:51:23 Rajinder Luther MD / cholo Interpreting Provider: Rajinder Luther MD Abdomen/Pelvis CT 07/02/17 13:57 IMPRESSION: No acute intra-abdominal or intrapelvic abnormality noted on noncontrast imaging. D/ / 07/02/2017 14:34:41 Robbie Rudolph MD / cholo Interpreting Provider: Robbie Rudolph MD - EKG Data EKG attestation: Yes I reviewed and interpreted this EKG. EKG results narrative: Heart rate 64. Normal sinus rhythm. No ST elevation or ST depression. Non- specific changes noted from EKG on 10/01/2016.
[2017-07-02 14:44] LABS: Basophils % 0.2 %; Eosinophils # 0.1 K/mcL (0.0-0.6); Eosinophils % 1.6 %; Hematocrit 37.9 % (37.5-50.1); Hemoglobin 12.4 g/dL (12.9-16.9); Immature Granulocytes % 0.3 % (0-4); Lymphocytes # 1.2 K/mcL (0.6-4.6); Lymphocytes % 19.1 %; Mean Corpuscular HGB Conc 32.7 g/dL (31.6-35.5); Mean Corpuscular Hemoglobin 29.8 pg (28.0-33.3); Mean Corpuscular Volume 91.1 fL (83.0-100.0); Mean Platelet Volume 11.6 fL (9.4-12.4); Monocytes # 0.5 K/mcL (0.0-1.3); Monocytes % 7.8 %; Neutrophils # 4.5 K/mcL (1.6-8.9); Platelet Count 162 K/mcL (140-400); Red Blood Count 4.16 M/mcL (4.19-5.50); Red Cell Distribution Width 14.2 % (11.5-14.5)
--- NOTE | 2017-07-02 14:49 | Emergency Department Note ---
START Narrative - START START: I examined this patient and my medical decision-making was reviewed with the Resident Physician. I agree with the documented findings, disposition and treatment plan as described except to the extent set forth below. 57 year old male presents with epigastric pain and sttes that he was a chronic alcohol drinker but hasnt drank alcohol in 8 years. PAtine tstates that he also has 6 cardiac stents and this is the exact presentation as when his last stent collapsed and needed replaced. Patient is also experiencing exertional dyspnea and states that is progressively getting worse over the past one week. We will continue workup with ABCT for epigastric pain and cardiopulmonary workup and likely admit ot mediince.
[2017-07-02 14:50] LABS: Prothrombin Time 10.9 Seconds (9.4-12.1)
[2017-07-02 14:52] LABS: Activated Partial Thrombo Time 29.7 Seconds (26.0-36.0)
[2017-07-02 15:08] LABS: Albumin 4.1 g/dL (3.5-5.7); Albumin/Globulin Ratio 1.6 (1.1-2.2); Bilirubin,Direct 0.2 mg/dL (0.0-0.2); Bilirubin,Indirect 0.2 mg/dL (0.0-1.2); Bilirubin,Total 0.4 mg/dL (0.3-1.0); Globulin 2.6 g/dL (2.4-3.5); Total Protein 6.7 g/dL (6.4-8.9)
[2017-07-02 15:09] LABS: Troponin I < 0.03 ng/mL (< 0.04)
[2017-07-02 15:12] LABS: BUN/Creatinine Ratio 19 (6-26); Blood Urea Nitrogen 16 mg/dL (6-20); Carbon Dioxide 23 mEq/L (23-29); Chloride 110 mEq/L (98-107); Glucose 149 mg/dL (70-105); Osmolality,Calculated 292 (280-300); Potassium 3.6 mEq/L (3.5-5.1); Sodium 139 mEq/L (136-145); eGFR For African Americans > 60 (> 60); eGFR For Non-African Americans > 60 (> 60)
[2017-07-02] MEDS ORDERED: GI Cocktail 40 ML EACH PO ONE (15:29)
[2017-07-02] MEDS ORDERED: Famotidine 20 MG/2 ML VIAL IVP ONE (15:29)
--- NOTE | 2017-07-02 16:45 | Internal Med History&Physical ---
Date of Encounter: 07/02/17 Time of Encounter: 16:41 Assessment and Plan (1) Epigastric pain Current visit: Yes Status: Chronic Persistent epigastric pain with abdominal distention and hyperactive bowel sounds CT of the abdomen is unremarkable lipase is normal we will consult GI for further evaluation exam is suggestive of possible bowel obstruction but his CT abdomen is negative (2) Abdominal bloating Current visit: No Status: Acute Abdominal distention with hyperactive bowel sounds but CT of the abdomen is negative (3) COPD (chronic obstructive pulmonary disease) Current visit: No Status: Chronic Chronic but no active wheezing Qualifiers: COPD type: unspecified COPD Qualified Code(s): J44.9 - Chronic obstructive pulmonary disease, unspecified (4) Coronary artery disease Current visit: No Status: Chronic Patient has had multiple angioplasty so far troponin is negative will trend troponin Qualifiers: Coronary Disease-Associated Artery/Lesion type: [place] artery [place] vs. transplanted heart: [place] heart Associated angina: angina presence unspecified Qualified Code(s): I25.10 - Atherosclerotic heart disease of [place] coronary artery without angina pectoris (5) HTN (hypertension) Current visit: No Status: Chronic Chronic and not well-controlled probably contribution of abdominal pain Qualifiers: Hypertension type: essential hypertension Qualified Code(s): I10 - Essential (primary) hypertension (6) Hyperlipidemia Current visit: No Status: Chronic Chronic recheck in a.m. Qualifiers: Hyperlipidemia type: pure hypercholesterolemia Qualified Code(s): E78.00 - Pure hypercholesterolemia, unspecified; E78.0 - Pure hypercholesterolemia (7) Nicotine dependence with nicotine-induced disorder Current visit: No Status: Chronic Chronic Qualifiers: Nicotine product type: cigarettes Qualified Code(s): F17.219 - Nicotine dependence, cigarettes, with unspecified nicotine-induced disorders Internal Medicine - H&P: HPI Chief complaint: epigastric pain Admitted From: Emergency Dept Plans for Post Hospital Care: Home History of present illness: Mr. Champion is a 57 year old male Patient with history of CAD has had multiple stent about 6 stents in past COPD, hypertension, mitral valve repair, CABG, chronic pain especially in the abdomen, CVA, GERD, kidney stone, PVD CK D . Patient present with the epigastric pain also abdominal distention and some nausea. exertional shortness of breath which is getting worse in the last week. Patient is concerned that the epigastric pain is similar to his prior symptoms where he had a stent placed. Evaluation in the ER lipase was normal CT of abdomen was unremarkable patient has also seen Dr. Liz in the past and underwent EGD last year. So far troponin is negative BNP is normal on exam patient abdomen is distended from and hyperactive no rebound Past Med Surg Social Fam HX - Past Medical History Medical history: COPD, coronary artery disease, CVA, GERD, hyperlipidemia, hypertension, kidney stones, myocardial infarction, peripheral artery disease, renal disease, other Psychiatric history: no psych history - Past Surgical History Surgical History: angioplasty/stent, cholecystectomy, orthopedic, other, vasectomy, other (Valve replacement) - Social History Smoking Status: Former smoker Smokeless Tobacco Status: No Alcohol use: none Drug use: none - Family History Father Living Status: Still Living Hx Family Cardiac Disorders: Yes Hx Family Respiratory Disorders: Yes (COPD) Hx Family Cancer: Yes Hx Family GI Disorders: Yes (Ulcers) Hx Family Endocrine Disorder: No Hx Family Neuromuscular Disorders: No Hx Family Neurologic Disorders: No Hx Family HEENT Disorders: No Hx Family Autoimmune Disorders: No Mother Living Status: Still Living Hx Family Cardiac Disorders: Yes (DC, stents) Hx Family Respiratory Disorders: No Hx Family Cancer: Yes (Stomach) Hx Family GI Disorders: No Hx Family Endocrine Disorder: Yes (DM) Hx Family Neuromuscular Disorders: No Hx Family Neurologic Disorders: No Hx Family HEENT Disorders: No Hx Family Autoimmune Disorders: No Internal Medicine - H&P: Meds Albuterol Sulfate [Albuterol Inhaler] 2 puff IH Q6HR PRN 06/29/15 [History] Mirabegron [Myrbetriq] 50 mg PO DAILY 06/29/15 [History] Nitroglycerin [Nitrostat] 0.4 mg SL Q5M PRN 08/19/15 [History] Simethicone [Gas-X] 80 mg PO TID #21 tab.chew 12/29/15 [Rx] Aspirin 81 mg PO DAILY 09/12/16 [History] Mirtazapine [Remeron] 15 mg PO HS 09/12/16 [History] Metoprolol XL (24 HR) Succ [Toprol Xl] 12.5 mg PO DAILY #30 tab.er.24h 09/14/16 [Rx] Ticagrelor [Brilinta] 90 mg PO BID #60 tablet 06/03/17 [Rx] ALPRAZolam [Xanax 0.5 MG Tablet] 0.5 mg PO BID 07/02/17 [History] Atorvastatin Calcium [Lipitor] 80 mg PO HS 07/02/17 [History] Docusate [Colace] 100 mg PO BID 07/02/17 [History] L. Acidophilus/Pectin, Smith [Acidophilus Probiotic Capsule] 1 each PO DAILY [History] Oxycodone HCl/Acetaminophen [Endocet 10-325 mg Tablet] 1 tab PO TID PRN [History] Pantoprazole Sodium [Protonix] 20 mg PO DAILY 07/02/17 [History] Tiotropium Fortine [Spiriva Respimat] 2 puff IH DAILY 07/02/17 [History] 3 Allergy/AdvReac Type Severity Reaction Status Date / Time cephalexin [From Keflex] Allergy Hives Verified 07/02/17 13:49 ciprofloxacin [From Cipro] Allergy Hives Verified 07/02/17 13:49 clindamycin Allergy Rash Verified 07/02/17 13:49 meperidine [From Demerol] Allergy Rash Verified 07/02/17 13:49 Penicillins Allergy Rash Verified 07/02/17 13:49 sulfamethoxazole Allergy Rash Verified 07/02/17 13:49 [From Bactrim] trimethoprim [From Bactrim] Allergy Rash Verified 07/02/17 13:49 bupropion AdvReac Dizziness Verified 07/02/17 13:49 All Systems PM: A 10-system review of systems was performed and is negative for pertinent findings except as documented above in the HPI. - Constitutional Constitutional: no chills, no fever(s), no night sweats - EENT Eyes: no change in vision, no discharge, no pain, no photophobia Ears: no ear discharge, no ear pain, no tinnitus Nose, mouth and throat: no dysphagia, no nasal discharge, no neck pain, no sore throat - Cardiovascular Cardiovascular ROS IM: chest pain, dyspnea on exertion - Respiratory Respiratory: no cough, no dyspnea, no wheezing, no excessive phlegm production - Gastrointestinal Gastrointestinal: bloating, nausea - Musculoskeletal Musculoskeletal ROS IM: no numbness, no tingling - Integumentary Integumentary IM: no rash, no unusual bruising - Neurological Neurological ROS: no confusion, no convulsions, no focal weakness, no numbness, no tingling, no tremor(s) - Constitutional Vitals: Temp Pulse Resp BP Pulse Ox 97.7 F 62 20 147/92 97 07/02/17 13:44 07/02/17 15:43 07/02/17 15:43 07/02/17 15:43 07/02/17 15:43 General appearance: Present: mild distress - Eye Eye exam: Present: PERRL, conjuntiva pink, sclera anicteric Pupils: Present: PERRL - Neck Neck exam general surgery: Present: supple, trachea midline. Absent: lymphadenopathy - Respiratory Respiratory exam: Present: rhonchi - Cardiovascular Cardiovascular exam: Present: RRR, +S1, +S2. Absent: diastolic murmur, gallop, rubs, systolic murmur - GI/Abdominal GI/Abdominal exam: Present: distended, firm, hyperactive bowel sounds - Extremities Exam Extremities exam: Present: warm, radial pulses palpable and symmetrical. Absent : calf tenderness, cyanotic, pedal edema Internal Med - H&P Results - Labs CBC & Chem 7: 07/02/17 14:29 07/02/17 14:29 Labs: Short CBC 07/02/17 Range/Units 14:29 WBC 6.3 (4.3-11.1) K/mcL Hgb 12.4 L (12.9-16.9) g/dL Hct 37.9 (37.5-50.1) % Plt Count 162 (140-400) K/mcL Neutrophils # 4.5 (1.6-8.9) K/mcL BMP 07/02/17 14:29 Sodium 139 Potassium 3.6 Chloride 110 H Carbon Dioxide 23 BUN 16 Creatinine 0.86 Glucose 149 H Calcium 9.0 Cardiac Enzymes 07/02/17 Range/Units 14:29 Troponin I < 0.03 (< 0.04) ng/mL Liver Function 07/02/17 Range/Units 14:29 Total Bilirubin 0.4 (0.3-1.0) mg/dL Direct Bilirubin 0.2 (0.0-0.2) mg/dL AST 20 (13-39) Units/L ALT 17 (7-52) Units/L Alkaline Phosphatase 91 (34-104) Units/L Albumin 4.1 (3.5-5.7) g/dL - Impressions ITS Impressions Chest X-Ray 07/02/17 13:55 IMPRESSION: No evidence of acute cardiopulmonary disease. D/ / 07/02/2017 14:51:23 Rajinder Luther MD / cholo Interpreting Provider: Rajinder Luther MD Abdomen/Pelvis CT 07/02/17 13:57 IMPRESSION: No acute intra-abdominal or intrapelvic abnormality noted on noncontrast imaging. D/ / 07/02/2017 14:34:41 Robbie Rudolph MD / cholo Interpreting Provider: Robbie Rudolph MD
[2017-07-02] MEDS ORDERED: Acetaminophen 325 MG TABLET PO PRN (16:51)
[2017-07-02] MEDS ORDERED: Naloxone 0.4 MG/ML INJ IVP PRN (16:51)
[2017-07-02] MEDS ORDERED: traMADol 50 MG TABLET PO PRN (16:51)
[2017-07-02] MEDS ORDERED: *HR* OxyCODONE/APAP 10/325 TABLET PO PRN (16:52)
[2017-07-02] MEDS ORDERED: Nitroglycerin 0.4 MG TAB.SUBL SL PRN (16:52)
[2017-07-02] MEDS: 0.9 % Sodium Chloride 1,000 ML IVC SCH (21:30)
[2017-07-02] MEDS: *HR* Ticagrelor 90 MG TABLET PO SCH (21:32)
[2017-07-02] MEDS: Simethicone 80 MG TAB.CHEW PO SCH (21:32)
[2017-07-02] MEDS: ALPRAZolam 0.5 MG TABLET PO SCH (21:32)
[2017-07-03 06:00] LABS: Hematocrit 37.7 % (37.5-50.1); Hemoglobin 12.2 g/dL (12.9-16.9); Mean Corpuscular HGB Conc 32.4 g/dL (31.6-35.5); Mean Corpuscular Hemoglobin 29.8 pg (28.0-33.3); Mean Platelet Volume 11.9 fL (9.4-12.4); Platelet Count 149 K/mcL (140-400); Red Cell Distribution Width 14.3 % (11.5-14.5)
[2017-07-03 06:10] LABS: Alanine Aminotransferase 17 Units/L (7-52); Albumin 3.5 g/dL (3.5-5.7); Albumin/Globulin Ratio 1.3 (1.1-2.2); Alkaline Phosphatase 78 Units/L (34-104); Aspartate Amino Transferase 19 Units/L (13-39); BUN/Creatinine Ratio 17 (6-26); Bilirubin,Total 0.5 mg/dL (0.3-1.0); Blood Urea Nitrogen 16 mg/dL (6-20); Calcium 8.3 mg/dL (8.6-10.3); Carbon Dioxide 24 mEq/L (23-29); Chloride 111 mEq/L (98-107); Chol/HDL Ratio 6.4 (0-4.9); Cholesterol 179 mg/dL (< 200); Globulin 2.6 g/dL (2.4-3.5); Glucose 96 mg/dL (70-105); HDL Cholesterol 28 mg/dL (40-59); LDL Cholesterol,Calculated 131 mg/dL (0-99); Magnesium 1.9 mg/dL (1.6-2.6); Osmolality,Calculated 291 (280-300); Sodium 140 mEq/L (136-145); Total Protein 6.1 g/dL (6.4-8.9); Triglycerides 100 mg/dL (< 150); eGFR For African Americans > 60 (> 60); eGFR For Non-African Americans > 60 (> 60)
[2017-07-03] MEDS: Metoprolol XL (24 HR) Succ 25 MG TAB.ER.24H PO SCH (08:03)
[2017-07-03] MEDS: Lactobacillus 1 EACH CAP.SPRINK PO SCH (08:03)
[2017-07-03] MEDS: Simethicone 80 MG TAB.CHEW PO SCH ×3 (08:04→21:54)
[2017-07-03] MEDS: *HR* Ticagrelor 90 MG TABLET PO SCH ×2 (08:04→21:54)
[2017-07-03] MEDS: Aspirin 81 MG TAB.CHEW PO SCH (08:04)
[2017-07-03] MEDS: ALPRAZolam 0.5 MG TABLET PO SCH ×2 (08:04→21:54)
[2017-07-03] MEDS: 0.9 % Sodium Chloride 1,000 ML IVC SCH ×2 (08:12→19:28)
[2017-07-03] MEDS: Tiotropium 18 MCG inhalation IH SCH (08:26)
[2017-07-03] MEDS ORDERED: (Mirabegron [Myrbetriq] 50 MG) PO SCH (09:00)
--- NOTE | 2017-07-03 12:23 | Gastroenterology Consult Note ---
<Jaylyn Fernández - Last Filed: 07/03/17 12:15> Date of Encounter: 07/03/17 Time of Encounter: 09:45 - Assessment and plan (1) Epigastric pain Current Visit: Yes Status: Chronic Assessment and plan: Pt had extensive workup last year. Continue PPI. He is on brillinta for coronary stents placed 09/28 and can not be stopped at this time for EGD. Ct abdomen was unremarkable. Advise symptomatic treatment with simethicone for abdominal distention. He needs SIBO testing but cannot be done as inpatient. Will schedule when discharged. Pt should follow a low FODMAP diet. (2) Abdominal bloating Current Visit: No Status: Acute - Time Spent With Patient Total time spent is greater than 50% in coordination of care (as documented) at patient's floor/unit and/or counseling patient: GI History of Present Illness - Data of Consult Patient: known to practice within the last 3 years Consult date: 07/03/17 Requesting Physician: Barbie Villagomez MD - Consult Narrative Reason for consult: epigastric pain History of present illness: Mr. Champion is a 57 year old male Mr. Champion is a 57 year old male. Patient with history of PMHx of COPD, CAD, CVA, GERD, Boudreaux's esophagus HLD, HTN, [place], CAD, COPD, hypertension, mitral valve repair, CABG, chronic pain especially in the abdomen, CVA, GERD, kidney stone, PVD CK D. Patient was seen by Dr iLz last year and had extensive work up for epigastric pain. He also had coronary stents placed 09/28. He presents with epigastric pain, nausea, abdominal distention and shortness of breath. He admits to abdominal bloating any time he eats, regardless of the foods. He denies constipation states he had small bowel movement this am and 2 BMs yesterday. He has GERD but states is controlled on protonix. He reports occasional diarrhea. He denies any bloody or tarry stools. He also complains of abdominal cramping with BMs. He was evaluated by the ER, and lipase was normal, EBC and LFTs WNL. CT of abdomen was unremarkable. So far troponin is negative BNP is normal. Procedures: Upper EUS 06/13/2016 Dr. Liz: Normal Enteroscopy 12/28/2015 Dr. Liz: Normal esophagus, stomach, examined duodenum, and examined portion of jejunum was normal. Colonoscopy 08/02/2015 with tubular adenoma, internal hemorrhoids, diverticulosis. EGD 10/22/2013 with hiatal hernia, gastritis, Boudreaux's esophagus with no dysplasia. NSAIDs: ASA 81 mg Anticoagulation: Brilinta Past Med Surg Social Fam HX - Past Medical History Medical history: COPD, coronary artery disease, CVA, GERD, hyperlipidemia, hypertension, kidney stones, myocardial infarction, peripheral artery disease, renal disease, other Psychiatric history: no psych history - Past Surgical History Surgical History: angioplasty/stent, cholecystectomy, orthopedic, other, vasectomy, other - Social History Smoking Status: Former smoker Smokeless Tobacco Status: No Alcohol use: none Drug use: none - Family History Father Living Status: Still Living Hx Family Cardiac Disorders: Yes Hx Family Respiratory Disorders: Yes (COPD) Hx Family Cancer: Yes Hx Family GI Disorders: Yes (Ulcers) Hx Family Endocrine Disorder: No Hx Family Neuromuscular Disorders: No Hx Family Neurologic Disorders: No Hx Family HEENT Disorders: No Hx Family Autoimmune Disorders: No Mother Living Status: Still Living Hx Family Cardiac Disorders: Yes ([place], stents) Hx Family Respiratory Disorders: No Hx Family Cancer: Yes (Stomach) Hx Family GI Disorders: No Hx Family Endocrine Disorder: Yes (DM) Hx Family Neuromuscular Disorders: No Hx Family Neurologic Disorders: No Hx Family HEENT Disorders: No Hx Family Autoimmune Disorders: No Review of Systems: GI: as per [facility] GENERAL: denies fever or chills EYES: denies yellow discoloration ENT: denies pain with swallowing or difficulty swallowing CARDIO: see HPI RESP Shortness of breath with exertion : denies change in color of urine NEURO: denies any weakness HEME: Denies any bruising MS: denies joint pain, joint swelling or back pain. DERM: denies rash or itching PSYCH: history of anxiety or depression - Constitutional Vitals: Temp Pulse Resp BP Pulse Ox 97.5 F L 61 16 129/76 97 07/03/17 07:11 07/03/17 07:11 07/03/17 07:11 07/03/17 07:11 07/03/17 07:11 Exam: CONSTITUTIONAL:~alert, no acute distress.~HEAD:~normocephalic.~EYES:~no jaundice.~NECK:~no obvious swelling.~HEART:~regular rate and rhythm, no murmur noted.~LUNGS:~bilateral good air entry.~ABDOMEN:~distended, firm, tender to RUQ and RLQ, no masses palpable, no organomegaly.~RECTAL EXAM:~Deferred.~ EXTREMITIES:~no clubbing, cyanosis or edema.~SKIN:~no stigmata of chronic liver disease.~NEUROLOGIC:~no obvious focal defect.~~~~ Results - Labs CBC & Chem 7: 07/03/17 05:10 07/03/17 05:10 Labs: Last Result Calcium 8.3 mg/dL (8.6-10.3) L 07/03/17 05:10 Troponin I < 0.03 ng/mL (< 0.04) 07/03/17 05:10 Triglycerides 100 mg/dL (< 150) 07/03/17 05:10 Entire Visit Hgb 12.2 g/dL (12.9-16.9) L 07/03/17 05:10 Hct 37.7 % (37.5-50.1) 07/03/17 05:10 PT 10.9 Seconds (9.4-12.1) 07/02/17 14:29 Total Bilirubin 0.5 mg/dL (0.3-1.0) 07/03/17 05:10 AST 19 Units/L (13-39) 07/03/17 05:10 ALT 17 Units/L (7-52) 07/03/17 05:10 Lipase 32 Units/L (11-82) 07/02/17 14:29 - ABG ABG results: PT/INR, D-dimer PT 10.9 Seconds (9.4-12.1) 07/02/17 14:29 Consult Discharge Plan - Plan Referrals: Jennyfer Ge, ESTATE PLANNING COUNSELOR [Primary Care Provider] - <Yoseph Liz - Last Filed: 07/03/17 19:05> Date of Encounter: 07/03/17 Time of Encounter: 18:00 - Time Spent With Patient Total time spent is greater than 50% in coordination of care (as documented) at patient's floor/unit and/or counseling patient: GI History of Present Illness - Data of Consult Requesting Physician: Barbie Villagomez MD - Consult Narrative History of present illness: Mr. Champion is a 57 year old male - Constitutional Vitals: Temp Pulse Resp BP Pulse Ox 97.7 F 69 14 129/82 95 07/03/17 18:32 07/03/17 18:32 07/03/17 18:32 07/03/17 18:32 07/03/17 18:32 Results - Labs CBC & Chem 7: 07/03/17 05:10 07/03/17 05:10 Labs: Last Result Calcium 8.3 mg/dL (8.6-10.3) L 07/03/17 05:10 Troponin I < 0.03 ng/mL (< 0.04) 07/03/17 05:10 Triglycerides 100 mg/dL (< 150) 07/03/17 05:10 Entire Visit Hgb 12.2 g/dL (12.9-16.9) L 07/03/17 05:10 Hct 37.7 % (37.5-50.1) 07/03/17 05:10 PT 10.9 Seconds (9.4-12.1) 07/02/17 14:29 Total Bilirubin 0.5 mg/dL (0.3-1.0) 07/03/17 05:10 AST 19 Units/L (13-39) 07/03/17 05:10 ALT 17 Units/L (7-52) 07/03/17 05:10 Lipase 32 Units/L (11-82) 07/02/17 14:29 - ABG ABG results: PT/INR, D-dimer PT 10.9 Seconds (9.4-12.1) 07/02/17 14:29 - Attending Attestation I have personally performed a face to face evaluation on this patient. I have reviewed and agree with the care plan. History and Exam by me shows: Patient with long-standing history of epigastric pain/bloating. Previous extensive workup including multiple imaging including EUS has been negative .Symptoms are concerning for IBS with constipation and and bloating. Recommendation: GoLYTELY for his constipation and we will recommend that he should be started on Linzess after discharge.
[2017-07-03] MEDS: *HR* OxyCODONE/APAP 10/325 TABLET PO PRN (15:52)
--- NOTE | 2017-07-03 16:37 | Internal Med Progress Note ---
Date of Encounter: 07/03/17 Time of Encounter: 09:45 - Assessment and plan (1) Abdominal pain Current Visit: Yes Status: Acute Assessment and plan: Suspected dyspepsia. CT abdomen/pelvis showed no acute abnormality. Patient underwent extensive workup in the past. EGD in 2016 showed no acute abnormality. Colonoscopy in 2016 showed nonbleeding polyps, diverticulosis, internal hemorrhoids. Endoscopic ultrasound in 2017 was normal. Gastroenterology consult appreciated, recommend symptomatic treatment as endoscopy cannot be completed at this time due to patient being on antiplatelet therapy due to recent coronary stents. Patient to follow low FODMAP diet as outpatient; continue supportive care with IV hydration, pain control, when necessary antiemetics, PPI, Gas-X, lactobacillus. Qualifiers: Abdominal location: epigastric Qualified Code(s): R10.13 - Epigastric pain (2) Abdominal bloating Current Visit: Yes Status: Acute Assessment and plan: Plan as above. (3) Essential hypertension Current Visit: Yes Status: Chronic Assessment and plan: Blood pressure well controlled. Resume home medications. (4) Tobacco abuse Current Visit: Yes Status: Chronic (5) COPD (chronic obstructive pulmonary disease) Current Visit: Yes Status: Chronic Assessment and plan: Not in acute exacerbation. Continue when necessary bronchodilators nebulization , Spiriva, supplemental oxygen as needed. Qualifiers: COPD type: unspecified COPD Qualified Code(s): J44.9 - Chronic obstructive pulmonary disease, unspecified (6) Coronary artery disease Current Visit: Yes Status: Chronic Assessment and plan: Continue aspirin, Brilinta, statin, beta quyen. Serial troponins negative for ACS. Received coronary stents, the most recent in September 2016. Qualifiers: Coronary Disease-Associated Artery/Lesion type: [place] artery [place] vs. transplanted heart: [place] heart Associated angina: without angina Qualified Code(s): I25.10 - Atherosclerotic heart disease of [place] coronary artery without angina pectoris (7) History of mitral valve replacement Current Visit: Yes Status: Chronic Assessment and plan: Mechanical mitral valve per patient. He has been on Coumadin, which has been discontinued by his airplane coverer. (8) Hyperlipidemia Current Visit: Yes Status: Chronic Qualifiers: Hyperlipidemia type: unspecified Qualified Code(s): E78.5 - Hyperlipidemia , unspecified - Subjective Interval history: Reports significant abdominal distension, discomfort and pain in central and epigastric area; associated with some nausea but no vomiting or diarrhea; had a bowel movement earlier today; no fever/chills; - Constitutional Vitals: Temp Pulse Resp BP Pulse Ox 97.5 F L 58 15 122/76 96 07/03/17 12:15 07/03/17 12:15 07/03/17 12:15 07/03/17 12:15 07/03/17 12:15 General appearance: Present: mild distress, A&O X 3, answers questions appropriately - Respiratory Respiratory exam: Present: CTAB. Absent: accessory muscle use, rales, rhonchi, wheezes - Cardiovascular Cardiovascular exam: Present: RRR, +S1, +S2. Absent: diastolic murmur, gallop, rubs, systolic murmur - GI/Abdominal GI/Abdominal exam: Present: distended (tympanic note), hyperactive bowel sounds , soft (tenderness in epigastrium and periumbilical area), no peritoneal signs. Absent: tenderness - Extremities Exam Extremities exam: Present: full ROM, warm, radial pulses palpable and symmetrical. Absent: calf tenderness, cyanotic, pedal edema - Neurological Exam Neurological exam: Present: CN II-XII intact, oriented X3, no focal deficits. Absent: pronater drift, facial droop, speech deficit Internal Medicine: Result - Labs CBC & Chem 7: 07/03/17 05:10 07/03/17 05:10 Labs: Short CBC 07/03/17 Range/Units 05:10 WBC 5.2 (4.3-11.1) K/mcL Hgb 12.2 L (12.9-16.9) g/dL Hct 37.7 (37.5-50.1) % Plt Count 149 (140-400) K/mcL BMP 07/03/17 05:10 Sodium 140 Potassium 4.0 Chloride 111 H Carbon Dioxide 24 BUN 16 Creatinine 0.95 Glucose 96 Calcium 8.3 L Cardiac Enzymes 07/02/17 07/03/17 Range/Units 22:23 05:10 Troponin I < 0.03 < 0.03 (< 0.04) ng/mL Liver Function 07/03/17 Range/Units 05:10 Total Bilirubin 0.5 (0.3-1.0) mg/dL AST 19 (13-39) Units/L ALT 17 (7-52) Units/L Alkaline Phosphatase 78 (34-104) Units/L Albumin 3.5 (3.5-5.7) g/dL - ABG Interpretation ABG results: PT/INR, D-dimer PT 10.9 Seconds (9.4-12.1) 07/02/17 14:29 Consult Discharge Plan - Plan Referrals: Jennyfer Ge, WINDOW COVERING SALES CONSULTANT [Primary Care Provider] -
[2017-07-03] MEDS: *HR* Heparin 5,000 UNIT/ML VIAL SQ SCH (17:10)
[2017-07-03] MEDS ORDERED: SODIUM CHLORIDE/NAHCO3/KCL/PEG 4,000 ML SOLN.RECON PO ONE (18:38)
[2017-07-03] MEDS ORDERED: Mirtazapine 15 MG TABLET PO SCH (21:00)
[2017-07-04] MEDS: *HR* Heparin 5,000 UNIT/ML VIAL SQ SCH (05:25)
[2017-07-04] MEDS ORDERED: SODIUM CHLORIDE/NAHCO3/KCL/PEG 4,000 ML SOLN.RECON PO ONE (08:00)
[2017-07-04] MEDS: Tiotropium 18 MCG inhalation IH SCH (08:07)
[2017-07-04] MEDS: Metoprolol XL (24 HR) Succ 25 MG TAB.ER.24H PO SCH (09:20)
[2017-07-04] MEDS: Aspirin 81 MG TAB.CHEW PO SCH (09:20)
[2017-07-04] MEDS: *HR* Ticagrelor 90 MG TABLET PO SCH (09:20)
[2017-07-04] MEDS: ALPRAZolam 0.5 MG TABLET PO SCH (09:20)
[2017-07-04] MEDS: Lactobacillus 1 EACH CAP.SPRINK PO SCH (09:20)
[2017-07-04] MEDS: Simethicone 80 MG TAB.CHEW PO SCH (09:20)
[2017-07-04] MEDS: *HR* OxyCODONE/APAP 10/325 TABLET PO PRN (09:23)
--- NOTE | 2017-07-04 10:06 | Discharge Summary ---
Date of Encounter: 07/04/17 Time of Encounter: 10:04 - Discharge Diagnosis (1) Abdominal pain Priority: Primary Status: Acute Qualifiers: Abdominal location: epigastric Qualified Code(s): R10.13 - Epigastric pain (2) Abdominal bloating Priority: Primary Status: Acute (3) Essential hypertension Priority: Secondary Status: Chronic (4) Tobacco abuse Priority: Secondary Status: Chronic (5) COPD (chronic obstructive pulmonary disease) Priority: Secondary Status: Chronic Qualifiers: COPD type: unspecified COPD Qualified Code(s): J44.9 - Chronic obstructive pulmonary disease, unspecified (6) Coronary artery disease Priority: Secondary Status: Chronic Qualifiers: Coronary Disease-Associated Artery/Lesion type: tribe artery [place] vs. transplanted heart: tribe heart Associated angina: without angina Qualified Code(s): I25.10 - Atherosclerotic heart disease of tribe coronary artery without angina pectoris (7) History of mitral valve replacement Priority: Secondary Status: Chronic (8) Hyperlipidemia Priority: Secondary Status: Chronic Qualifiers: Hyperlipidemia type: unspecified Qualified Code(s): E78.5 - Hyperlipidemia , unspecified Hospital course: Mr. Champion is a 57 year old male with the above medical problems, who was admitted with abdominal pain and distention. Patient has had multiple admissions with similar complaints with extensive workup in the past. CT abdomen/pelvis done in the emergency room showed no acute abnormality. EGD in 2016 showed no acute abnormality. Colonoscopy in 2016 showed nonbleeding polyps , diverticulosis, internal hemorrhoids. Endoscopic ultrasound in 2017 was normal. Patient was given supportive care with IV hydration, PPI, Gas-X and pain control. Gastroenterology consult appreciated, recommend symptomatic treatment as endoscopy cannot be completed at this time due to patient being on antiplatelet therapy due to recent coronary stents. Patient to follow low FODMAP diet as outpatient. Patient is feeling better today with improved abdominal distention and gas. He was explained about his dietary restrictions and he is medically stable for discharge at this time, with outpatient GI follow-up. Discharge discussed with: patient - Time Spent with Patient Total time spent providing and/or coordinating discharge services: Greater than 30 minutes (40 min) - Discharge Medications Home Medications: Albuterol Sulfate [Albuterol Inhaler] 2 puff IH Q6HR PRN 06/29/15 [History] Mirabegron [Myrbetriq] 50 mg PO DAILY 06/29/15 [History] Nitroglycerin [Nitrostat] 0.4 mg SL Q5M PRN 08/19/15 [History] Simethicone [Gas-X] 80 mg PO TID #21 tab.chew 12/29/15 [Rx] Aspirin 81 mg PO DAILY 09/12/16 [History] Mirtazapine [Remeron] 15 mg PO HS 09/12/16 [History] Metoprolol XL (24 HR) Succ [Toprol Xl] 12.5 mg PO DAILY #30 tab.er.24h 09/14/16 [Rx] Ticagrelor [Brilinta] 90 mg PO BID #60 tablet 09/14/16 [Rx] ALPRAZolam [Xanax 0.5 MG Tablet] 0.5 mg PO BID 07/02/17 [History] Atorvastatin Calcium [Lipitor] 80 mg PO HS 07/02/17 [History] Docusate [Colace] 100 mg PO BID 07/02/17 [History] L. Acidophilus/Pectin, [place] [Acidophilus Probiotic Capsule] 1 each PO DAILY [History] Oxycodone HCl/Acetaminophen [Endocet 10-325 mg Tablet] 1 tab PO TID PRN [History] Pantoprazole Sodium [Protonix] 20 mg PO DAILY 07/02/17 [History] Tiotropium [place] [Spiriva Respimat] 2 puff IH DAILY 07/02/17 [History] Allergies/Adverse Reactions: 3 Allergy/AdvReac Type Severity Reaction Status Date / Time cephalexin [From Keflex] Allergy Hives Verified 07/02/17 13:49 ciprofloxacin [From Cipro] Allergy Hives Verified 07/02/17 13:49 clindamycin Allergy Rash Verified 07/02/17 13:49 meperidine [From Demerol] Allergy Rash Verified 07/02/17 13:49 Penicillins Allergy Rash Verified 07/02/17 13:49 sulfamethoxazole Allergy Rash Verified 07/02/17 13:49 [From Bactrim] trimethoprim [From Bactrim] Allergy Rash Verified 07/02/17 13:49 bupropion AdvReac Dizziness Verified 07/02/17 13:49 Date of admission: 07/02/17 17:59 Primary care physician: Jennyfer Ge CNP Discharging clinician: Barbie Villagomez Anticipated date of discharge: 07/04/17 - Constitutional Vitals: Temp Pulse Resp BP Pulse Ox 97.7 F 68 16 137/82 96 07/04/17 07:04 07/04/17 07:04 07/04/17 08:09 07/04/17 07:04 07/04/17 08:09 General appearance: Present: A&O X 3, answers questions appropriately - GI/Abdominal GI/Abdominal exam: Present: distended (improving distension ), normal bowel sounds, soft, no peritoneal signs. Absent: tenderness - Patient Status Disposition: Home, Self-Care Condition: Good Functional capacity at discharge: independent ambulation Overall status at discharge: patient is back to baseline - Discharge Instructions Follow Up With: Jennyfer Ge, [employer] [Primary Care Provider] - Additional Instructions: F/up with PCP in 1-2 weeks F/up with GI in 2-3 weeks - Diet and Activity Activity: resume usual activities as tolerated Diet: low fat, low cholesterol, low salt diet, other (low FODMAP diet)
[2017-07-04 10:52] VITALS: BP 129/79
--- NOTE | 2017-07-04 14:44 | Electrocardiograph Report ---
[place] [id number] Test Date: 2017-07-02 Pat Name: Warren Champion Department: [id number] Room: 3A Gender: M Resident Care Aide: YASMINE : 1960 Requested By: Lizett See Order Number: [id number] Reading MD: Mark Esteban DO Measurements Intervals [place] Rate: 64 P: 60 FL: 136 QRS: 85 QRSD: 104 T: 34 QT: 407 QTc: 416 Interpretive Statements SINUS RHYTHM POSSIBLE LEFT ATRIAL ENLARGEMENT POSSIBLE RIGHT VENTRICULAR CONDUCTION DELAY Electronically Signed On 07-04-2017 14:42:49 EDT by Mark Esteban DO
== END 2017-07-04 11:48 | disposition home or self-care (01) ==
LOC: EMEROO 13:44 → 3ANU 13:44
PROVIDERS: ADMIT Internal Medicine Cardiovascular Disease; ATTEND Internal Medicine

== ENCOUNTER 2022-01-01 04:39 | Inpatient (IN) ==
[2022-01-01 05:23] LABS: Basophils % 0.2 %; Eosinophils # 0.1 K/mcL (0.0-0.6); Eosinophils % 0.8 %; Hematocrit 34.3 % (37.5-50.1); Hemoglobin 10.9 g/dL (12.9-16.9); Immature Granulocytes % 0.3 % (0-4); Lymphocytes # 0.6 K/mcL (0.6-4.6); Lymphocytes % 8.9 %; Mean Corpuscular HGB Conc 31.8 g/dL (31.6-35.5); Mean Corpuscular Hemoglobin 28.9 pg (28.0-33.3); Mean Platelet Volume 10.9 fL (9.4-12.4); Monocytes # 0.5 K/mcL (0.0-1.3); Monocytes % 6.8 %; Neutrophils # 5.5 K/mcL (1.6-8.9); Platelet Count 155 K/mcL (140-400); Red Blood Count 3.77 M/mcL (4.19-5.50); Red Cell Distribution Width 15.7 % (11.5-14.5); White Blood Count 6.6 K/mcL (4.3-11.1)
[2022-01-01 05:43] LABS: BUN/Creatinine Ratio 16 (6-26); Blood Urea Nitrogen 16 mg/dL (8-23); Calcium 8.7 mg/dL (8.6-10.3); Carbon Dioxide 22 mEq/L (23-29); Chloride 110 mEq/L (98-107); Glucose 112 mg/dL (70-105); Osmolality,Calculated 290 (280-300); Potassium 3.8 mEq/L (3.5-5.1); Sodium 139 mEq/L (136-145); Troponin I < 0.03 ng/mL (< 0.04)
[2022-01-01 07:30] LABS: Alanine Aminotransferase 23 Units/L (7-52); Albumin 3.8 g/dL (3.5-5.7); Albumin/Globulin Ratio 1.4 (1.1-2.2); Alkaline Phosphatase 90 Units/L (34-104); Aspartate Amino Transferase 22 Units/L (13-39); Bilirubin,Direct 0.2 mg/dL (0.0-0.2); Bilirubin,Indirect 0.7 mg/dL (0.0-1.0); Bilirubin,Total 0.9 mg/dL (0.3-1.0); Globulin 2.7 g/dL (2.4-3.5); Lipase 30 Units/L (11-82); Total Protein 6.5 g/dL (6.4-8.9)
[2022-01-01 07:45] LABS: Bilirubin,Urine Negative (Negative); Blood,Urine Moderate (Negative); Clarity,Urine Clear (Clear); Color,Urine Light-Yellow (Yellow); Glucose,Urine (UA) Normal (Normal); Ketones,Urine Negative (Negative); Leukocyte Esterase,Urine Negative (Negative); Mucus,Urine Few per lpf (None-Few); Nitrite,Urine Negative (Negative); Protein,Urine 70 mg/dL (Neg-Trace); RBC,Urine 0-3 per hpf (0-3); Specific Gravity,Urine 1.012 (1.010-1.025); Urobilinogen,Urine Normal (Normal)
[2022-01-01] MEDS ORDERED: Naloxone 0.4 MG/ML INJ IVP PRN (10:49)
[2022-01-01] MEDS ORDERED: Furosemide 40 MG/4 ML VIAL IVP ONE (10:51)
[2022-01-01] MEDS: *HR* Heparin 5,000 UNIT/ML VIAL SQ SCH ×2 (15:18→20:51)
[2022-01-01] MEDS ORDERED: Nitroglycerin 0.4 MG TAB.SUBL SL PRN (17:23)
[2022-01-01] MEDS ORDERED: Simethicone 80 MG TAB.CHEW PO PRN (17:23)
[2022-01-01] MEDS: *HR* OxyCODONE/APAP 10/325 TABLET PO PRN (17:39)
[2022-01-01] MEDS: Mirtazapine 15 MG TABLET PO SCH (20:51)
[2022-01-01] MEDS: ALPRAZolam 0.5 MG TABLET PO SCH (20:51)
[2022-01-01] MEDS: Ticagrelor [Brilinta] 60 MG Tablet PO SCH (21:10)
[2022-01-02] MEDS: *HR* Heparin 5,000 UNIT/ML VIAL SQ SCH ×3 (04:45→20:38)
[2022-01-02 05:56] LABS: Basophils % 0.2 %; Eosinophils # 0.1 K/mcL (0.0-0.6); Eosinophils % 1.8 %; Hematocrit 32.8 % (37.5-50.1); Hemoglobin 10.6 g/dL (12.9-16.9); Immature Granulocytes % 0.5 % (0-4); Lymphocytes # 0.6 K/mcL (0.6-4.6); Mean Corpuscular HGB Conc 32.3 g/dL (31.6-35.5); Mean Corpuscular Hemoglobin 29.4 pg (28.0-33.3); Mean Corpuscular Volume 91.1 fL (83.0-100.0); Mean Platelet Volume 11.5 fL (9.4-12.4); Monocytes # 0.4 K/mcL (0.0-1.3); Monocytes % 7.9 %; Neutrophils # 3.3 K/mcL (1.6-8.9); Platelet Count 145 K/mcL (140-400); Red Cell Distribution Width 15.8 % (11.5-14.5); Segmented Neutrophils % 75.6 %; White Blood Count 4.4 K/mcL (4.3-11.1)
[2022-01-02 06:15] LABS: Calcium 8.5 mg/dL (8.6-10.3); Potassium 3.4 mEq/L (3.5-5.1)
[2022-01-02] MEDS: lisinopriL 5 MG TABLET PO SCH (09:12)
[2022-01-02] MEDS: Furosemide 40 MG/4 ML VIAL IVP SCH (09:12)
[2022-01-02] MEDS: ALPRAZolam 0.5 MG TABLET PO SCH ×2 (09:12→20:38)
[2022-01-02] MEDS: Aspirin 81 MG TAB.CHEW PO SCH (09:12)
[2022-01-02] MEDS: Linaclotide [Linzess] 145 MCG Capsule PO SCH (09:12)
[2022-01-02] MEDS: Metoprolol XL (24 HR) Succ 25 MG TAB.ER.24H PO SCH (09:12)
[2022-01-02] MEDS: Ticagrelor [Brilinta] 60 MG Tablet PO SCH ×3 (09:12→20:38)
[2022-01-02] MEDS: Loratadine 10 MG TABLET PO SCH (09:12)
[2022-01-02] MEDS: Tiotropium Br/Olodaterol Hcl [Stiolto Respimat] IH SCH (10:39)
[2022-01-02] MEDS: *HR* OxyCODONE/APAP 10/325 TABLET PO PRN ×2 (11:25→17:25)
[2022-01-02] MEDS ORDERED: Furosemide 20 MG/2 ML VIAL IVP ONE (18:00)
[2022-01-02] MEDS: Mirtazapine 15 MG TABLET PO SCH (20:38)
[2022-01-03] MEDS: *HR* Heparin 5,000 UNIT/ML VIAL SQ SCH ×3 (04:55→20:25)
[2022-01-03] MEDS: *HR* OxyCODONE/APAP 10/325 TABLET PO PRN ×3 (05:38→20:29)
[2022-01-03] MEDS: Tiotropium Br/Olodaterol Hcl [Stiolto Respimat] IH SCH (07:53)
[2022-01-03] MEDS: lisinopriL 5 MG TABLET PO SCH (09:28)
[2022-01-03] MEDS: Furosemide 40 MG/4 ML VIAL IVP SCH (09:28)
[2022-01-03] MEDS: Loratadine 10 MG TABLET PO SCH (09:29)
[2022-01-03] MEDS: Metoprolol XL (24 HR) Succ 25 MG TAB.ER.24H PO SCH (09:29)
[2022-01-03] MEDS: Aspirin 81 MG TAB.CHEW PO SCH (09:29)
[2022-01-03] MEDS: ALPRAZolam 0.5 MG TABLET PO SCH ×2 (09:29→20:26)
[2022-01-03] MEDS: Ticagrelor [Brilinta] 60 MG Tablet PO SCH ×2 (09:30→20:26)
[2022-01-03] MEDS: Linaclotide [Linzess] 145 MCG Capsule PO SCH (09:39)
[2022-01-03] MEDS ORDERED: methylPREDNISolone 125 MG/2 ML VIAL IVP ONE (12:43)
[2022-01-03] MEDS: Azithromycin 250 MG TABLET PO SCH (14:12)
[2022-01-03] MEDS: Mirtazapine 15 MG TABLET PO SCH (20:26)
[2022-01-04] MEDS: *HR* Heparin 5,000 UNIT/ML VIAL SQ SCH ×3 (06:25→21:08)
[2022-01-04] MEDS: Tiotropium Br/Olodaterol Hcl [Stiolto Respimat] IH SCH (07:37)
[2022-01-04] MEDS: Metoprolol XL (24 HR) Succ 25 MG TAB.ER.24H PO SCH (07:46)
[2022-01-04] MEDS: Furosemide 40 MG/4 ML VIAL IVP SCH (07:46)
[2022-01-04] MEDS: ALPRAZolam 0.5 MG TABLET PO SCH ×2 (07:47→21:06)
[2022-01-04] MEDS: Azithromycin 250 MG TABLET PO SCH (07:47)
[2022-01-04] MEDS: lisinopriL 5 MG TABLET PO SCH (07:47)
[2022-01-04] MEDS: Loratadine 10 MG TABLET PO SCH (07:47)
[2022-01-04] MEDS: Aspirin 81 MG TAB.CHEW PO SCH (07:47)
[2022-01-04] MEDS: *HR* OxyCODONE/APAP 10/325 TABLET PO PRN ×2 (07:47→13:47)
[2022-01-04] MEDS: Ticagrelor [Brilinta] 60 MG Tablet PO SCH ×2 (07:48→21:08)
[2022-01-04] MEDS: Linaclotide [Linzess] 145 MCG Capsule PO SCH (07:57)
[2022-01-04] MEDS ORDERED: predniSONE 20 MG TABLET PO SCH (09:00)
[2022-01-04 10:27] LABS: Calcium 8.5 mg/dL (8.6-10.3); Phosphorous 2.5 mg/dL (2.7-4.5); Potassium 3.9 mEq/L (3.5-5.1)
[2022-01-04] MEDS: Doxycycline 100 MG CAPSULE PO SCH ×2 (13:29→21:07)
[2022-01-04] MEDS: Albumin 25% 25gram/100mL 25 GM/100 ML IV.SOLN IVPB SCH ×2 (13:43→15:30)
[2022-01-04] MEDS: Ipratropium/Albuterol Neb 3 ML IH SCH ×4 (15:53→22:59)
[2022-01-04] MEDS: MethylPREDNISolone 40 MG/ML VIAL IVP SCH (17:17)
[2022-01-04] MEDS: Mirtazapine 15 MG TABLET PO SCH (21:06)
[2022-01-05] MEDS: Albumin 25% 25gram/100mL 25 GM/100 ML IV.SOLN IVPB SCH (00:57)
[2022-01-05] MEDS: *HR* OxyCODONE/APAP 10/325 TABLET PO PRN ×2 (00:57→08:07)
[2022-01-05] MEDS: Ipratropium/Albuterol Neb 3 ML IH SCH ×3 (03:58→11:20)
[2022-01-05 05:15] LABS: Calcium 8.8 mg/dL (8.6-10.3); Magnesium 2.2 mg/dL (1.6-2.6); Phosphorous 2.1 mg/dL (2.7-4.5); Potassium 4.1 mEq/L (3.5-5.1)
[2022-01-05] MEDS: MethylPREDNISolone 40 MG/ML VIAL IVP SCH (06:05)
[2022-01-05] MEDS: *HR* Heparin 5,000 UNIT/ML VIAL SQ SCH (06:06)
[2022-01-05] MEDS: Tiotropium Br/Olodaterol Hcl [Stiolto Respimat] IH SCH (07:44)
[2022-01-05] MEDS: Metoprolol XL (24 HR) Succ 25 MG TAB.ER.24H PO SCH (08:06)
[2022-01-05] MEDS: Doxycycline 100 MG CAPSULE PO SCH (08:06)
[2022-01-05] MEDS: Azithromycin 250 MG TABLET PO SCH (08:06)
[2022-01-05] MEDS: Aspirin 81 MG TAB.CHEW PO SCH (08:07)
[2022-01-05] MEDS: lisinopriL 5 MG TABLET PO SCH (08:07)
[2022-01-05] MEDS: Loratadine 10 MG TABLET PO SCH (08:07)
[2022-01-05] MEDS: ALPRAZolam 0.5 MG TABLET PO SCH (08:08)
[2022-01-05] MEDS: Ticagrelor [Brilinta] 60 MG Tablet PO SCH (08:08)
[2022-01-05] MEDS: Linaclotide [Linzess] 145 MCG Capsule PO SCH (08:09)
[2022-01-05 11:09] VITALS: BP 149/78; PULSE 89; TEMP 98.1
[2022-01-05 11:21] VITALS: O2SAT 93
== END 2022-01-05 13:35 | disposition home or self-care (01) | DRG 291 ==
LOC: 3BNU 04:39 → EMEROOARM 04:39 → SUATTDRO 16:01 → 3BNU 16:51 → SUATTDRO 01-03 15:53
PROVIDERS: ADMIT Internal Medicine; ATTEND Internal Medicine